=== PATIENT | male | born 2000 | race African-American/Black ===

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

== ENCOUNTER 2020-05-07 07:25 | Emergency (ER) | payer OTHER ==
[2020-05-07] MEDS ORDERED: NA CHLORIDE 0.9% 1,000 ML ONE (07:58)
[2020-05-07] MEDS ORDERED: ONDANSETRON 4 MG/2 ML VIAL ONE (07:59)
[2020-05-07 08:08] LABS: Absolute Lymphocytes (CBC) 0.3 K/uL (0.7-4.9); Basophils % 0.3 % (0-1.3); Hematocrit 50.8 % (39.6-49.0); Lymphocytes % 3.3 % (15.3-44.8); MPV 9.9 fL (7.6-11.3); RBC Red Blood Cell Count 6.24 M/uL (4.33-5.43)
[2020-05-07 08:16] LABS: ALT/SGPT 40 U/L (12-78); AST/SGOT 23 U/L (15-37); Albumin 4.2 g/dL (3.4-5.0); Alkaline Phosphatase 98 U/L (45-117); BUN Blood Urea Nitrogen 12 mg/dL (7-18); Bicarbonate 27 mmol/L (21-32); Bilirubin Direct 0.2 mg/dL (0-0.2); Bilirubin Total 0.8 mg/dL (0.2-1.0); Glucose Level 104 mg/dL (74-106); Lipase 55 U/L (73-393); Protein, Total 8.2 g/dL (6.4-8.2); Sodium Level 141 mmol/L (136-145)
[2020-05-07 08:29] LABS: White Blood Cell Scan OK (OK)
[2020-05-07 08:30] LABS: Blood Morphology Comment NOT SEEN (NOT SEEN); Platelet Estimate ADEQ; Platelets, Giant FEW
--- NOTE | 2020-05-07 09:04 | ER ---
Nurse's Notes [facility] Name: Alessandra Harp Jr Age: 20 yrs Sex: Male : 2000 Arrival Date: 05/07/2020 Time: 07:28 Bed 7 Private MD: Diagnosis: Nausea with vomiting, unspecified Presentation: 05/07 07:35 Chief complaint: N/V and SOB x 2 days. Coronavirus screen: Client presents with at hb least one sign or symptom that may indicate coronavirus-19. Standard/surgical mask placed on the client. Provider contacted for isolation considerations. Ebola Screen: No symptoms or risks identified at this time. Initial Sepsis Screen: Does the patient meet any 2 criteria? No. Patient's initial sepsis screen is negative. Does the patient have a suspected source of infection? No. Patient's initial sepsis screen is negative. Risk Assessment: Do you want to hurt yourself or someone else? Patient reports no desire to harm self or others. Onset of symptoms was May 06, 2020. 07:35 Method Of Arrival: Ambulatory hb 07:35 Acuity: SIVA 3 hb Historical: - Allergies: 07:38 NKDA; hb - Home Meds: 07:38 Adderall XR 20 mg Oral cp24 once daily [Active]; albuterol sulfate 2.5 mg/0.5 mL Inhl hb nebu 0.5 mL every 6 hours [Active]; [place] Carbonate Oral [Active]; ProAir HFA 90 mcg/actuation inhalation HFAA 1 puff every 4 hours [Active]; pt stated he no longer takes meds [Active]; - PMHx: 07:38 ADD/ADHD; Asthma; Bipolar disorder; hb - PSHx: 07:38 None; hb - Immunization history:: Adult Immunizations up to date. - Social history:: Smoking status: Patient denies any tobacco usage or history of. - Family history:: not pertinent. - Hospitalizations: : No recent hospitalization is reported. Screenin:39 Abuse screen: Denies threats or abuse. Denies injuries from another. Nutritional hb screening: No deficits noted. Tuberculosis screening: No symptoms or risk factors identified. Fall Risk None identified. Assessment: 07:48 General: Appears in no apparent distress. Behavior is calm, cooperative. Pain: Denies hb pain. Neuro: Level of Consciousness is awake, alert, obeys commands, Oriented to person, place, time, situation. Cardiovascular: Patient's skin is warm and dry. Respiratory: Reports shortness of breath on exertion Respiratory effort is even, unlabored, Respiratory pattern is regular, symmetrical. GI: Reports nausea, vomiting. : No signs and/or symptoms were reported regarding the genitourinary system. EENT: No signs and/or symptoms were reported regarding the EENT system. Derm: Skin is pink, warm \T\ dry. Musculoskeletal: No signs and/or symptoms reported regarding the musculoskeletal system. 08:30 Reassessment: Patient appears in no apparent distress at this time. Patient and/or hb family updated on plan of care and expected duration. Pain level reassessed. Patient is alert, oriented x 3, equal unlabored respirations, skin warm/dry/pink. Vital Signs: 07:35 BP 135 / 86; Pulse 64; Resp 16; Temp 97.8; Pulse Ox 99% on R/A; hb 08:30 BP 124 / 68; Pulse 66; Resp 15; Pulse Ox 99% on R/A; hb ED Course: 07:28 Patient arrived in ED. ds1 07:31 Joey Manriquez MD is Attending Physician. rn 07:35 Alissa Stone RN is Primary Nurse. hb 07:38 Triage completed. hb 07:38 Arm band placed on. hb 07:39 Patient has correct armband on for positive identification. Bed in low position. Call hb light in reach. 07:44 Inserted saline lock: 20 gauge in right antecubital area, using aseptic technique. hb ,using aseptic technique. by [place] Blood collected. 09:02 Basic Metabolic Panel Sent. sv 09:11 No provider procedures requiring assistance completed. IV discontinued, intact, hb bleeding controlled, No redness/swelling at site. Administered Medications: 07:46 Drug: Zofran (Ondansetron) 4 mg Route: IVP; Site: right antecubital; hb 08:15 Follow up: Response: No adverse reaction hb 07:47 Drug: NS 0.9% 1000 ml Route: IV; Rate: 1000 ml; Site: right antecubital; hb 08:32 Follow up: Response: No adverse reaction; IV Status: Completed infusion; IV Intake: hb 1000ml Intake: 08:32 IV: 1000ml; Total: 1000ml. hb Outcome: 09:03 Discharge ordered by . rn 09:11 Discharged to home ambulatory. hb 09:11 Condition: stable 09:11 Discharge instructions given to patient, Instructed on discharge instructions, follow up and referral plans. medication usage, Demonstrated understanding of instructions, follow-up care, medications, Prescriptions given X 1. 09:12 Patient left the ED. hb Signatures: Vanna Jain RN RN Anny Cuevas ds1 Joey Manriquez MD MD rn Baxter, Heather, RN RN hb Corrections: (The following items were deleted from the chart) 07:48 07:35 BP 135 / 86; Pulse 64bpm; Resp 16bpm; Pulse Ox 99% RA; hb hb
--- NOTE | 2020-05-07 09:04 | EDPHYS ---
Physician Documentation [facility] Name: Alessandra Harp Jr Age: 20 yrs Sex: Male : 2000 Arrival Date: 05/07/2020 Time: 07:28 Bed 7 Private MD: ED Physician Joey Manriquez HPI: 05/07 07:44 This 20 yrs old Black Male presents to ER via Ambulatory with complaints of rn Nausea/Vomiting. 07:44 The patient presents to the emergency department with nausea, vomiting, diarrhea. The rn patient presents to the emergency department with abdominal pain. Onset: The symptoms/episode began/occurred yesterday. Possible causes: bad food exposure. The symptoms are aggravated by nothing. The symptoms are alleviated by nothing. Associated signs and symptoms: Pertinent positives: diarrhea, nausea, vomiting, Pertinent negatives: abdominal pain, fever, GI bleeding. Severity of symptoms: At their worst the symptoms were mild in the emergency department the symptoms are unchanged. It is unknown whether or not the patient has had similar symptoms in the past. The patient has not recently seen a physician. Reports went ot visit family in [place], came back yesterday, began with nausea/vomiting/diarrhea, no blood in stool, no fever, no abd pain. Reports 1 other person also with vomiting in group. No cough. Reports has anxiety and during episodes of vomiting felt sob, no cough, not currently sob.. Historical: - Allergies: 07:38 NKDA; hb - Home Meds: 07:38 Adderall XR 20 mg Oral cp24 once daily [Active]; albuterol sulfate 2.5 mg/0.5 mL Inhl hb nebu 0.5 mL every 6 hours [Active]; [place] Carbonate Oral [Active]; ProAir HFA 90 mcg/actuation inhalation HFAA 1 puff every 4 hours [Active]; pt stated he no longer takes meds [Active]; - PMHx: 07:38 ADD/ADHD; Asthma; Bipolar disorder; hb - PSHx: 07:38 None; hb - Immunization history:: Adult Immunizations up to date. - Social history:: Smoking status: Patient denies any tobacco usage or history of. - Family history:: not pertinent. - Hospitalizations: : No recent hospitalization is reported. ROS: 07:44 Constitutional: Negative for fever, chills, and weight loss, Eyes: Negative for injury, rn pain, redness, and discharge, Neck: Negative for injury, pain, and swelling, Cardiovascular: Negative for chest pain, palpitations, and edema, Respiratory: Negative for shortness of breath, cough, wheezing, and pleuritic chest pain, Abdomen/GI: + nausea/vomiting/diarrhea, no abd pain Back: Negative for injury and pain, MS/Extremity: Negative for injury and deformity, Skin: Negative for injury, rash, and discoloration, Neuro: Negative for headache, weakness, numbness, tingling, and seizure. 07:44 All other systems are negative. Exam: 07:44 Constitutional: This is a well developed, well nourished patient who is awake, alert, rn and in no acute distress. Ambulatory to room without difficulty. Head/Face: Normocephalic, atraumatic. Eyes: Pupils equal round and reactive to light, extra-ocular motions intact. Lids and lashes normal. Conjunctiva and sclera are non-icteric and not injected. Cornea within normal limits. Periorbital areas with no swelling, redness, or edema. ENT: MMM Cardiovascular: Regular rate and rhythm. No pulse deficits. Respiratory: No increased work of breathing, no retractions or nasal flaring. Abdomen/GI: soft, non-tender Skin: Warm, dry with normal turgor. Normal color with no rashes, no lesions, and no evidence of cellulitis. MS/ Extremity: Pulses equal, no cyanosis. Neurovascular intact. Full, normal range of motion. Equal circumference. Neuro: Awake and alert, GCS 15, oriented to person, place, time, and situation. Cranial nerves II-XII grossly intact. Motor strength 5/5 in all extremities. Sensory grossly intact. Cerebellar exam normal. Normal gait. Vital Signs: 07:35 BP 135 / 86; Pulse 64; Resp 16; Temp 97.8; Pulse Ox 99% on R/A; hb 08:30 BP 124 / 68; Pulse 66; Resp 15; Pulse Ox 99% on R/A; hb MDM: 07:31 Patient medically screened. rn 09:02 Differential diagnosis: Nonspecific abd pain, pancreatitis, appendicitis, viral rn gastroenteritis, gastroenteritis, viral syndrome, food poisoning. Data reviewed: vital signs, nurses notes, lab test result(s), and as a result, I will discharge patient. Counseling: I had a detailed discussion with the patient and/or guardian regarding: the historical points, exam findings, and any diagnostic results supporting the discharge/admit diagnosis, lab results, the need for outpatient follow up, to return to the emergency department if symptoms worsen or persist or if there are any questions or concerns that arise at home. Response to treatment: the patient's symptoms have markedly improved after treatment, and as a result, I will discharge patient. Special discussion: I discussed with the patient/guardian in detail that at this point there is no indication for admission to the hospital. It is understood, however, that if the symptoms persist or worsen the patient needs to return immediately for re-evaluation. ED course: No elevation of WBC, afebrile, no abd tenderness on exam, will not get CT abdomen for further evaluation at this time, will dc home with prn zofran and return precautions. . 05/07 07:37 Order name: Basic Metabolic Panel rn 05/07 07:37 Order name: CBC with Diff; Complete Time: 09:02 05/07 07:37 Order name: Hepatic Function; Complete Time: 09:02 rn 05/07 07:37 Order name: Lipase; Complete Time: 09:02 rn 05/07 07:38 Order name: Basic Metabolic Panel; Complete Time: 09:02 EDWI 05/07 08:10 Order name: CBC Smear Scan; Complete Time: 09:02 [facility] 05/07 07:37 Order name: IV Saline Lock; Complete Time: 07:47 rn 05/07 07:37 Order name: Labs collected and sent; Complete Time: 07:47 rn Administered Medications: 07:46 Drug: Zofran (Ondansetron) 4 mg Route: IVP; Site: right antecubital; hb 08:15 Follow up: Response: No adverse reaction hb 07:47 Drug: NS 0.9% 1000 ml Route: IV; Rate: 1000 ml; Site: right antecubital; hb 08:32 Follow up: Response: No adverse reaction; IV Status: Completed infusion; IV Intake: hb 1000ml Disposition: 05/07/20 09:03 Discharged to Home. Impression: Nausea with vomiting, unspecified. - Condition is Stable. - Discharge Instructions: Nausea and Vomiting, Adult. - Prescriptions for Zofran ODT 4 mg Oral tablet,disintegrating - place 1 tablet by TRANSLINGUAL route every 8 hours As needed; 20 tablet. - Medication Reconciliation Form, Thank You Letter, Antibiotic Education, Prescription Opioid Use form. - Follow up: Private Physician; When: As needed; Reason: Recheck today's complaints, Re-evaluation by your physician. - Problem is new. - Symptoms have improved. Signatures: Dispatcher [employer] EDJoey Nash MD MD rn Baxter, Heather, RN RN hb Corrections: (The following items were deleted from the chart) 09:12 09:03 05/07/2020 09:03 Discharged to Home. Impression: Nausea with vomiting, hb unspecified. Condition is Stable. Forms are Medication Reconciliation Form, Thank You Letter, Antibiotic Education, Prescription Opioid Use. Follow up: Private Physician; When: As needed; Reason: Recheck today's complaints, Re-evaluation by your physician. Problem is new. Symptoms have improved. rn
[2020-05-07 09:16] VITALS: TEMP 97.8; O2SAT 99
[2020-05-07 09:17] VITALS: BP 124/68
== END 2020-05-07 09:12 | disposition home or self-care (01) ==
LOC: ER 07:25
DX: R11.2 Nausea with vomiting, unspecified (principal); J45.909 Unspecified asthma, uncomplicated; F90.9 Attention-deficit hyperactivity disorder, unspecified type
CPT/HCPCS: 85025; 80048; 36415; 80076; 83690; J7030; J2405; 96361; 96374; 99284

== ENCOUNTER 2020-05-07 23:25 | Emergency (ER) | payer OTHER ==
--- NOTE | 2020-05-08 01:06 | ER ---
Nurse's Notes [facility] Name: Alessandra Harp Jr Age: 20 yrs Sex: Male : 2000 Arrival Date: 05/07/2020 Time: 23:27 Bed 8 Private MD: Diagnosis: Shortness of breath-resolved Presentation: 05/07 23:31 Chief complaint: Seen this AM in this ER for same complaints, reports not feeling sg better at this time. Risk Assessment: Do you want to hurt yourself or someone else? Patient reports no desire to harm self or others. Onset of symptoms was May 07, 2020. Care prior to arrival: None. Transition of care: patient was not received from another setting of care. 23:31 Method Of Arrival: Ambulatory 23:31 Acuity: SIVA 4 05/08 00:28 Coronavirus screen: Client denies travel out of the [place] in the last 14 days. Ebola mg2 Screen: No symptoms or risks identified at this time. Initial Sepsis Screen: Does the patient meet any 2 criteria? No. Patient's initial sepsis screen is negative. Does the patient have a suspected source of infection? No. Patient's initial sepsis screen is negative. Triage Assessment: 00:29 General: Appears in no apparent distress. comfortable, Behavior is calm, cooperative. mg2 Respiratory: the patient has mild shortness of breath. Historical: - Allergies: 05/07 23:32 NKDA; sg - PMHx: 23:32 ADD/ADHD; Asthma; Bipolar disorder; sg - PSHx: 23:32 None; sg - Immunization history:: Flu vaccine status is unknown. - Social history:: Patient/guardian denies using alcohol, street drugs, IV drugs, The patient lives with family, Smoking status: Patient reports the use of cigarette tobacco products. - Family history:: not pertinent. Screenin/23 00:28 Abuse screen: Denies threats or abuse. Denies injuries from another. Nutritional mg2 screening: No deficits noted. Tuberculosis screening: No symptoms or risk factors identified. Fall Risk None identified. Assessment: 00:26 General: Appears in no apparent distress. comfortable, Behavior is calm, cooperative. mg2 Pain: Complains of pain in chest. Neuro: Level of Consciousness is awake, alert, obeys commands, Oriented to person, place, time, situation. Cardiovascular: Rhythm is regular. Respiratory: Reports shortness of breath Airway is patent Respiratory effort is even, unlabored, Breath sounds are clear. GI: No signs and/or symptoms were reported involving the gastrointestinal system. : No signs and/or symptoms were reported regarding the genitourinary system. EENT: No signs and/or symptoms were reported regarding the EENT system. Derm: Skin is intact, is healthy with good turgor. Musculoskeletal: Circulation, motion, and sensation intact. Capillary refill < 3 seconds. Vital Signs: 00:26 BP 140 / 85; Pulse 56; Resp 18; Temp 98.4(O); Pulse Ox 97% ; Weight 94.8 kg; Height 6 mg2 ft. 0 in. (182.88 cm); 01:16 BP 126 / 73; Pulse 59; Resp 18; Pulse Ox 98% on R/A; mg2 00:26 Body Mass Index 28.35 (94.80 kg, 182.88 cm) mg2 ED Course: 05/07 23:27 Patient arrived in ED. cf2 23:31 Triage completed. sg 23:32 Arm band placed on. sg 05/08 00:22 Radha Evans MD is Attending Physician. ma2 00:22 Fidel Cruz RN is Primary Nurse. mg2 00:28 No provider procedures requiring assistance completed. Patient did not have IV access mg2 during this emergency room visit. 00:29 Patient has correct armband on for positive identification. Pulse ox on. NIBP on. mg2 Administered Medications: 00:26 Not Given (na): DuoNeb (albuterol 2.5 mg, ipratropium 0.5 mg) (3:1) (2.5 mg - 0.5 mg) 3 ma2 ml Nebulizer once Outcome: 01:05 Discharge ordered by . [email or web address] 01:16 Discharged to home ambulatory. mg2 01:16 Condition: stable 01:16 Discharge instructions given to patient, Instructed on discharge instructions, follow up and referral plans. Demonstrated understanding of instructions, follow-up care. 01:16 Patient left the ED. mg2 Signatures: Woody New RN RN sg Alzahri, Mohammad, MD MD ma2 Gardose, Michele, RN RN [facility] [place]un[place] Elizalde 2
--- NOTE | 2020-05-08 01:06 | EDPHYS ---
Physician Documentation [facility] Name: Alessandra Harp Jr Age: 20 yrs Sex: Male : 2000 Arrival Date: 05/07/2020 Time: 23:27 Bed 8 Private MD: ED Physician Radha Evans HPI: 05/08 00:29 This 20 yrs old Black Male presents to ER via Ambulatory with complaints of Breathing ma2 Difficulty, Abdominal Pain, Chills. 00:29 The patient has shortness of breath at rest. Onset: The symptoms/episode began/occurred ma2 gradually, 2 hour(s) ago. Associated signs and symptoms: Pertinent negatives: productive cough, dizziness, hemoptysis, loss of consciousness, nausea, visual changes. Severity of symptoms: At their worst the symptoms were very mild in the emergency department the symptoms have resolved. The patient has not experienced similar symptoms in the past. Historical: - Allergies: 05/07 23:32 NKDA; sg - PMHx: 23:32 ADD/ADHD; Asthma; Bipolar disorder; sg - PSHx: 23:32 None; sg - Immunization history:: Flu vaccine status is unknown. - Social history:: Patient/guardian denies using alcohol, street drugs, IV drugs, The patient lives with family, Smoking status: Patient reports the use of cigarette tobacco products. - Family history:: not pertinent. ROS: 05/08 00:29 Constitutional: Negative for fever, chills, and weight loss. ma2 All other systems are negative. Exam: 00:29 Constitutional: This is a well developed, well nourished patient who is awake, alert, ma2 and in no acute distress. Head/Face: Normocephalic, atraumatic. Eyes: Pupils equal round and reactive to light, extra-ocular motions intact. Lids and lashes normal. Conjunctiva and sclera are non-icteric and not injected. Cornea within normal limits. Periorbital areas with no swelling, redness, or edema. ENT: Nares patent. No nasal discharge, no septal abnormalities noted. Tympanic membranes are normal and external auditory canals are clear. Oropharynx with no redness, swelling, or masses, exudates, or evidence of obstruction, uvula midline. Mucous membranes moist. Neck: Trachea midline, no thyromegaly or masses palpated, and no cervical lymphadenopathy. Supple, full range of motion without nuchal rigidity, or vertebral point tenderness. No Meningismus. Chest/axilla: Normal chest wall appearance and motion. Nontender with no deformity. No lesions are appreciated. Cardiovascular: Regular rate and rhythm with a normal S1 and S2. No gallops, murmurs, or rubs. Normal PMI, no JVD. No pulse deficits. Respiratory: Lungs have equal breath sounds bilaterally, clear to auscultation and percussion. No rales, rhonchi or wheezes noted. No increased work of breathing, no retractions or nasal flaring. Abdomen/GI: Soft, non-tender, with normal bowel sounds. No distension or tympany. No guarding or rebound. No evidence of tenderness throughout. Back: No spinal tenderness. No costovertebral tenderness. Full range of motion. Skin: Warm, dry with normal turgor. Normal color with no rashes, no lesions, and no evidence of cellulitis. MS/ Extremity: Pulses equal, no cyanosis. Neurovascular intact. Full, normal range of motion. Neuro: Awake and alert, GCS 15, oriented to person, place, time, and situation. Cranial nerves II-XII grossly intact. Motor strength 5/5 in all extremities. Sensory grossly intact. Cerebellar exam normal. Normal gait. Vital Signs: 00:26 BP 140 / 85; Pulse 56; Resp 18; Temp 98.4(O); Pulse Ox 97% ; Weight 94.8 kg; Height 6 mg2 ft. 0 in. (182.88 cm); 01:16 BP 126 / 73; Pulse 59; Resp 18; Pulse Ox 98% on R/A; mg2 00:26 Body Mass Index 28.35 (94.80 kg, 182.88 cm) mg2 MDM: 00:22 Patient medically screened. ma2 00:29 Differential diagnosis: Anxiety Reaction asthma, Bronchitis reactive airway disease. ma2 Data reviewed: vital signs, nurses notes. 05/08 00:26 Order name: EKG - Nurse/Tech; Complete Time: 00:29 mg2 Administered Medications: 00:26 Not Given (na): DuoNeb (albuterol 2.5 mg, ipratropium 0.5 mg) (3:1) (2.5 mg - 0.5 mg) 3 ma2 ml Nebulizer once Disposition: 05/08/20 01:05 Discharged to Home. Impression: Shortness of breath - resolved. - Condition is Stable. - Discharge Instructions: Shortness of Breath, [id number]. - Medication Reconciliation Form, Thank You Letter, Antibiotic Education, Prescription Opioid Use form. - Follow up: Private Physician; When: Tomorrow; Reason: If symptoms return, Continuance of care. Signatures: Woody New RN RN Radha Evans MD MD ma2 Fidel Cruz RN RN mg2 Corrections: (The following items were deleted from the chart) 01:16 01:05 05/08/2020 01:05 Discharged to Home. Impression: Shortness of breath - resolved. mg2 Condition is Stable. Discharge Instructions: Shortness of Breath, [id number]. Forms are Medication Reconciliation Form, Thank You Letter, Antibiotic Education, Prescription Opioid Use. Follow up: Private Physician; When: Tomorrow; Reason: If symptoms return, Continuance of care. ma2
[2020-05-08 01:36] VITALS: TEMP 98.4
[2020-05-08 01:37] VITALS: BP 126/73; O2SAT 98
--- NOTE | 2020-05-09 07:05 | EKG ---
Test Date: 2020-05-07 Test Time: 23:32:19 Door Patcher: MG MEASUREMENT RESULTS: Intervals: Rate: 57 IL: 176 QRSD: 116 QT: 402 QTc: 391 [place]: P: IL: 176 QRS: -52 T: 18 INTERPRETIVE STATEMENTS: Sinus bradycardia with sinus arrhythmia Left axis deviation Septal infarct, age undetermined Abnormal ECG Compared to ECG 04/20/2017 17:18:59 Sinus rhythm no longer present Myocardial infarct finding still present Electronically Signed On 05-09-20 07:02:37 CDT by Juan Luis Mahajan
== END 2020-05-08 01:16 | disposition home or self-care (01) ==
LOC: ER 23:25
DX: R06.02 Shortness of breath (principal); F17.210 Nicotine dependence, cigarettes, uncomplicated
CPT/HCPCS: 93005; 99283

== ENCOUNTER 2020-05-20 16:37 | Emergency (ER) | payer OTHER ==
--- NOTE | 2020-05-20 18:59 | RAD REPORT ---
EXAM DESCRIPTION: RAD - Chest Single View - 05/20/2020 6:35 pm CLINICAL HISTORY: cough, sob Chest pain. COMPARISON: Chest Pa And Lat (2 Views) dated 04/20/2017; Chest Single View dated 04/18/2017; Chest Singl e View dated 12/29/2015 FINDINGS: Portable technique limits examination quality. The lungs are grossly clear. The heart is normal in size. No displaced fractures. IMPRESSION: No acute intrathoracic process suspected.
[2020-05-20] MEDS ORDERED: NA CHLORIDE 0.9% 1,000 ML ONE (20:27)
[2020-05-20 20:28] LABS: Basophils % 0.8 % (0-1.3); Lymphocytes % 29.8 % (15.3-44.8); MPV 8.8 fL (7.6-11.3); RBC Red Blood Cell Count 5.61 M/uL (4.33-5.43)
[2020-05-20 20:45] LABS: BUN Blood Urea Nitrogen 8 mg/dL (7-18); Bicarbonate 29 mmol/L (21-32); Glucose Level 89 mg/dL (74-106); Potassium 3.6 mmol/L (3.5-5.1); Sodium Level 140 mmol/L (136-145); Troponin (Emerg Dept Use Only) < 0.02 ng/mL (0.0-0.045)
--- NOTE | 2020-05-20 20:50 | EDPHYS ---
Physician Documentation [facility] Name: Alessandra Harp Jr Age: 20 yrs Sex: Male : 2000 Arrival Date: 05/20/2020 Time: 16:38 Bed 18 Private MD: ED Physician Radha Evans HPI: 05/20 17:36 This 20 yrs old Black Male presents to ER via Ambulatory with complaints of doesnt feel jmm good. 17:36 This is a 20 year old male with a history of asthma, bipolar that presents to the ED jm with complaints of fatigue, loss of tast and smell, beginning approx 2 weeks ago. Patient denies chest pain but will have occasional episodes of SOB. . Onset: The symptoms/episode began/occurred gradually, 2 week(s) ago. Historical: - Allergies: 16:48 NKDA; jd3 - Home Meds: 16:48 Adderall XR 20 mg Oral cp24 once daily [Active]; albuterol sulfate 2.5 mg/0.5 mL Inhl jd3 nebu 0.5 mL every 6 hours [Active]; ProAir HFA 90 mcg/actuation inhalation HFAA 1 puff every 4 hours [Active]; Abilify oral oral [Active]; - PMHx: 16:48 ADD/ADHD; Asthma; Bipolar disorder; jd3 - PSHx: 16:48 None; jd3 - Immunization history:: Adult Immunizations up to date. - Social history:: Smoking status: Patient denies any tobacco usage or history of. ROS: 17:36 Constitutional: Positive for fatigue. [facility] 17:36 Cardiovascular: Negative for chest pain, palpitations. 17:36 Respiratory: Positive for shortness of breath. 17:36 All other systems are negative. Exam: 17:36 Constitutional: This is a well developed, well nourished patient who is awake, alert, jmm and in no acute distress. Head/Face: atraumatic. Eyes: EOMI, no conjunctival erythema appreciated ENT: Moist Mucus Membranes Neck: Trachea midline, Supple Chest/axilla: Normal chest wall appearance and motion. Cardiovascular: Regular rate and rhythm. No edema appreciated Respiratory: Normal respirations, no respiratory distress appreciated Abdomen/GI: Non distended, soft Back: Normal ROM Skin: General appearance color normal MS/ Extremity: Moves all extremities, no obvious deformities appreciated, no edema noted to the lower extremities Neuro: Awake and alert, normal gait Psych: Behavior is normal, Mood is normal, Patient is cooperative and pleasant 20:28 ECG was reviewed by the Attending Physician. [facility] Vital Signs: 16:48 BP 130 / 76; Pulse 62; Resp 17 S; Temp 97.9(TE); Pulse Ox 99% on R/A; Weight 86.18 kg jd3 (R); Height 6 ft. 0 in. (182.88 cm) (R); Pain 8/10; 19:11 BP 129 / 72; Pulse 48; Resp 16; Pulse Ox 97% on R/A; zb 16:48 Body Mass Index 25.77 (86.18 kg, 182.88 cm) jd3 MDM: 17:36 Patient medically screened. [facility] 20:49 Data reviewed: vital signs, nurses notes. Counseling: I had a detailed discussion with [facility] the patient and/or guardian regarding: the historical points, exam findings, and any diagnostic results supporting the discharge/admit diagnosis, lab results, the need for outpatient follow up, to return to the emergency department if symptoms worsen or persist or if there are any questions or concerns that arise at home. ED course: Patient is alert and non toxic in appearance in the ED. No signs of resp distress. I do not suspect PE> Patient is otherwise given strict return precautions. patient understood and agrees with the plan of care. . 05/20 20:08 Order name: BMP; Complete Time: 20:46 [facility] 05/20 17:53 Order name: Chest Single View XRAY; Complete Time: 19:07 [facility] 05/20 20:08 Order name: CBC with Diff; Complete Time: 20:34 [facility] 05/20 20:09 Order name: Troponin (emerg Dept Use Only); Complete Time: 20:46 [facility] 05/20 20:42 Order name: SARS-COV-2 RT PCR; Complete Time: 20:44 [facility] 05/20 20:08 Order name: Saline Lock; Complete Time: 20:19 [facility] 05/20 20:09 Order name: EKG - Nurse/Tech; Complete Time: 20:43 jm EC:28 Rate is 52 beats/min. Rhythm is irregular, Sinus arrythmia. QRS [place] is Normal. ND jmm interval is normal. QRS interval is normal. QT interval is normal. No Q waves. T waves are Normal. No ST changes noted. Reviewed by me. Administered Medications: 20:26 Drug: NS 0.9% 1000 ml Route: IV; Rate: 1 bolus; Site: right antecubital; zb 21:52 Follow up: Response: No adverse reaction; IV Status: Completed infusion; IV Intake: zb 1000ml Disposition: 05/20/20 20:50 Discharged to Home. Impression: Coronavirus infection, unspecified. - Condition is Stable. - Discharge Instructions: COVID-19. - Prescriptions for Albuterol Sulfate 90 mcg/actuation - inhale 1-2 puff by INHALATION route every 4-6 hours; 1 Inhaler. - Medication Reconciliation Form, Thank You Letter, Antibiotic Education, Prescription Opioid Use form. - Follow up: Private Physician; When: 2 - 3 days; Reason: Recheck today's complaints, Continuance of care, Re-evaluation by your physician. - Notes: Please take 10,000 IU of vitamin D a day. Addendum: 05/24/2020 19:10 Co-signature as Attending Physician, Radha Evans MD. m a2 Signatures: Dispatcher [employer] [facility] Tone Zamora PA PA jmm Davies, Jonathon, RN RN Radha Nassar MD MD ma2 Blanca Sarabia RN RN zb Corrections: (The following items were deleted from the chart) 05/20 19:49 17:54 CORONAVIRUS+MR.LAB.BRZ ordered. [facility] 21:53 20:50 05/20/2020 20:50 Discharged to Home. Impression: Coronavirus infection, zb unspecified. Condition is Stable. Forms are Medication Reconciliation Form, Thank You Letter, Antibiotic Education, Prescription Opioid Use. Follow up: Private Physician; When: 2 - 3 days; Reason: Recheck today's complaints, Continuance of care, Re-evaluation by your physician. rima
--- NOTE | 2020-05-20 20:50 | ER ---
Nurse's Notes [facility] Name: Alessandra Harp Jr Age: 20 yrs Sex: Male : 2000 Arrival Date: 05/20/2020 Time: 16:38 Bed 18 Private MD: Diagnosis: Coronavirus infection, unspecified Presentation: 05/20 16:43 Chief complaint: Patient states: "I am having chills all over and I am feeling very jd3 nauseous. I had a stomach virus 05/05/20, and I was prescribed nausea meds and that isn't even working. I also I am getting some shortness that comes and goes.". Coronavirus screen: chills, Client presents with at least one sign or symptom that may indicate coronavirus-19. Standard/surgical mask placed on the client. Provider contacted for isolation considerations. Ebola Screen: Patient negative for fever greater than or equal to 101.5 degrees Fahrenheit, and additional compatible Ebola Virus Disease symptoms. Initial Sepsis Screen: Does the patient meet any 2 criteria? No. Patient's initial sepsis screen is negative. Does the patient have a suspected source of infection? No. Patient's initial sepsis screen is negative. Risk Assessment: Do you want to hurt yourself or someone else? Patient reports no desire to harm self or others. Onset of symptoms was May 20, 2020. 16:43 Method Of Arrival: Ambulatory jd3 16:43 Acuity: SIVA 4 jd3 Historical: - Allergies: 16:48 NKDA; jd3 - Home Meds: 16:48 Adderall XR 20 mg Oral cp24 once daily [Active]; albuterol sulfate 2.5 mg/0.5 mL Inhl jd3 nebu 0.5 mL every 6 hours [Active]; ProAir HFA 90 mcg/actuation inhalation HFAA 1 puff every 4 hours [Active]; Abilify oral oral [Active]; - PMHx: 16:48 ADD/ADHD; Asthma; Bipolar disorder; jd3 - PSHx: 16:48 None; jd3 - Immunization history:: Adult Immunizations up to date. - Social history:: Smoking status: Patient denies any tobacco usage or history of. Screenin:11 Abuse screen: Denies threats or abuse. Denies injuries from another. Nutritional zb screening: No deficits noted. Tuberculosis screening: No symptoms or risk factors identified. Fall Risk None identified. Assessment: 19:09 General: Appears in no apparent distress. uncomfortable, Behavior is calm, cooperative, zb appropriate for age, Reports chills for >3 days, feeling ill for > 3 days, fatigue for >3 days. Pain: Complains of pain in generalized body aches. Quality of pain is described as aching. Neuro: Level of Consciousness is awake, alert, obeys commands, Oriented to person, place, time, situation, Moves all extremities. Full function. Cardiovascular: Capillary refill < 3 seconds Patient's skin is warm and dry. Respiratory: Reports shortness of breath at rest Airway is patent Respiratory effort is even, unlabored, Respiratory pattern is regular, symmetrical, Denies cough. GI: Reports diarrhea, nausea, vomiting. Derm: Skin is intact, is healthy with good turgor, Skin is dry, Skin is normal, Skin temperature is warm. Musculoskeletal: Circulation, motion, and sensation intact. Range of motion: intact in all extremities. 20:00 Reassessment: Patient appears in no apparent distress at this time. Patient and/or zb family updated on plan of care and expected duration. Pain level reassessed. Patient is alert, oriented x 3, equal unlabored respirations, skin warm/dry/pink. 21:00 Reassessment: Patient appears in no apparent distress at this time. Patient and/or zb family updated on plan of care and expected duration. Pain level reassessed. 21:41 Reassessment: IV fluid infusing. d/c pending completion of IV fluids. zb Vital Signs: 16:48 BP 130 / 76; Pulse 62; Resp 17 S; Temp 97.9(TE); Pulse Ox 99% on R/A; Weight 86.18 kg jd3 (R); Height 6 ft. 0 in. (182.88 cm) (R); Pain 8/10; 19:11 BP 129 / 72; Pulse 48; Resp 16; Pulse Ox 97% on R/A; zb 16:48 Body Mass Index 25.77 (86.18 kg, 182.88 cm) jd3 ED Course: 16:38 Patient arrived in ED. as 16:46 Triage completed. jd3 16:48 Arm band placed on. jd3 17:26 Mickail, Tone, PA is PHCP. jm 17:26 Radha Evans MD is Attending Physician. [facility] 18:10 Blanca Sarabia, RN is Primary Nurse. zb 18:35 Chest Single View XRAY In Process Unspecified. EDMS 19:09 COVID swab sent to lab. zb 19:11 Patient has correct armband on for positive identification. Bed in low position. Call zb light in reach. Side rails up X 1. Pulse ox on. NIBP on. Door closed. Noise minimized. 20:19 Inserted saline lock: 20 gauge in right antecubital area, using aseptic technique. dh4 Blood collected. 21:52 No provider procedures requiring assistance completed. IV discontinued, intact, zb bleeding controlled, No redness/swelling at site. Pressure dressing applied. Administered Medications: 20:26 Drug: NS 0.9% 1000 ml Route: IV; Rate: 1 bolus; Site: right antecubital; zb 21:52 Follow up: Response: No adverse reaction; IV Status: Completed infusion; IV Intake: zb 1000ml Intake: 21:52 IV: 1000ml; Total: 1000ml. zb Outcome: 20:50 Discharge ordered by MD. jm 21:52 Discharged to home ambulatory. zb 21:52 Condition: stable 21:52 Discharge instructions given to patient, Instructed on discharge instructions, follow up and referral plans. medication usage, Demonstrated understanding of instructions, follow-up care, medications, Prescriptions given X 1. 21:53 Patient left the ED. zb Signatures: Dispatcher [employer] EDMS Tone Zamora PA PA jmm Martinez, Amelia as Davies, Jonathon RN RN Wayne Holliday 4 Blanca Sarabia, LAMIN RN zb
[2020-05-20 22:04] VITALS: TEMP 97.9
[2020-05-20 22:05] VITALS: BP 129/72; O2SAT 97
--- NOTE | 2020-05-21 08:56 | EKG ---
Test Date: 2020-05-20 Test Time: 20:25:21 Director [employer]: STEVE MEASUREMENT RESULTS: Intervals: Rate: 52 AL: 192 QRSD: 102 QT: 428 QTc: 398 [place]: P: 35 AL: 192 QRS: -14 T: 34 INTERPRETIVE STATEMENTS: Sinus bradycardia with sinus arrhythmia Septal infarct, age undetermined Abnormal ECG Compared to ECG 05/07/2020 23:32:19 Left-axis deviation no longer present Myocardial infarct finding still present Electronically Signed On 05-21-20 08:55:13 CDT by Juan Luis Mahajan
== END 2020-05-20 21:53 | disposition home or self-care (01) ==
LOC: ER 16:37
DX: U07.1 COVID-19 (principal); J45.909 Unspecified asthma, uncomplicated; F31.9 Bipolar disorder, unspecified
CPT/HCPCS: 93005; 85025; 80048; 36415; 84484; 71045; U0003; J7030; 96360; 99284

== ENCOUNTER 2020-05-23 11:09 | Emergency (ER) | payer OTHER ==
--- NOTE | 2020-05-23 13:53 | RAD REPORT ---
EXAM DESCRIPTION: Alfred Single View05/23/2020 1:44 pm CLINICAL HISTORY: Shortness of breath COMPARISON: May 20, 2020 FINDINGS: The lungs appear clear of acute infiltrate. The heart is normal size IMPRESSION: No acute abnormalities displayed
[2020-05-23 14:22] LABS: BUN Blood Urea Nitrogen 8 mg/dL (7-18); Bicarbonate 28 mmol/L (21-32); Glucose Level 120 mg/dL (74-106); Potassium 3.6 mmol/L (3.5-5.1); Sodium Level 139 mmol/L (136-145)
--- NOTE | 2020-05-23 14:29 | RAD REPORT ---
EXAM DESCRIPTION: CT - Chest For Pe Angio - 05/23/2020 2:05 pm CLINICAL HISTORY: SOB SOB recent positive COVID diagnosis COMPARISON: Chest Single View dated 05/23/2020 TECHNIQUE: Dynamically enhanced 3 mm thick images of the chest were obtained during administration o f approximately 150mL Isovue 370 IV contrast. Coronal and oblique MIP reconstruction images were gene rated and reviewed. Exam utilizes a protocol to evaluate the pulmonary arterial tree. All CT scans are performed using dose optimization technique as appropriate and may include automated exposure control or mA/KV adjustment according to patient size. FINDINGS: No pulmonary emboli are identified. Respiratory motion at each lung base slightly degrades the examination. Pulmonary emboli are not suspected. The aorta as imaged shows no acute or suspicious finding. No pericardial thickening or effusion. No COVID-19 pneumonia or other focal lung parenchymal process. No mass, infiltrate or suspicious find ing. No pleural effusion or pleural thickening. No mediastinal or hilar suspicious masses. No chest wall masses or abnormal axillary lymphadenopathy. IMPRESSION: No pulmonary emboli identified. No COVID-19 pneumonia findings or other acute lung parenchymal process.
--- NOTE | 2020-05-23 14:46 | EDPHYS ---
Physician Documentation [facility] Name: Alessandra Harp Jr Age: 20 yrs Sex: Male : 2000 Arrival Date: 05/23/2020 Time: 11:28 Bed 30 Private MD: ED Physician Joey Manriquez HPI: 05/23 13:57 This 20 yrs old Black Male presents to ER via EMS with complaints of Shortness Of jmm Breath. 13:57 The patient has shortness of breath at rest. Onset: The symptoms/episode began/occurred jmm gradually, 2 week(s) ago. Associated signs and symptoms: Pertinent positives: cough. This is a 20 year old male with a history of asthma, bipolar that presents to the ED 2 days after diagnosis of COVID 19. Patient state earlier today developed right up quadrant abdominal pain with nausea a sob. Patient states all his symptoms are currently relieved. . Historical: - Allergies: 11:54 NKDA; ca1 - PMHx: 11:54 ADD/ADHD; Asthma; Bipolar disorder; ca1 - PSHx: 11:54 None; ca1 - Immunization history:: Flu vaccine is up to date. - Social history:: Smoking status: Patient denies any tobacco usage or history of. ROS: 13:57 Constitutional: Negative for fever, chills, and weight loss, Cardiovascular: Negative jmm for chest pain, palpitations, and edema. 13:57 Respiratory: Positive for shortness of breath. 13:57 All other systems are negative. Exam: 13:57 Constitutional: This is a well developed, well nourished patient who is awake, alert, jmm and in no acute distress. Head/Face: atraumatic. Eyes: EOMI, no conjunctival erythema appreciated ENT: Moist Mucus Membranes Neck: Trachea midline, Supple Chest/axilla: Normal chest wall appearance and motion. Cardiovascular: Regular rate and rhythm. No edema appreciated Respiratory: Normal respirations, no respiratory distress appreciated Abdomen/GI: Non distended, soft Back: Normal ROM Skin: General appearance color normal MS/ Extremity: Moves all extremities, no obvious deformities appreciated, no edema noted to the lower extremities Neuro: Awake and alert, normal gait Psych: Behavior is normal, Mood is normal, Patient is cooperative and pleasant Vital Signs: 11:51 BP 117 / 78; Pulse 65; Resp 18 S; Temp 97.8(TE); Pulse Ox 100% on R/A; Weight 90.72 kg ca1 (R); Height 6 ft. 0 in. (182.88 cm) (R); 14:40 BP 126 / 78; Pulse 65; Resp 16; Pulse Ox 98% on R/A; iw 11:51 Body Mass Index 27.12 (90.72 kg, 182.88 cm) ca1 MDM: 13:43 Patient medically screened. [facility] 14:44 Data reviewed: vital signs, nurses notes, lab test result(s), EKG, radiologic studies, [facility] CT scan. ED course: Symptoms resolved in the ED. No signs of resp distress. No chest pain. patient is otherwise given strict return precautions. patient understood and agrees with the plan of care. . 05/23 13:23 Order name: BMP; Complete Time: 14:23 [facility] 05/23 13:23 Order name: D-Dimer; Complete Time: 14:46 [facility] 05/23 13:23 Order name: Chest Single View XRAY; Complete Time: 13:53 [facility] 05/23 13:30 Order name: Saline Lock; Complete Time: 13:47 [facility] 05/23 13:45 Order name: Troponin (emerg Dept Use Only); Complete Time: 14:38 [facility] 05/23 13:51 Order name: CT Chest For PE Angio; Complete Time: 14:31 [facility] 05/23 13:30 Order name: EKG - Nurse/Tech; Complete Time: 13:42 [facility] Administered Medications: No medications were administered Disposition: 17:33 Co-signature as Attending Physician, Joey Manriquez MD. rn Disposition: 05/23/20 14:45 Discharged to Home. Impression: Coronavirus infection, unspecified. - Condition is Stable. - Discharge Instructions: Upper Respiratory Infection, Adult. - Prescriptions for Prednisone 20 mg Oral Tablet - take 3 tablet by ORAL route once daily for 5 days; 15 tablet. - Medication Reconciliation Form, Thank You Letter, Antibiotic Education, Prescription Opioid Use form. - Follow up: Private Physician; When: 2 - 3 days; Reason: Recheck today's complaints, Continuance of care, Re-evaluation by your physician. Signatures: Dispatcher [employer] EDMS Tone Zamora PA PA Alecia Rosa RN RN iw Nieto, Roman, MD MD rn Acob, LAMIN Bundy RN ca1 Corrections: (The following items were deleted from the chart) 14:53 14:45 05/23/2020 14:45 Discharged to Home. Impression: Coronavirus infection, iw unspecified. Condition is Stable. Forms are Medication Reconciliation Form, Thank You Letter, Antibiotic Education, Prescription Opioid Use. Follow up: Private Physician; When: 2 - 3 days; Reason: Recheck today's complaints, Continuance of care, Re-evaluation by your physician. daria
--- NOTE | 2020-05-23 14:46 | ER ---
Nurse's Notes [facility] Name: Alessandra Harp Jr Age: 20 yrs Sex: Male : 2000 Arrival Date: 05/23/2020 Time: 11:28 Bed 30 Private MD: Diagnosis: Coronavirus infection, unspecified Presentation: 05/23 11:51 Chief complaint: EMS states: Covid+ 05/21/2020, S/S started same day. Called for SOB this ca1 AM with N/V. 02 sat at 100% RA. Pt reports was prescribed albuterol inhaler, no relief. Denies fever at this time. Coronavirus screen: Client reports previous positive COVID test result. Date of collection: May 21, 2020 Staff notified of need for isolation. Ebola Screen: Patient negative for fever greater than or equal to 101.5 degrees Fahrenheit, and additional compatible Ebola Virus Disease symptoms Patient denies exposure to infectious person. Patient denies travel to an Ebola-affected area in the 21 days before illness onset. No symptoms or risks identified at this time. Initial Sepsis Screen: Does the patient meet any 2 criteria? No. Patient's initial sepsis screen is negative. Does the patient have a suspected source of infection? No. Patient's initial sepsis screen is negative. Risk Assessment: Do you want to hurt yourself or someone else? Patient reports no desire to harm self or others. Onset of symptoms was May 23, 2020. 11:51 Method Of Arrival: EMS: [facility] ca1 11:51 Acuity: SIVA 3 ca1 Triage Assessment: 14:50 Respiratory: Onset: The symptoms/episode began/occurred yesterday, the patient has mild iw shortness of breath. Historical: - Allergies: 11:54 NKDA; ca1 - PMHx: 11:54 ADD/ADHD; Asthma; Bipolar disorder; ca1 - PSHx: 11:54 None; ca1 - Immunization history:: Flu vaccine is up to date. - Social history:: Smoking status: Patient denies any tobacco usage or history of. Screenin:39 Abuse screen: Denies threats or abuse. Denies injuries from another. Nutritional iw screening: No deficits noted. Tuberculosis screening: No symptoms or risk factors identified. Fall Risk None identified. Assessment: 13:38 General: Appears in no apparent distress. Behavior is calm, cooperative. Pain: Denies iw pain. Neuro: Level of Consciousness is awake, alert, obeys commands, Oriented to person, place, time, Moves all extremities. Cardiovascular: Rhythm is regular. Respiratory: Reports shortness of breath on exertion Airway is patent Respiratory effort is even, unlabored, Breath sounds are clear bilaterally. GI: Reports nausea. Derm: Skin is intact, is healthy with good turgor. 14:40 Reassessment: Patient appears in no apparent distress at this time. Patient and/or iw family updated on plan of care and expected duration. Pain level reassessed. Patient is alert, oriented x 3, equal unlabored respirations, skin warm/dry/pink. Patient states feeling better. Patient states symptoms have improved. Vital Signs: 11:51 BP 117 / 78; Pulse 65; Resp 18 S; Temp 97.8(TE); Pulse Ox 100% on R/A; Weight 90.72 kg ca1 (R); Height 6 ft. 0 in. (182.88 cm) (R); 14:40 BP 126 / 78; Pulse 65; Resp 16; Pulse Ox 98% on R/A; iw 11:51 Body Mass Index 27.12 (90.72 kg, 182.88 cm) ca1 ED Course: 11:28 Patient arrived in ED. am2 11:54 Triage completed. ca1 11:54 Arm band placed on right wrist. ca1 11:57 Patient has correct armband on for positive identification. iw 13:21 Alecia Carpenter, RN is Primary Nurse. iw 13:22 Tone Zamora PA is PHCP. [facility] 13:22 Joey Manriquez MD is Attending Physician. jmm 13:44 Chest Single View XRAY In Process Unspecified. EDMS 13:59 No provider procedures requiring assistance completed. Initial lab(s) drawn, by va, iw sent to lab. Inserted saline lock: 20 gauge in left antecubital area, using aseptic technique. Blood collected. 14:05 CT Chest For PE Angio In Process Unspecified. EDMS 14:51 Patient did not have IV access during this emergency room visit. iw Administered Medications: No medications were administered Outcome: 14:45 Discharge ordered by MD. jmm 14:52 Discharged to home ambulatory. iw 14:52 Condition: good 14:52 Discharge instructions given to patient, Instructed on discharge instructions, follow up and referral plans. medication usage, Demonstrated understanding of instructions, follow-up care, medications, Prescriptions given X 1. 14:53 Patient left the ED. iw Signatures: Dispatcher [employer] EDMS Tone Zamora PA PA jmm Williams, Irene, RN RN Noemi Simmons am2 Niharika Ballard RN RN ca1
[2020-05-23 15:34] VITALS: TEMP 97.8
[2020-05-23 15:35] VITALS: BP 126/78; O2SAT 98
--- NOTE | 2020-05-24 08:51 | EKG ---
Test Date: 2020-05-23 Test Time: 13:43:18 Payroll Consultant: EDWIN MEASUREMENT RESULTS: Intervals: Rate: 55 NJ: 176 QRSD: 96 QT: 404 QTc: 386 Emerson: P: 50 NJ: 176 QRS: -41 T: 54 INTERPRETIVE STATEMENTS: Sinus bradycardia Left axis deviation RSR' or QR pattern in V1 suggests right ventricular conduction delay early repolo..Compared to ECG 05/20/2020 20:25:21 Left-axis deviation now present Electronically Signed On 05-24-20 08:49:35 CDT by Juan Luis Mahajan
== END 2020-05-23 14:53 | disposition home or self-care (01) ==
LOC: ER 11:09
DX: U07.1 COVID-19 (principal)
CPT/HCPCS: 80048; 36415; 85379; 84484; 71275; 71045; Q9967; 93005; 99284

== ENCOUNTER 2020-05-25 05:09 | Emergency (ER) | payer OTHER ==
--- NOTE | 2020-05-25 05:49 | EDPHYS ---
Physician Documentation [facility] Name: Alessandra Harp Jr Age: 20 yrs Sex: Male : 2000 Arrival Date: 05/25/2020 Time: 05:14 Bed 20 Private MD: ED Physician Radha Evans HPI: 05/25 05:46 This 20 yrs old Black Male presents to ER via Ambulatory with complaints of /Diarrhea. ma2 05:46 Onset: The symptoms/episode began/occurred gradually, 3 day(s) ago. Associated signs ma2 and symptoms: Pertinent negatives: belching, constipation, fever, flatulence. Severity of symptoms: At their worst the symptoms were mild in the emergency department the symptoms are unchanged. The patient has experienced similar episodes in the past. has covid here with diarrhea. Historical: - Allergies: 05:30 NKDA; em - PMHx: 05:30 ADD/ADHD; Asthma; Bipolar disorder; em - PSHx: 05:30 None; em - Immunization history:: Adult Immunizations up to date. - Social history:: Smoking status: Patient denies any tobacco usage or history of. Patient/guardian denies using alcohol, street drugs, The patient lives with family, with spouse. - Family history:: not pertinent. ROS: 05:46 Constitutional: Negative for fever, chills, and weight loss. ma2 05:46 All other systems are negative. Exam: 05:46 Constitutional: This is a well developed, well nourished patient who is awake, alert, ma2 and in no acute distress. Neck: Trachea midline, no thyromegaly or masses palpated, and no cervical lymphadenopathy. Supple, full range of motion without nuchal rigidity, or vertebral point tenderness. No Meningismus. Chest/axilla: Normal chest wall appearance and motion. Nontender with no deformity. No lesions are appreciated. Cardiovascular: Regular rate and rhythm with a normal S1 and S2. No gallops, murmurs, or rubs. Normal PMI, no JVD. No pulse deficits. Respiratory: Lungs have equal breath sounds bilaterally, clear to auscultation and percussion. No rales, rhonchi or wheezes noted. No increased work of breathing, no retractions or nasal flaring. Abdomen/GI: Soft, non-tender, with normal bowel sounds. No distension or tympany. No guarding or rebound. No evidence of tenderness throughout. Back: No spinal tenderness. No costovertebral tenderness. Full range of motion. MS/ Extremity: Pulses equal, no cyanosis. Neurovascular intact. Full, normal range of motion. Neuro: Awake and alert, GCS 15, oriented to person, place, time, and situation. Cranial nerves II-XII grossly intact. Motor strength 5/5 in all extremities. Sensory grossly intact. Cerebellar exam normal. Normal gait. Vital Signs: 05:37 BP 135 / 70; Pulse 56; Resp 18; Temp 97.7(O); Pulse Ox 100% on R/A; Weight 95.25 kg; em Height 6 ft. 2 in. (187.96 cm); Pain 8/10; 05:37 Body Mass Index 26.96 (95.25 kg, 187.96 cm) em MDM: 05:32 Patient medically screened. pr2 05:46 Differential diagnosis: gastritis, viral gastroenteritis, gastroenteritis, + covid. pr2 Data reviewed: vital signs, nurses notes. Counseling: I had a detailed discussion with the patient and/or guardian regarding: the historical points, exam findings, and any diagnostic results supporting the discharge/admit diagnosis, the presence of at least one elevated blood pressure reading (>120/80) during this emergency department visit, the need for outpatient follow up. Response to treatment: the patient's symptoms have markedly improved after treatment. 05/25 05:33 Order name: Basic Metabolic Panel [facility] 05/25 05:33 Order name: CBC with Diff [facility] 05/25 05:33 Order name: Hepatic Function [facility] 05/25 05:33 Order name: Lipase [facility] Administered Medications: 06:06 CANCELLED (Physician Discretion): NS 0.9% 1000 ml IV at 1 bolus Per protocol; 1000 mL jb4 bolus 06:07 CANCELLED (Physician Discretion): Zofran (Ondansetron) 4 mg IVP once; over 2 minutes jb4 Disposition: 05/25/20 05:48 Discharged to Home. Impression: Coronavirus infection, unspecified, Constipation, unspecified. - Condition is Stable. - Discharge Instructions: Constipation, Adult, COVID-19. - Prescriptions for Zofran 4 mg Oral Tablet - take 1 tablet by ORAL route every 12 hours As needed; 20 tablet. magnesium citrate - take 5 milligrams by ORAL route 2-4 times daily as needed for constipation; 1 bottle. Dulcolax 10 mg Rectal Suppository - insert 1 suppository by RECTAL route every 6 hours As needed; 10 suppository. - Medication Reconciliation Form, Thank You Letter, Antibiotic Education, Prescription Opioid Use form. - Follow up: Private Physician; When: Tomorrow; Reason: If symptoms return, Continuance of care. Signatures: [facility]patcher [facility] Bradley Cortez RN RN Joel Salazar RN RN jb4 Radha Evans MD MD [facility] Corrections: (The following items were deleted from the chart) 06:02 05:48 05/25/2020 05:48 Discharged to Home. Impression: Coronavirus infection, ma2 unspecified; Diarrhea, unspecified. Condition is Stable. Prescriptions for Zofran 4 mg Oral Tablet - take 1 tablet by ORAL route every 12 hours As needed; 20 tablet. and Forms are Medication Reconciliation Form, Thank You Letter, Antibiotic Education, Prescription Opioid Use. Follow up: Private Physician; When: Tomorrow; Reason: If symptoms return, Continuance of care. [facility] 06:06 05:33 NS 0.9% 1000 ml IV at 1 bolus Per protocol; 1000 mL bolus ordered. [place] [id number] 06:07 05:33 IV Saline Lock ordered. [place] [id number] 06:07 05:33 Labs collected and sent ordered. [place] [id number] 06:07 05:33 Zofran (Ondansetron) 4 mg IVP once; over 2 minutes ordered. [place] [id number] 06:08 05:33 Basic Metabolic Panel ordered. [facility] 06:08 05:33 CBC with Automated Diff ordered. [facility] 06:08 05:34 Liver (Hepatic) Function ordered. [facility] 06:08 05:34 Lipase ordered. [facility] 06:10 06:02 05/25/2020 05:48 Discharged to Home. Impression: Coronavirus infection, jb4 unspecified; Constipation, unspecified. Condition is Stable. Discharge Instructions: COVID-19, Constipation, Adult. Prescriptions for Zofran 4 mg Oral Tablet - take 1 tablet by ORAL route every 12 hours As needed; 20 tablet, magnesium citrate - take 5 milligrams by ORAL route 2-4 times daily as needed for constipation; 1 bottle, Dulcolax 10 mg Rectal Suppository - insert 1 suppository by RECTAL route every 6 hours As needed; 10 suppository. and Forms are Medication Reconciliation Form, Thank You Letter, Antibiotic Education, Prescription Opioid Use. Follow up: Private Physician; When: Tomorrow; Reason: If symptoms return, Continuance of care. ma2
--- NOTE | 2020-05-25 05:49 | ER ---
Nurse's Notes [facility] Name: Alessandra Harp Jr Age: 20 yrs Sex: Male : 2000 Arrival Date: 05/25/2020 Time: 05:14 Bed 20 Private MD: Diagnosis: Coronavirus infection, unspecified;Constipation, unspecified Presentation: 05/25 05:37 Chief complaint: Patient states: abdominal pain, nausea and constipation since em yesterday, reports 1 episode of diarrhea yesterday, was diagnosed with covid 05/20/20, denies shortness of breath. Coronavirus screen: Client denies travel out of the [place] in the last 14 days. Ebola Screen: Patient negative for fever greater than or equal to 101.5 degrees Fahrenheit, and additional compatible Ebola Virus Disease symptoms Patient denies exposure to infectious person. Patient denies travel to an Ebola-affected area in the 21 days before illness onset. No symptoms or risks identified at this time. Initial Sepsis Screen: Does the patient meet any 2 criteria? No. Patient's initial sepsis screen is negative. Does the patient have a suspected source of infection? No. Patient's initial sepsis screen is negative. Risk Assessment: Do you want to hurt yourself or someone else? Patient reports no desire to harm self or others. Onset of symptoms was May 25, 2020. 05:37 Method Of Arrival: Ambulatory em 05:37 Acuity: SIVA 3 em Historical: - Allergies: 05:30 NKDA; em - PMHx: 05:30 ADD/ADHD; Asthma; Bipolar disorder; em - PSHx: 05:30 None; em - Immunization history:: Adult Immunizations up to date. - Social history:: Smoking status: Patient denies any tobacco usage or history of. Patient/guardian denies using alcohol, street drugs, The patient lives with family, with spouse. - Family history:: not pertinent. Screenin:07 Abuse screen: Denies threats or abuse. Nutritional screening: No deficits noted. jb4 Tuberculosis screening: No symptoms or risk factors identified. Fall Risk None identified. Assessment: 06:07 General: Appears in no apparent distress. comfortable, Behavior is calm, cooperative, jb4 appropriate for age. Pain: Complains of pain in abdomen Pain does not radiate. Pain currently is 8 out of 10 on a pain scale. Neuro: Level of Consciousness is awake, alert, obeys commands, Oriented to person, place, time, situation. Cardiovascular: Patient's skin is warm and dry. Respiratory: Airway is patent Respiratory effort is even, unlabored, Respiratory pattern is regular, symmetrical. GI: Abdomen is flat, Reports constipation, nausea. : No signs and/or symptoms were reported regarding the genitourinary system. EENT: No signs and/or symptoms were reported regarding the EENT system. Derm: Skin is intact, Skin is dry, Skin is normal, Skin temperature is warm. Musculoskeletal: Circulation, motion, and sensation intact. Range of motion: intact in all extremities. Vital Signs: 05:37 BP 135 / 70; Pulse 56; Resp 18; Temp 97.7(O); Pulse Ox 100% on R/A; Weight 95.25 kg; em Height 6 ft. 2 in. (187.96 cm); Pain 8/10; 05:37 Body Mass Index 26.96 (95.25 kg, 187.96 cm) em ED Course: 05:14 Patient arrived in ED. bp1 05:30 Arm band placed on. em 05:32 Radha Evans MD is Attending Physician. ma2 05:39 Triage completed. em 06:07 Patient has correct armband on for positive identification. Bed in low position. Call jb4 light in reach. Side rails up X 1. Pulse ox on. NIBP on. 06:07 No provider procedures requiring assistance completed. Patient did not have IV access jb4 during this emergency room visit. Administered Medications: 06:06 CANCELLED (Physician Discretion): NS 0.9% 1000 ml IV at 1 bolus Per protocol; 1000 mL jb4 bolus 06:07 CANCELLED (Physician Discretion): Zofran (Ondansetron) 4 mg IVP once; over 2 minutes jb4 Outcome: 05:48 Discharge ordered by . ma2 06:07 Discharged to home ambulatory. jb4 06:07 Condition: stable 06:07 Discharge instructions given to patient, Instructed on discharge instructions, follow up and referral plans. medication usage, Demonstrated understanding of instructions, follow-up care, medications, Prescriptions given X 3. 06:10 Patient left the ED. jb4 Signatures: Bradley Cortez RN RN Joel Cheatham RN RN jb4 Radha Evans MD MD ma2 Jose, Flori bp1
[2020-05-25 12:56] VITALS: BP 135/70; TEMP 97.7; O2SAT 100
== END 2020-05-25 06:10 | disposition home or self-care (01) ==
LOC: ER 05:09
DX: U07.1 COVID-19 (principal); K59.00 Constipation, unspecified
CPT/HCPCS: 99283

== ENCOUNTER 2020-05-26 15:49 | Emergency (ER) | payer OTHER ==
--- NOTE | 2020-05-26 16:50 | ER ---
Nurse's Notes [facility] Name: Alessandra Harp Jr Age: 20 yrs Sex: Male : 2000 Arrival Date: 05/26/2020 Time: 15:58 Bed 6 Private MD: Diagnosis: Coronavirus infection, unspecified Presentation: 05/26 15:59 Chief complaint: Patient states: difficulty breathing that has been ongoing for a few ss days. Pt recently diagnosed here with COVID. O2 saturation on RA is 100%. Pt states, "it just feel like I can't get a good breath.". Coronavirus screen: Client presents with at least one sign or symptom that may indicate coronavirus-19. Standard/surgical mask placed on the client. Provider contacted for isolation considerations. Ebola Screen: Patient denies exposure to infectious person. Patient denies travel to an Ebola-affected area in the 21 days before illness onset. Initial Sepsis Screen: Does the patient meet any 2 criteria? No. Patient's initial sepsis screen is negative. Does the patient have a suspected source of infection? No. Patient's initial sepsis screen is negative. Risk Assessment: Do you want to hurt yourself or someone else? Patient reports no desire to harm self or others. Onset of symptoms was May 22, 2020. 15:59 Method Of Arrival: EMS: [facility] ss 15:59 Acuity: SIVA 4 ss Historical: - Allergies: 16:02 NKDA; ss - PMHx: 16:02 ADD/ADHD; Asthma; Bipolar disorder; ss - PSHx: 16:02 None; ss Vital Signs: 15:59 Resp 20; Temp 97.7(O); Pulse Ox 100% on R/A; ss ED Course: 15:58 Patient arrived in ED. ss 16:02 Triage completed. ss 16:02 Arm band placed on right wrist. ss 16:03 Joey Manriquez MD is Attending Physician. rn 16:03 Zachery Cuenca NP is PHCP. pm1 16:59 No provider procedures requiring assistance completed. Patient did not have IV access hb during this emergency room visit. Administered Medications: 16:45 CANCELLED (Physician Discretion): Albuterol 2.5 mg Inhalation once sv 16:45 Drug: Albuterol HFA Inhaler 2 puffs Route: Inhalation; sv Outcome: 16:50 Discharge ordered by . pm1 16:59 Discharged to home ambulatory. 16:59 Condition: stable 16:59 Discharge instructions given to patient, Instructed on discharge instructions, follow up and referral plans. medication usage, Demonstrated understanding of instructions, follow-up care, medications. 16:59 Patient left the ED. hb Signatures: Vanna Jain RN RN Joey Manriquez MD MD rn Smirch, Shelby, RN RN ss Marinas, Patrick, MANIFOLD OPERATOR MANIFOLD OPERATOR pm1 Alissa Stone RN RN hb
--- NOTE | 2020-05-26 16:50 | EDPHYS ---
Physician Documentation [facility] Name: Alessandra Harp Jr Age: 20 yrs Sex: Male : 2000 Arrival Date: 05/26/2020 Time: 15:58 Bed 6 Private MD: ED Physician Joey Manriquez HPI: 05/26 16:48 This 20 yrs old Black Male presents to ER via EMS with complaints of Shortness Of pm1 Breath. 16:48 The patient has shortness of breath at rest. Onset: The symptoms/episode began/occurred pm1 this morning. Duration: The symptoms are continuous. The patient's shortness of breath is aggravated by anxiety, is alleviated by nothing. Associated signs and symptoms: Pertinent positives: non-productive cough, Pertinent negatives: chest pain, fever. Severity of symptoms: in the emergency department the symptoms are unchanged Pain is currently a 0 / 10. The patient has been recently seen at the [facility] Emergency Department, yesterday. Historical: - Allergies: 16:02 NKDA; ss - PMHx: 16:02 ADD/ADHD; Asthma; Bipolar disorder; ss - PSHx: 16:02 None; ss ROS: 16:48 Constitutional: Negative for fever, chills, and weight loss, ENT: Negative for injury, pm1 pain, and discharge, Neck: Negative for injury, pain, and swelling, Cardiovascular: Negative for chest pain, palpitations, and edema. 16:48 Abdomen/GI: Negative for abdominal pain, nausea, vomiting, diarrhea, and constipation, Back: Negative for injury and pain, MS/Extremity: Negative for injury and deformity, Skin: Negative for injury, rash, and discoloration, Neuro: Negative for headache, weakness, numbness, tingling, and seizure. 16:48 Respiratory: Positive for cough, shortness of breath. Exam: 16:48 Constitutional: This is a well developed, well nourished patient who is awake, alert, pm1 and in no acute distress. Head/Face: Normocephalic, atraumatic. Chest/axilla: Normal chest wall appearance and motion. Nontender with no deformity. No lesions are appreciated. 16:48 Back: No spinal tenderness. No costovertebral tenderness. Full range of motion. Skin: Warm, dry with normal turgor. Normal color with no rashes, no lesions, and no evidence of cellulitis. MS/ Extremity: Pulses equal, no cyanosis. Neurovascular intact. Full, normal range of motion. 16:48 Cardiovascular: Exam negative for acute changes, Rate: normal, Rhythm: regular, Pulses: no pulse deficits are appreciated, Edema: is not appreciated. 16:48 Respiratory: Exam negative for acute changes, respiratory distress, shortness of breath, Breath sounds: are clear throughout, no bronchial sounds, no decreased breath sounds, no rales, rhonchi, no wheezing. 16:48 Neuro: Exam negative for acute changes, Orientation: is normal, Mentation: is normal, Motor: is normal, moves all fours. Vital Signs: 15:59 Resp 20; Temp 97.7(O); Pulse Ox 100% on R/A; ss MDM: 16:28 Data reviewed: vital signs. Data interpreted: Pulse oximetry: on room air is 100 %. pm1 Interpretation: normal. 16:48 Counseling: I had a detailed discussion with the patient and/or guardian regarding: the pm1 historical points, exam findings, and any diagnostic results supporting the discharge/admit diagnosis, the need for outpatient follow up, to return to the emergency department if symptoms worsen or persist or if there are any questions or concerns that arise at home. 16:48 ED course: Patient has normal vital signs, breath sounds clear and does not appear in pm1 any distress. O2 saturation is 100%. This is that patient's 4th ER visit since covid diagnosis 6 days ago. Patient agrees with plan of care to give him a breathing treatment and then he can be discharged to follow up and return if he gets worse. 16:50 Patient medically screened. pm1 Administered Medications: 16:45 CANCELLED (Physician Discretion): Albuterol 2.5 mg Inhalation once sv 16:45 Drug: Albuterol HFA Inhaler 2 puffs Route: Inhalation; sv Disposition: 18:01 Co-signature as Attending Physician, Joey Manriquez MD. rn Disposition: 05/26/20 16:50 Discharged to Home. Impression: Coronavirus infection, unspecified. - Condition is Stable. - Discharge Instructions: COVID-19. - Medication Reconciliation Form, Thank You Letter, Antibiotic Education, Prescription Opioid Use form. - Follow up: Emergency Department; When: As needed; Reason: Worsening of condition. Follow up: Private Physician; When: 2 - 3 days; Reason: Recheck today's complaints, Continuance of care, Re-evaluation by your physician. - Problem is new. - Symptoms have improved. Signatures: Vanna Jain RN RN Joey Manriquez MD MD rn Smirch, Shelby, RN RN ss Zachery Cuenca, PRICE LISTER PRICE LISTER pm1 Alissa Stone RN RN hb Corrections: (The following items were deleted from the chart) 16:45 16:27 Albuterol 2.5 mg Inhalation once ordered. pm1 16:59 16:50 05/26/2020 16:50 Discharged to Home. Impression: Coronavirus infection, hb unspecified. Condition is Stable. Forms are Medication Reconciliation Form, Thank You Letter, Antibiotic Education, Prescription Opioid Use. Follow up: Emergency Department; When: As needed; Reason: Worsening of condition. Follow up: Private Physician; When: 2 - 3 days; Reason: Recheck today's complaints, Continuance of care, Re-evaluation by your physician. Problem is new. Symptoms have improved. pm1
[2020-05-26] MEDS ORDERED: ALBUTEROL INHALER 60 PUFF/8 GM IH ONE (17:01)
== END 2020-05-26 16:59 | disposition home or self-care (01) ==
LOC: ER 15:49
DX: U07.1 COVID-19 (principal); F31.9 Bipolar disorder, unspecified; F90.9 Attention-deficit hyperactivity disorder, unspecified type; J45.909 Unspecified asthma, uncomplicated
CPT/HCPCS: 99284

== ENCOUNTER 2020-06-27 22:41 | Emergency (ER) | payer OTHER ==
[2020-06-27 23:01] LABS: Urine Blood Negative (Negative); Urine Glucose Negative (Negative); Urine Protein Negative (Negative)
--- NOTE | 2020-06-27 23:49 | EDPHYS ---
Physician Documentation [facility] Name: Alessandra Harp Jr Age: 20 yrs Sex: Male : 2000 Arrival Date: 06/27/2020 Time: 22:44 Bed 20 Private MD: ED Physician Joey Manriquez HPI: 06/28 00:12 This 20 yrs old Black Male presents to ER via Ambulatory with complaints of Urinary kb Frequency, Flank Pain. 00:12 The patient presents with urinary symptoms, frequency, small amounts. Onset: The kb symptoms/episode began/occurred 7 day(s) ago. Modifying factors: The symptoms are alleviated by nothing, the symptoms are aggravated by urinating. Associated signs and symptoms: Pertinent positives: abdominal pain, Pertinent negatives: constipation, diarrhea, dysuria, fever, hematuria, nausea, vomiting. The patient has not experienced similar symptoms in the past. The patient has not recently seen a physician. 00:13 Severity of symptoms: At their worst the symptoms were mild, moderate, in the emergency kb department the symptoms are unchanged. Historical: - Allergies: 06/27 22:49 NKDA; ca1 - PMHx: 22:49 ADD/ADHD; Asthma; Bipolar disorder; ca1 - PSHx: 22:49 None; ca1 - Immunization history:: Adult Immunizations up to date. - Social history:: Smoking status: Smoking status: unknown. ROS: 06/28 00:09 Constitutional: Negative for fever, chills, and weight loss, MS/Extremity: Negative for kb injury and deformity, Skin: Negative for injury, rash, and discoloration, Neuro: Negative for headache, weakness, numbness, tingling, and seizure. Abdomen/GI: Positive for abdominal pain, of the suprapubic area. : Positive for urinary frequency, small amounts. 00:11 All other systems are negative. kb Exam: 00:11 Constitutional: This is a well developed, well nourished patient who is awake, alert, kb and in no acute distress. Head/Face: Normocephalic, atraumatic. ENT: Moist Mucous membranes Cardiovascular: Regular rate and rhythm with a normal S1 and S2. No gallops, murmurs, or rubs. No pulse deficits. Respiratory: Respirations even and unlabored. No increased work of breathing, no retractions or nasal flaring. Back: No spinal tenderness. No costovertebral tenderness. Full range of motion. Skin: Warm, dry with normal turgor. Normal color. MS/ Extremity: Pulses equal, no cyanosis. Neurovascular intact. Full, normal range of motion. Neuro: Awake and alert, GCS 15, oriented to person, place, time, and situation. Moves all extremities. Normal gait. Psych: Awake, alert, with orientation to person, place and time. Behavior, mood, and affect are within normal limits. 00:11 Abdomen/GI: Inspection: abdomen appears normal, Bowel sounds: normal, Palpation: soft, in all quadrants, mild abdominal tenderness, in the suprapubic area. Vital Signs: 06/27 22:49 Weight 89.81 kg (R); Height 6 ft. 0 in. (182.88 cm) (R); Pain 0/10; ca1 22:49 Pulse 55; Resp 16 S; Temp 98(TE); Pulse Ox 99% on R/A; ca1 22:49 BP 135 / 70; ca1 22:49 Body Mass Index 26.85 (89.81 kg, 182.88 cm) ca1 MDM: 22:53 Patient medically screened. kb 06/28 00:09 Data reviewed: vital signs, nurses notes. Data interpreted: Pulse oximetry: on room air kb is 99 %. Interpretation: normal. Counseling: I had a detailed discussion with the patient and/or guardian regarding: the historical points, exam findings, and any diagnostic results supporting the discharge/admit diagnosis, lab results, radiology results, the need for outpatient follow up, a family practitioner, to return to the emergency department if symptoms worsen or persist or if there are any questions or concerns that arise at home. 06/27 22:51 Order name: Urine Microscopic Only; Complete Time: 00:20 kb 06/27 23:00 Order name: Urine Dipstick-Ancillary; Complete Time: 23:01 EDMS 06/27 22:51 Order name: Urine Dipstick-Ancillary (obtain specimen); Complete Time: 23:01 kb 06/27 23:02 Order name: CT Stone Protocol kb Administered Medications: 00:32 Drug: Doxycycline 100 mg Route: PO; jm8 00:39 Follow up: Response: No adverse reaction; Medication administered at discharge. jm8 Disposition: 00:38 Co-signature as Attending Physician, Joey Manriquez MD. rn Disposition: 06/27/20 23:49 Discharged to Home. Impression: Cystitis. - Condition is Stable. - Discharge Instructions: Urinary Tract Infection, Adult, [id number]. - Prescriptions for Doxycycline Hyclate 100 mg Oral Tablet - take 1 tablet by ORAL route every 12 hours; 20 tablet. - Medication Reconciliation Form, Thank You Letter, Antibiotic Education, Prescription Opioid Use form. - Follow up: Private Physician; When: 2 - 3 days; Reason: Recheck today's complaints, Continuance of care, Re-evaluation by your physician. Follow up: Emergency Department; When: As needed; Reason: Worsening of condition. Signatures: Dispatcher [employer] EDMS Kaya Gonzalez, WAFER MOUNTER-C WAFER MOUNTER-Ckb Joey Manriquez MD MD rn Nellie, Niharika, RN Lobo Zapata RN RN jm8 Corrections: (The following items were deleted from the chart) 00:13 00:12 Associated signs and symptoms: Pertinent positives: kb kb 00:37 06/27 23:49 06/27/2020 23:49 Discharged to Home. Impression: Cystitis. Condition is jm8 Stable. Forms are Medication Reconciliation Form, Thank You Letter, Antibiotic Education, Prescription Opioid Use. Follow up: Private Physician; When: 2 - 3 days; Reason: Recheck today's complaints, Continuance of care, Re-evaluation by your physician. Follow up: Emergency Department; When: As needed; Reason: Worsening of condition. kb
--- NOTE | 2020-06-27 23:49 | ER ---
Nurse's Notes [facility] Name: Alessandra Harp Jr Age: 20 yrs Sex: Male : 2000 Arrival Date: 06/27/2020 Time: 22:44 Bed 20 Private MD: Diagnosis: Cystitis Presentation: 06/27 22:46 Chief complaint: Patient states: Urinary urgency and frequency, R side pain. I urinate ca1 for like 2 - 3 seconds only. 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 Denies burning with urination. Coronavirus screen: Client denies travel out of the [place] in the last 14 days. At this time, the client does not indicate any symptoms associated with coronavirus-19. Ebola Screen: Patient negative for fever greater than or equal to 101.5 degrees Fahrenheit, and additional compatible Ebola Virus Disease symptoms Patient denies exposure to infectious person. Patient denies travel to an Ebola-affected area in the 21 days before illness onset. No symptoms or risks identified at this time. Initial Sepsis Screen: Does the patient meet any 2 criteria? No. Patient's initial sepsis screen is negative. Does the patient have a suspected source of infection? No. Patient's initial sepsis screen is negative. Risk Assessment: Do you want to hurt yourself or someone else? Patient reports no desire to harm self or others. Onset of symptoms was June 27, 2020. 22:46 Method Of Arrival: Ambulatory ca1 22:46 Method Of Arrival: Ambulatory ca1 22:46 Acuity: SIVA 3 ca1 Historical: - Allergies: 22:49 NKDA; ca1 - PMHx: 22:49 ADD/ADHD; Asthma; Bipolar disorder; ca1 - PSHx: 22:49 None; ca1 - Immunization history:: Adult Immunizations up to date. - Social history:: Smoking status: Smoking status: unknown. Screenin:31 Abuse screen: Denies threats or abuse. Denies injuries from another. Nutritional jm8 screening: No deficits noted. Tuberculosis screening: No symptoms or risk factors identified. Fall Risk None identified. Assessment: 23:29 General: Appears in no apparent distress. comfortable, Behavior is calm, cooperative, jm8 appropriate for age. Pain: Denies pain. Neuro: No deficits noted. Neuro: Level of Consciousness is awake, alert, obeys commands, Oriented to person, place, time. Cardiovascular: No deficits noted. Respiratory: No deficits noted. Airway is patent Trachea midline Respiratory effort is even, unlabored, Respiratory pattern is regular. GI: No deficits noted. No signs and/or symptoms were reported involving the gastrointestinal system. : Reports urinary frequency, since last week. EENT: No deficits noted. No signs and/or symptoms were reported regarding the EENT system. Derm: No deficits noted. No signs and/or symptoms reported regarding the dermatologic system. Musculoskeletal: No deficits noted. No signs and/or symptoms reported regarding the musculoskeletal system. Vital Signs: 22:49 Weight 89.81 kg (R); Height 6 ft. 0 in. (182.88 cm) (R); Pain 0/10; ca1 22:49 Pulse 55; Resp 16 S; Temp 98(TE); Pulse Ox 99% on R/A; ca1 22:49 BP 135 / 70; ca1 22:49 Body Mass Index 26.85 (89.81 kg, 182.88 cm) ca1 ED Course: 22:44 Patient arrived in ED. bp1 22:46 [facility]C [facility] kb 22:46 Joey Manriquez MD is Attending Physician. kb 22:48 Triage completed. ca1 22:49 Arm band placed on right wrist. ca1 23:25 CT Stone Protocol In Process Unspecified. EDMS 23:31 Patient has correct armband on for positive identification. Bed in low position. Call jm8 light in reach. Side rails up X2. 05 00:36 No provider procedures requiring assistance completed. Patient did not have IV access jm8 during this emergency room visit. Administered Medications: 00:32 Drug: Doxycycline 100 mg Route: PO; jm8 00:39 Follow up: Response: No adverse reaction; Medication administered at discharge. jm8 Outcome: 06/27 23:49 Discharge ordered by . kb 06/28 00:36 Discharged to home ambulatory. jm8 Condition: good Discharge instructions given to patient, Instructed on discharge instructions, follow up and referral plans. medication usage, Demonstrated understanding of instructions, follow-up care, medications, Prescriptions given X 1. 00:37 Patient left the ED. jm8 Signatures: Dispatcher [employer] EDMS Kaya Gonzalez FNP-C FNP-Ckb Acob, Cheryl, RN RN ca1 Flori Garcia Joseph, RN RN jm8
[2020-06-28 00:19] LABS: Urine Bacteria <20 /HPF (NONE SEEN); Urine RBC <5 /HPF (NONE SEEN)
[2020-06-28 00:42] VITALS: BP 135/70; TEMP 98; O2SAT 99
[2020-06-28] MEDS ORDERED: DOXYCYCLINE 100 MG CAP PO ONE (00:51)
--- NOTE | 2020-06-28 10:50 | RAD REPORT ---
EXAM DESCRIPTION: CT - Stone Protocol - 06/28/2020 6:28 am CLINICAL HISTORY: Urinary frequency and small amounts COMPARISON: None Available. TECHNIQUE: CT of the abdomen and pelvis without IV contrast. Evaluation of the solid organs and vasc ulature is suboptimal due to lack of IV contrast. This exam was performed according to our department al dose-optimization program, which includes automated exposure control, adjustment of the mA and/or kV according to patient size and/or use of iterative reconstruction technique. FINDINGS: Lung Bases: The visualized lung bases are clear. Bones: No destructive bone lesions identified. Abdomen: Liver: The liver has normal size and density. Gallbladder: No calcified gallstones. Spleen, Pancreas, and Adrenal Glands: The spleen, pancreas, and adrenal glands are unremarkable. Kidneys: The kidneys have normal size without evidence of hydronephrosis. No obstructing ureteral mimi culi. Vasculature: The aorta and IVC have normal caliber and position. Stomach: The stomach and duodenum have normal course. Other: No free intraperitoneal air. No free fluid or lymphadenopathy. Pelvis: Bladder: Wall thickening of the urinary bladder which is decompressed Bowel: No dilated loops of large or small bowel. Scattered diverticula of colon, predominantly the cecum. Appendix: Normal appendix. Pelvis: Uterus is not enlarged. IMPRESSION: 1. Wall thickening of the urinary bladder which is decompressed. This may be related t o cystitis or under distention. 2. Diverticulosis without evidence of acute diverticulitis. Electronically signed by: Woody Matson 06/27/2020 11:37 PM CDT Due to temporary technical issues with the PACS/Fluency reporting system, reports are being signed by the in house radiologist without review as a courtesy to ensure prompt reporting. The interpreting r adiologist is fully responsible for the content of the report.
== END 2020-06-28 00:37 | disposition home or self-care (01) ==
LOC: ER 22:41
DX: N30.90 Cystitis, unspecified without hematuria (principal)
CPT/HCPCS: 74176; 76377; 81003; 81015; 99283

== ENCOUNTER 2020-08-09 23:12 | Emergency (ER) | payer OTHER ==
[2020-08-10 01:06] LABS: Absolute Lymphocytes (CBC) 3.1 K/uL (0.7-4.9); Basophils % 1.2 % (0-1.3); Hematocrit 49.1 % (39.6-49.0); Lymphocytes % 40.4 % (15.3-44.8); MPV 8.9 fL (7.6-11.3)
[2020-08-10 01:21] LABS: ALT/SGPT 28 U/L (12-78); AST/SGOT 18 U/L (15-37); Albumin 3.9 g/dL (3.4-5.0); Alkaline Phosphatase 84 U/L (45-117); BUN Blood Urea Nitrogen 12 mg/dL (7-18); Bicarbonate 31 mmol/L (21-32); Bilirubin Direct < 0.1 mg/dL (0-0.2); Bilirubin Total 0.4 mg/dL (0.2-1.0); Glucose Level 89 mg/dL (74-106); Lipase 50 U/L (73-393); Protein, Total 7.7 g/dL (6.4-8.2); Sodium Level 139 mmol/L (136-145)
[2020-08-10] MEDS ORDERED: NA CHLORIDE 0.9% 1,000 ML ONE (01:51)
--- NOTE | 2020-08-10 02:50 | EDPHYS ---
Physician Documentation [facility] Name: Alessandra Harp Jr Age: 20 yrs Sex: Male : 2000 Arrival Date: 08/09/2020 Time: 23:17 Bed 19 Private MD: ED Physician Donald Molina HPI: 08/10 02:43 This 20 yrs old Black Male presents to ER via Ambulatory with complaints of Bloody cedric Stools. 02:43 The patient presents with abdominal pain in the upper abdomen, in the lower abdomen. cedric Onset: The symptoms/episode began/occurred 3 day(s) ago. The symptoms do not radiate. Associated signs and symptoms: Pertinent positives: blood in stools. The symptoms are described as crampy. Modifying factors: The symptoms are alleviated by nothing, the symptoms are aggravated by nothing. Severity of pain: At its worst the pain was mild in the emergency department the pain is unchanged. The patient has not experienced similar symptoms in the past. Historical: - Allergies: 08/09 23:36 NKDA; ca1 - PMHx: 23:36 ADD/ADHD; Asthma; Bipolar disorder; ca1 - PSHx: 23:36 None; ca1 - Immunization history:: Adult Immunizations up to date. - Social history:: Smoking status: Patient denies any tobacco usage or history of. - Family history:: not pertinent. ROS: 08/10 02:43 Constitutional: Negative for fever, chills, and weight loss, Eyes: Negative for injury, cedric pain, redness, and discharge, ENT: Negative for injury, pain, and discharge, Neck: Negative for injury, pain, and swelling, Cardiovascular: Negative for chest pain, palpitations, and edema, Respiratory: Negative for shortness of breath, cough, wheezing, and pleuritic chest pain, Back: Negative for injury and pain, : Negative for injury, bleeding, discharge, and swelling, MS/Extremity: Negative for injury and deformity, Skin: Negative for injury, rash, and discoloration, Neuro: Negative for headache, weakness, numbness, tingling, and seizure, Psych: Negative for depression, anxiety, suicide ideation, homicidal ideation, and hallucinations, Allergy/Immunology: Negative for hives, rash, and allergies, Endocrine: Negative for neck swelling, polydipsia, polyuria, polyphagia, and marked weight changes, Hematologic/Lymphatic: Negative for swollen nodes, abnormal bleeding, and unusual bruising. Abdomen/GI: Positive for rectal bleeding. Exam: 02:43 Constitutional: This is a well developed, well nourished patient who is awake, alert, cedric and in no acute distress. Head/Face: Normocephalic, atraumatic. Eyes: Pupils equal round and reactive to light, extra-ocular motions intact. Lids and lashes normal. Conjunctiva and sclera are non-icteric and not injected. Cornea within normal limits. Periorbital areas with no swelling, redness, or edema. ENT: Nares patent. No nasal discharge, no septal abnormalities noted. Tympanic membranes are normal and external auditory canals are clear. Oropharynx with no redness, swelling, or masses, exudates, or evidence of obstruction, uvula midline. Mucous membranes moist. Neck: Trachea midline, no thyromegaly or masses palpated, and no cervical lymphadenopathy. Supple, full range of motion without nuchal rigidity, or vertebral point tenderness. No Meningismus. Chest/axilla: Normal chest wall appearance and motion. Nontender with no deformity. No lesions are appreciated. Cardiovascular: Regular rate and rhythm with a normal S1 and S2. No gallops, murmurs, or rubs. Normal PMI, no JVD. No pulse deficits. Respiratory: Lungs have equal breath sounds bilaterally, clear to auscultation and percussion. No rales, rhonchi or wheezes noted. No increased work of breathing, no retractions or nasal flaring. Abdomen/GI: Soft, non-tender, with normal bowel sounds. No distension or tympany. No guarding or rebound. No evidence of tenderness throughout. Back: No spinal tenderness. No costovertebral tenderness. Full range of motion. Male : Normal genitalia with no discharge or lesions. Skin: Warm, dry with normal turgor. Normal color with no rashes, no lesions, and no evidence of cellulitis. MS/ Extremity: Pulses equal, no cyanosis. Neurovascular intact. Full, normal range of motion. Neuro: Awake and alert, GCS 15, oriented to person, place, time, and situation. Cranial nerves II-XII grossly intact. Motor strength 5/5 in all extremities. Sensory grossly intact. Cerebellar exam normal. Normal gait. Psych: Awake, alert, with orientation to person, place and time. Behavior, mood, and affect are within normal limits. 02:43 Abdomen/GI: Rectal exam: is unremarkable, Prostate: normal, rectal tone normal, Stool: guaiac negative, hemorrhoid(s), are not appreciated, mass, is not appreciated, swelling, is not appreciated, tenderness, is not appreciated, fecal impaction, is not appreciated, Liver: no appreciated palpable abnormalities, Hernia: not appreciated. Vital Signs: 08/09 23:34 BP 144 / 83; Pulse 52; Resp 18; Temp 97.8; Pulse Ox 98% on R/A; Weight 90.72 kg; Height em 5 ft. 11 in. (180.34 cm); Pain 0/10; 23:34 Body Mass Index 27.89 (90.72 kg, 180.34 cm) em MDM: 08/10 00:57 Patient medically screened. [facility] 02:45 Differential diagnosis: Cholelithiasis, diverticulitis, gastritis, GI Bleed, cedric non-specific abd pain, pancreatitis, Pyelonephritis. Data reviewed: vital signs, nurses notes, lab test result(s), EKG, radiologic studies, CT scan, plain films. Data interpreted: teletypesetter monitor: rate is 52 beats/min, rhythm is regular, Pulse oximetry: on room air is 98 %. Test interpretation: by ED physician or midlevel provider: plain radiologic studies. Counseling: I had a detailed discussion with the patient and/or guardian regarding: the historical points, exam findings, and any diagnostic results supporting the discharge/admit diagnosis, lab results, radiology results, the need for outpatient follow up, for definitive care, a family practitioner, a laboratory apparatus glass grinder. 08/10 00:40 Order name: Basic Metabolic Panel; Complete Time: 02:38 em 08/10 00:40 Order name: CBC with Diff; Complete Time: 02:19 em 08/10 00:40 Order name: Hepatic Function; Complete Time: 02:38 em 08/10 00:40 Order name: Lipase; Complete Time: 02:38 em 08/10 01:14 Order name: Abdomen 1 View (KUB) XRAY [facility] 08/10 00:40 Order name: IV Saline Lock; Complete Time: 00:55 em 08/10 00:40 Order name: Labs collected and sent; Complete Time: 00:55 em Administered Medications: 01:36 Drug: NS 0.9% 1000 ml Route: IV; Rate: 1 bolus; Site: right antecubital; em 02:45 Follow up: Response: No adverse reaction; IV Status: Completed infusion; IV Intake: jb4 1000ml 03:04 Drug: Cipro (ciprofloxacin) 500 mg Route: PO; jb4 03:04 Follow up: Response: Medication administered at discharge. jb4 Disposition: 08/10/20 02:50 Discharged to Home. Impression: Gastrointestinal hemorrhage, unspecified - lower, stable, Bipolar disorder. - Condition is Stable. - Discharge Instructions: Gastrointestinal Bleeding, Bipolar Disorder, Rectal Bleeding. - Prescriptions for Colace 100 mg Oral Tablet - take 1 tablet by ORAL route every 12 hours; 14 tablet. Cipro 500 mg Oral Tablet - take 1 tablet by ORAL route every 12 hours for 5 days; 10 tablet. - Medication Reconciliation Form, Thank You Letter, Antibiotic Education, Prescription Opioid Use form. - Follow up: Private Physician; When: 1 - 2 days; Reason: Recheck today's complaints, Continuance of care, Re-evaluation by your physician. Follow up: Shilpa Elder MD; When: 2 - 3 days; Reason: Recheck today's complaints, Re-evaluation by your physician. - Problem is new. - Symptoms have improved. Signatures: Dispatcher [employer] Donald Christie MD MD cha Munoz, Edgar, RN RN em Fabien Bo, AED TRAINER-C AED TRAINER-Cla1 Joel Cheatham RN RN jb4 Niharika Ballard RN RN ca1 Corrections: (The following items were deleted from the chart) 03:05 02:50 08/10/2020 02:50 Discharged to Home. Impression: Gastrointestinal hemorrhage, jb4 unspecified - lower, stable; Bipolar disorder. Condition is Stable. Forms are Medication Reconciliation Form, Thank You Letter, Antibiotic Education, Prescription Opioid Use. Follow up: Private Physician; When: 1 - 2 days; Reason: Recheck today's complaints, Continuance of care, Re-evaluation by your physician. Follow up: Shilpa Elder; When: 2 - 3 days; Reason: Recheck today's complaints, Re-evaluation by your physician. Problem is new. Symptoms have improved. cedric
--- NOTE | 2020-08-10 02:50 | ER ---
Nurse's Notes [facility] Name: Alessandra Harp Jr Age: 20 yrs Sex: Male : 2000 Arrival Date: 08/09/2020 Time: 23:17 Bed 19 Private MD: Diagnosis: Gastrointestinal hemorrhage, unspecified-lower, stable;Bipolar disorder Presentation: 08/09 23:34 Chief complaint: Patient states: had 3 bloody BM today, but off and on for several ca1 months, also reports RLQ pain, denies N/V/D or fever. Coronavirus screen: Client denies travel out of the [place] in the last 14 days. Ebola Screen: Patient negative for fever greater than or equal to 101.5 degrees Fahrenheit, and additional compatible Ebola Virus Disease symptoms Patient denies exposure to infectious person. Patient denies travel to an Ebola-affected area in the 21 days before illness onset. No symptoms or risks identified at this time. Initial Sepsis Screen: Does the patient meet any 2 criteria? No. Patient's initial sepsis screen is negative. Does the patient have a suspected source of infection? No. Patient's initial sepsis screen is negative. Risk Assessment: Do you want to hurt yourself or someone else? Patient reports no desire to harm self or others. Onset of symptoms was August 09, 2020. 23:34 Method Of Arrival: Ambulatory ca1 23:34 Acuity: SIVA 3 ca1 Historical: - Allergies: 23:36 NKDA; ca1 - PMHx: 23:36 ADD/ADHD; Asthma; Bipolar disorder; ca1 - PSHx: 23:36 None; ca1 - Immunization history:: Adult Immunizations up to date. - Social history:: Smoking status: Patient denies any tobacco usage or history of. - Family history:: not pertinent. Screenin/25 00:55 Abuse screen: Denies threats or abuse. Nutritional screening: No deficits noted. em Tuberculosis screening: No symptoms or risk factors identified. Fall Risk None identified. Assessment: 08/09 23:34 General: Appears in no apparent distress. comfortable, Behavior is calm, cooperative, em appropriate for age, Denies fever. Pain: Denies pain. Neuro: Level of Consciousness is awake, alert, obeys commands, Oriented to person, place, time, situation, Appropriate for age. Cardiovascular: Capillary refill < 3 seconds Patient's skin is warm and dry. Respiratory: Airway is patent Respiratory effort is even, unlabored, Respiratory pattern is regular, symmetrical. GI: Abdomen is flat, Reports bloody stool, nausea. Derm: Skin is intact, is healthy with good turgor, Skin is pink, warm \T\ dry. Musculoskeletal: Capillary refill < 3 seconds, Range of motion: intact in all extremities. 08/10 03:05 Reassessment: Patient appears in no apparent distress at this time. Patient and/or jb4 family updated on plan of care and expected duration. Pain level reassessed. Patient is alert, oriented x 3, equal unlabored respirations, skin warm/dry/pink. Vital Signs: 08/09 23:34 BP 144 / 83; Pulse 52; Resp 18; Temp 97.8; Pulse Ox 98% on R/A; Weight 90.72 kg; Height em 5 ft. 11 in. (180.34 cm); Pain 0/10; 23:34 Body Mass Index 27.89 (90.72 kg, 180.34 cm) em ED Course: 23:17 Patient arrived in ED. es 23:35 Triage completed. ca1 23:36 Arm band placed on. ca1 08/10 00:40 Niharika Ballard, RN is Primary Nurse. ca1 00:52 Initial lab(s) drawn, by me, sent to lab. Inserted saline lock: 20 gauge in right em antecubital area, using aseptic technique. Blood collected. 00:55 Patient has correct armband on for positive identification. Bed in low position. Call em light in reach. Pulse ox on. NIBP on. 00:57 Donald Molina MD is Attending Physician. cedric 01:45 Abdomen 1 View (KUB) XRAY In Process Unspecified. EDMS 02:48 Shilpa Elder MD is Referral Physician. cedric 03:05 No provider procedures requiring assistance completed. IV discontinued, intact, jb4 bleeding controlled, No redness/swelling at site. Pressure dressing applied. Administered Medications: 01:36 Drug: NS 0.9% 1000 ml Route: IV; Rate: 1 bolus; Site: right antecubital; em 02:45 Follow up: Response: No adverse reaction; IV Status: Completed infusion; IV Intake: jb4 1000ml 03:04 Drug: Cipro (ciprofloxacin) 500 mg Route: PO; jb4 03:04 Follow up: Response: Medication administered at discharge. jb4 Intake: 02:45 IV: 1000ml; Total: 1000ml. jb4 Outcome: 02:50 Discharge ordered by . cedric 03:05 Discharged to home ambulatory. jb4 03:05 Condition: stable 03:05 Discharge instructions given to patient, Instructed on discharge instructions, follow up and referral plans. medication usage, Demonstrated understanding of instructions, follow-up care, medications, Prescriptions given X 1. 03:05 Patient left the ED. jb4 Signatures: Dispatcher [employer] EDDonald De Anda MD MD cha Salyer, Bradley Soto RN RN Joel Salazar RN RN jb4 Niharika Ballard RN RN ca1 Corrections: (The following items were deleted from the chart) 00:56 08/09 23:34 BP 144 / 83; Pulse 52bpm; Resp 18bpm; Pulse Ox 9% RA; Temp 97.8F; 90.72 kg; em Height 5 ft. 11 in.; BMI: 27.8; Pain 0/10; ca1
[2020-08-10 03:15] VITALS: BP 144/83; TEMP 97.8; O2SAT 98
[2020-08-10] MEDS ORDERED: CIPROFLOXACIN HCL 500 MG TAB ONE (03:16)
--- NOTE | 2020-08-10 08:39 | RAD REPORT ---
EXAM DESCRIPTION: RAD - Abdomen 1 View (KUB) - 08/10/2020 1:45 am CLINICAL HISTORY: Abdomen pain. FINDINGS: The bowel gas pattern is unremarkable. A a moderate amount of stool is present throughout colon. No abnormal calcification is displayed
== END 2020-08-10 03:05 | disposition home or self-care (01) ==
LOC: ER 23:12
DX: K92.2 Gastrointestinal hemorrhage, unspecified (principal); F31.9 Bipolar disorder, unspecified
CPT/HCPCS: 85025; 80048; 36415; 80076; 83690; 74018; J7030

== ENCOUNTER 2020-10-01 13:08 | Emergency (ER) | payer OTHER ==
--- NOTE | 2020-10-01 14:05 | ER ---
Nurse's Notes [facility] Name: Alessandra Harp Jr Age: 20 yrs Sex: Male : 2000 Arrival Date: 10/01/2020 Time: 13:19 Bed Waiting Private MD: Diagnosis: ED Course: 10/01 13:19 Patient arrived in ED. mr Administered Medications: No medications were administered Outcome: 14:05 Patient left the ED. ss Signatures: Kyung Eng Shelby, RN RN ss
== END 2020-10-01 14:05 | disposition left against medical advice (07) ==
LOC: ER 13:08
DX: Z02.9 Encounter for administrative examinations, unspecified (principal)

== ENCOUNTER 2021-05-18 19:49 | Emergency (ER) | payer OTHER ==
[2021-05-18] MEDS ORDERED: CEFAZOLIN SODIUM 1 GM/VIAL ONE (21:08)
[2021-05-18] MEDS ORDERED: TETANUS & DIPHTHERIA TOX,ADULT 0.5 ML VIAL ONE (21:09)
[2021-05-18] MEDS ORDERED: WATER FOR INJ,STERILE 10 ML ONE (21:17)
--- NOTE | 2021-05-18 21:50 | RAD REPORT ---
EXAM DESCRIPTION: RAD - Foot Left 3 View - 05/18/2021 9:33 pm CLINICAL HISTORY: laceration COMPARISON: Foot Left 3 View dated 11/30/2017 FINDINGS: No fracture, dislocation or periosteal reaction. No acute or destructive bony process. No acute bone or joint finding. Site of laceration is not known. Faint punctate radiopaque densities are seen in the soft tissues med ial margin of the first MTP joint. These could be skin contaminant. If this is the location of the la ceration, repeat imaging can be performed following wound cleaning. IMPRESSION: No acute bone or joint finding. Punctate radiopaque densities along the medial margin of the first MTP joint could be foreign bodies or skin contaminant. If the laceration is in this location, repeat imaging could be performed after w ound cleaning.
--- NOTE | 2021-05-18 22:36 | EDPHYS ---
Physician Documentation [facility] Name: Alessandra Harp Jr Age: 21 yrs Sex: Male : 2000 Arrival Date: 05/18/2021 Time: 19:51 Bed 16 Private MD: ED Physician Gavin Short HPI: 05/18 20:31 This 21 yrs old Black Male presents to ER via Ambulatory with complaints of Laceration pm1 To Foot - yesterday. 20:31 The patient has a laceration related to: [place] and [place] pm1 barefoot. Patient did not even realize that he injured himself until he got into his car and saw that his foot was bleeding. The laceration(s) is(are) located on the medial aspect of left MIP. 20:31 Onset: The symptoms/episode began/occurred 23 hour(s) ago. Associated signs and pm1 symptoms: The patient has no apparent associated signs or symptoms, Pertinent negatives: deformity, heavy bleeding, numbness distal to injury, suspected foreign body, fever. The patient has not experienced similar symptoms in the past. The patient has not recently seen a physician. Patient [place] the beach at night barefoot and cut his left foot on an unknown object. Historical: - Allergies: 20:22 NKDA; ss - PMHx: 20:22 ADD/ADHD; Asthma; Bipolar disorder; ss - PSHx: 20:22 None; ss - Immunization history:: Adult Immunizations up to date, Client reports having NOT received the Covid vaccine. - Social history:: Smoking status: Patient denies any tobacco usage or history of. Patient/guardian denies using alcohol. ROS: 20:31 Constitutional: Negative for fever, chills, and weight loss, Cardiovascular: Negative pm1 for chest pain, palpitations, and edema, Respiratory: Negative for shortness of breath, cough, wheezing, and pleuritic chest pain. 20:31 Neuro: Negative for headache, weakness, numbness, tingling, and seizure. 20:31 MS/extremity: Positive for laceration, of the left foot, Negative for decreased range of motion, deformity. 20:31 Skin: Positive for laceration(s), of the left foot. 20:31 All other systems are negative. Exam: 20:31 Constitutional: This is a well developed, well nourished patient who is awake, alert, pm1 and in no acute distress. Head/Face: Normocephalic, atraumatic. 20:31 Back: No spinal tenderness. No costovertebral tenderness. Full range of motion. 20:31 Cardiovascular: Exam negative for acute changes, Rate: normal, Rhythm: regular, Pulses: no pulse deficits are appreciated. 20:31 Respiratory: Exam negative for acute changes, respiratory distress, shortness of breath. 20:31 Musculoskeletal/extremity: Extremities: grossly normal except: noted in the medial aspect of left MIP first toe: laceration, superficial laceration 4 cm in length, There is no evidence of decreased ROM, deformity, ROM: intact in all extremities, Circulation is intact in all extremities. 20:31 Skin: Appearance: normal except for affected area, as noted in MS exam. Vital Signs: 20:22 BP 137 / 99; Pulse 74; Resp 18; Temp 98.4(TE); Pulse Ox 100% on R/A; Weight 86.18 kg; ss Height 5 ft. 11 in. (180.34 cm); Pain 7/10; 21:40 BP 132 / 88; Pulse 72; Resp 16; Temp 98.5; Pulse Ox 100% on R/A; Pain 0/10; sami 20:22 Body Mass Index 26.50 (86.18 kg, 180.34 cm) ss MDM: 20:26 Patient medically screened. pm1 20:31 Data reviewed: vital signs. Data interpreted: Pulse oximetry: on room air is 2031 %. pm1 Interpretation: normal. 21:23 ED course: Superficial laceration that cannot be closed due to injury occurring 23 pm1 hours ago. 22:34 Refusal of service: The patient/guardian displays adequate decision making capability pm1 and despite a detailed discussion of alternatives, benefits, risks, and consequences refuses: wound cleaning and repeat x-ray. I informed the patient that there is a possible foreign body that is superficial that I would like to see if I could have the nurse clean well and then repeat the xray. Patient would like to go home so that he can attend his brother's birthday green party. 05/18 20:31 Order name: XRAY Foot LEFT 3 View; Complete Time: 21:57 pm1 05/18 21:58 Order name: Wound Care pm1 Administered Medications: 21:22 Drug: Ancef (cefazolin) 1 grams Route: IM; Site: right gluteus; sami 21:23 Drug: Tetanus-Diphtheria Toxoid Adult 0.5 ml {Shareholder: [employer]. Exp: sami 07/06/2022. Lot #: [id number]. } Route: IM; Site: right deltoid; 22:49 Drug: Doxycycline 100 mg Route: PO; sami Disposition: 05/19 19:06 Co-signature as Attending Physician, Gavin Short MD. [facility] Disposition Summary: 05/18/21 22:36 Discharge Ordered Location: Home pm1 Problem: new pm1 Symptoms: have improved pm1 Condition: Stable pm1 Diagnosis - Foot Laceration/ Open wound of foot pm1 Followup: pm1 - With: Emergency Department - When: As needed - Reason: Worsening of condition Followup: pm1 - With: Private Physician - When: 2 - 3 days - Reason: Recheck today's complaints, Continuance of care, Re-evaluation by your physician Discharge Instructions: - Discharge Summary Sheet pm1 - Nonsutured Laceration Care pm1 Forms: - Medication Reconciliation Form pm1 - Thank You Letter pm1 - Antibiotic Education pm1 - Prescription Opioid Use pm1 Prescriptions: - Doxycycline Hyclate 100 mg Oral Tablet - take 1 tablet by ORAL route every 12 hours; 20 tablet; Refills: 0, Product pm1 Selection Permitted Signatures: Dispatcher [employer] EDMS Traci Mckeon RN RN Zachery Cuenca, PAN CLEANER PAN CLEANER pm1 Gavin Short MD MD [facility] Brittany Macias RN RN sami Corrections: (The following items were deleted from the chart) 12:39 05/18 20:31 The laceration(s) is(are) located on the medial aspect of right MIP, pm1 pm1
--- NOTE | 2021-05-18 22:36 | ER ---
Nurse's Notes [facility] Name: Alessandra Harp Jr Age: 21 yrs Sex: Male : 2000 Arrival Date: 05/18/2021 Time: 19:51 Bed 16 Private MD: Diagnosis: Foot Laceration/ Open wound of foot Presentation: 05/18 20:22 Chief complaint: Patient states: I was running at the beach yesterday - laceration to ss the left big toe. Unaware of exactly what cut him. Coronavirus screen: At this time, the client does not indicate any symptoms associated with coronavirus-19. Ebola Screen: No symptoms or risks identified at this time. Complicating Factors: There are no complicating factors for this patient. Initial Sepsis Screen: Does the patient meet any 2 criteria? No. Patient's initial sepsis screen is negative. Does the patient have a suspected source of infection? No. Patient's initial sepsis screen is negative. Risk Assessment: Do you want to hurt yourself or someone else? Patient reports no desire to harm self or others. Onset of symptoms was May 18, 2021. 20:22 Method Of Arrival: Ambulatory ss 20:22 Acuity: SIVA 4 ss Triage Assessment: 20:22 General: Appears in no apparent distress. comfortable, Behavior is calm, cooperative, ss appropriate for age. Pain: Complains of pain in right first toe and Right first toenail Pain does not radiate. Pain currently is 7 out of 10 on a pain scale. Neuro: Level of Consciousness is awake, alert, obeys commands, Oriented to person, place, time, situation. Injury Description: Laceration sustained to plantar aspect of right first toe. Historical: - Allergies: 20:22 NKDA; ss - PMHx: 20:22 ADD/ADHD; Asthma; Bipolar disorder; ss - PSHx: 20:22 None; ss - Immunization history:: Adult Immunizations up to date, Client reports having NOT received the Covid vaccine. - Social history:: Smoking status: Patient denies any tobacco usage or history of. Patient/guardian denies using alcohol. Screenin:24 Abuse screen: Denies threats or abuse. Denies injuries from another. Nutritional sami screening: No deficits noted. Tuberculosis screening: No symptoms or risk factors identified. Fall Risk None identified. Assessment: 20:52 Reassessment: Patient appears in no apparent distress at this time. No changes from sami previously documented assessment. I recv'd the pt to room #16 \T\ 2029. 21:25 Injury Description: Laceration is contaminated, jagged, 2.6 to 7.5 cm long, not sami bleeding, Per the pt's report, he injured his left foot, on a late night beach run, last night. No active bleeding. The pt denies getting into the water, after the laceration. He is in NAD. He tolerated the injections well. 21:28 Musculoskeletal: No deficits noted. sami 21:34 Reassessment: I placed items needed by provider, at bedside, for irrigation, cleaning sami and dressing of wound. 22:34 Reassessment: The pt doesn't want to have the wound washed, but wants to go to his brother's birthday libertarian. The provider is going to dc him home with wound care instructions. Vital Signs: 20:22 BP 137 / 99; Pulse 74; Resp 18; Temp 98.4(TE); Pulse Ox 100% on R/A; Weight 86.18 kg; ss Height 5 ft. 11 in. (180.34 cm); Pain 7/10; 21:40 BP 132 / 88; Pulse 72; Resp 16; Temp 98.5; Pulse Ox 100% on R/A; Pain 0/10; sami 20:22 Body Mass Index 26.50 (86.18 kg, 180.34 cm) ED Course: 19:51 Patient arrived in ED. am2 20:22 Arm band placed on right wrist. ss 20:23 Triage completed. ss 20:26 Zachery Cuenca NP is PHCP. pm1 20:26 Gavin Short MD is Attending Physician. pm1 20:52 Brittany Macias, LAMIN is Primary Nurse. sami 21:24 No provider procedures requiring assistance completed. sami 21:28 Patient has correct armband on for positive identification. Call light in reach. sami 21:34 XRAY Foot LEFT 3 View In Process Unspecified. EDMS 23:03 Patient did not have IV access during this emergency room visit. sami Administered Medications: 21:22 Drug: Ancef (cefazolin) 1 grams Route: IM; Site: right gluteus; sami 21:23 Drug: Tetanus-Diphtheria Toxoid Adult 0.5 ml {Resolution Agent: [employer]. Exp: sami 07/06/2022. Lot #: [id number]. } Route: IM; Site: right deltoid; 22:49 Drug: Doxycycline 100 mg Route: PO; sami Outcome: 21:25 Condition: stable sami 22:36 Discharge ordered by MD. pm1 23:02 Discharged to home ambulatory. sami 23:02 Discharge instructions given to patient, Instructed on discharge instructions, follow up and referral plans. wound care, Demonstrated understanding of Prescriptions given X 23:04 Patient left the ED. sami Signatures: Dispatcher [employer] EDMS Traci Mckeon RN RN ss Zachery Cuenca, [employer] pm1 Noemi Corbett am2 Brittany Macias RN RN sami
[2021-05-18] MEDS ORDERED: DOXYCYCLINE 100 MG CAP PO ONE (22:48)
[2021-05-18 23:36] VITALS: O2SAT 100
[2021-05-18 23:37] VITALS: BP 132/88; TEMP 98.5
== END 2021-05-18 23:04 | disposition home or self-care (01) ==
LOC: ER 19:49
DX: S91.312A Laceration without foreign body, left foot, initial encounter (principal); W45.8XXA Other foreign body or object entering through skin, initial encounter; Y93.02 Activity, running; Y92.832 Beach as the place of occurrence of the external cause; Z23 Encounter for immunization
CPT/HCPCS: 73630; 90471; 90714; 96372; 99283; J0690

== ENCOUNTER 2022-01-05 13:16 | Emergency (ER) | payer OTHER ==
--- NOTE | 2022-01-05 15:02 | RAD REPORT ---
EXAM DESCRIPTION: CT - CTHCSPWOC - 01/05/2022 2:35 pm CLINICAL HISTORY: Trauma, head and neck injury. headache and neck pain s/p fall 3 days ago COMPARISON: Stone Protocol dated 06/27/2020 TECHNIQUE: Axial 5 mm thick images of the head were obtained. Axial 2 mm thick images of the cervical spine were obtained with sagittal and coronal reconstruction images generated and reviewed. All CT scans are performed using dose optimization technique as appropriate and may include automated exposure control or mA/KV adjustment according to patient size. FINDINGS: CT HEAD WITHOUT CONTRAST: No acute hemorrhage, hydrocephalus or extra-axial collection is identified.No areas of brain edema or midline shift. Moderate polypoid mucosal thickening affects both maxillary antra, greater on the left.The calvarium is intact. CT CERVICAL SPINE WITHOUT CONTRAST: No fracture or subluxation.No prevertebral soft tissues swelling is identified. IMPRESSION: No acute intracranial or cervical spine findings.
--- NOTE | 2022-01-05 15:32 | EDPHYS ---
Physician Documentation [facility] Name: Alessandra Harp Jr Age: 21 yrs Sex: Male : 2000 Arrival Date: 01/05/2022 Time: 13:18 Bed 10 Private MD: ED Physician Dnoald Molina HPI: 01/05 14:25 This 21 yrs old Black Male presents to ER via Ambulatory with complaints of Neck pain. cp 14:25 The patient or guardian complains of an injury, pain, that is acute. The symptoms are cp located on the left lateral aspect of neck and left posterior aspect of neck. 14:25 Onset: The symptoms/episode began/occurred 6 day(s) ago. Context: The neck cp injury/problem resulted from playing sports, fall while playing basketball and another fall 3 days ago after tripping and striking back of head and neck area against counter. Associated signs and symptoms: Pertinent negatives: fever, headache, numbness, vomiting, weakness. The pain does not radiate. Modifying factors: the symptoms are aggravated by movement. Severity of symptoms: in the emergency department the symptoms are unchanged, despite home interventions. Historical: - Allergies: 13:46 NKDA; ph - PMHx: 13:46 ADD/ADHD; Asthma; Bipolar disorder; ph - Immunization history:: Adult Immunizations up to date. - Social history:: Smoking status: Patient reports the use of cigarette tobacco products, cigars. ROS: 14:30 Neck: Positive for pain with movement, pain at rest, stiffness, tenderness. cp 14:30 Eyes: Negative for injury, pain, redness, and discharge. cp 14:30 Constitutional: Negative for body aches, chills, fever, poor PO intake. 14:30 Respiratory: Negative for cough, shortness of breath, wheezing. 14:30 Abdomen/GI: Negative for abdominal pain, nausea, vomiting, and diarrhea. Exam: 01/04 14:35 Constitutional: The patient appears in no acute distress, alert, awake, non-toxic, well cp developed, well nourished. 14:35 Head/face: Noted is tenderness, that is mild, of the left base of the skull. cp 14:35 Eyes: Periorbital structures: appear normal, Pupils: equal, round, and reactive to light and accomodation, Extraocular movements: intact throughout, Conjunctiva: normal, no exudate, no injection, Sclera: no appreciated abnormality, Lids and lashes: appear normal, bilaterally. 14:35 ENT: External ear(s): are unremarkable, Nose: is normal, Mouth: Lips: moist, Oral mucosa: pink and intact, moist, Posterior pharynx: Airway: no evidence of obstruction, patent. 14:35 Neck: External neck: swelling, is not appreciated, tenderness, of the left mid cervical area, left trapezius, left posterior aspect of neck and left lateral aspect of neck, C-spine: vertebral tenderness, that is mild, appreciated at C1, crepitus, is not appreciated, ROM/movement: pain, with rotation to the right, limited range of motion, is not appreciated, nuchal rigidity, is not appreciated, Lymph nodes: no appreciated lymphadenopathy. 14:35 Chest/axilla: Inspection: normal, Palpation: is normal, no crepitus, no tenderness. 14:35 Cardiovascular: Rate: normal, Rhythm: regular, JVD: is not appreciated. 14:35 Respiratory: the patient does not display signs of respiratory distress, Respirations: normal, no use of accessory muscles, no retractions, labored breathing, is not present, Breath sounds: are clear throughout. 14:35 Abdomen/GI: Inspection: abdomen appears normal, Palpation: abdomen is soft and non-tender, in all quadrants. 14:35 Back: pain, is absent, ROM is normal. 14:35 Musculoskeletal/extremity: Exam is negative for decreased range of motion, deformity, injury, ROM: intact in all extremities. 14:35 Neuro: Orientation: to person, place \T\ time. Mentation: is normal, Cerebellar function: is grossly normal, Motor: moves all fours, strength is normal, Sensation: is normal. Vital Signs: 01/05 13:44 BP 116 / 82; Pulse 99; Resp 18; Temp 98.9; Pulse Ox 97% on R/A; Weight 124.28 kg; ph Height 5 ft. 11 in. (180.34 cm); 13:44 Body Mass Index 38.21 (124.28 kg, 180.34 cm) ph MDM: 13:47 Patient medically screened. cp 15:30 Data reviewed: vital signs, nurses notes, radiologic studies, CT scan. cp 15:30 Differential diagnosis: cervical strain, subluxation, fracture, contusion. Counseling: cp I had a detailed discussion with the patient and/or guardian regarding: the historical points, exam findings, and any diagnostic results supporting the discharge/admit diagnosis, radiology results, the need for outpatient follow up, a family practitioner, to return to the emergency department if symptoms worsen or persist or if there are any questions or concerns that arise at home. 01/05 14:14 Order name: CT Head C Spine; Complete Time: 15:12 cp 01/05 15:12 Interpretation: Reviewed report. cp Administered Medications: 15:45 Not Given (Physician Discretion): Ketorolac 60 mg IM once cp 15:48 Drug: Ibuprofen 800 mg Route: PO; ss 15:48 Follow up: Response: No adverse reaction; Medication administered at discharge. ss 15:48 Not Given (pt left prior to administrationn): Tylenol 1000 mg PO once ss Disposition Summary: 01/05/22 15:31 Discharge Ordered Location: Home cp Problem: new cp Symptoms: have improved cp Condition: Stable cp Diagnosis - Cervicalgia cp Followup: cp - With: Private Physician - When: 2 - 3 days - Reason: Recheck today's complaints Discharge Instructions: - Discharge Summary Sheet cp - Muscle Strain cp - Heat Therapy cp - Neck Exercises cp Forms: - Medication Reconciliation Form cp - Thank You Letter cp - Antibiotic Education cp - Prescription Opioid Use cp Prescriptions: - Cyclobenzaprine 10 mg Oral Tablet - take 1 tablet by ORAL route every 8 hours As needed; 20 tablet; Refills: 0, cp Product Selection Permitted - Diclofenac Sodium 75 mg Oral tablet,delayed release (DR/EC) - take 1 tablet by ORAL route 2 times per day; 20 tablet; Refills: 0, Product cp Selection Permitted Signatures: Dispatcher [employer] Traci Mcdonald RN RN ss Hall, Patricia, RN RN ph Donald Deleon PA PA cp
--- NOTE | 2022-01-05 15:32 | ER ---
Nurse's Notes [facility] Name: Alessandra Harp Jr Age: 21 yrs Sex: Male : 2000 Arrival Date: 01/05/2022 Time: 13:18 Bed 10 Private MD: Diagnosis: Cervicalgia Presentation: 01/05 13:44 Chief complaint: Patient states: Fell and hit approx 1 week ago while playing basketball, + LOC but did not seek treatment, c/o dizziness, blurred vision. L sided headache and neck pain and nausea. Coronavirus screen: Vaccine status: Patient reports receiving the 1st dose of the Covid vaccine. Ebola Screen: No symptoms or risks identified at this time. Initial Sepsis Screen: Does the patient meet any 2 criteria? No. Patient's initial sepsis screen is negative. Does the patient have a suspected source of infection? No. Patient's initial sepsis screen is negative. Risk Assessment: Do you want to hurt yourself or someone else? Patient reports no desire to harm self or others. Onset of symptoms was January 05, 2022. 13:44 Method Of Arrival: Ambulatory 13:44 Acuity: SIVA 3 ph Historical: - Allergies: 13:46 NKDA; ph - PMHx: 13:46 ADD/ADHD; Asthma; Bipolar disorder; ph - Immunization history:: Adult Immunizations up to date. - Social history:: Smoking status: Patient reports the use of cigarette tobacco products, cigars. Screenin:48 Abuse screen: Denies threats or abuse. Denies injuries from another. Nutritional ss screening: No deficits noted. Tuberculosis screening: Never had TB. Fall Risk None identified. Assessment: 14:00 General: Appears uncomfortable, Behavior is calm, cooperative. Pain: Complains of pain ss in left lateral aspect of neck and left posterior aspect of neck and left trapezius and left mid cervical area and left base of the skull Pain currently is 7 out of 10 on a pain scale. Quality of pain is described as aching, tender, Is continuous. Neuro: Level of Consciousness is awake, alert, obeys commands. Respiratory: Airway is patent Respiratory effort is even, unlabored, Respiratory pattern is regular, symmetrical. Derm: Skin is intact, is healthy with good turgor, Skin is pink, warm \T\ dry. normal. 15:40 Reassessment: C collar placed by LUIS CARLOS Diez and removed after cleared. ss 15:48 Reassessment: Patient appears in no apparent distress at this time. Patient and/or ss family updated on plan of care and expected duration. Pain level reassessed. Vital Signs: 13:44 BP 116 / 82; Pulse 99; Resp 18; Temp 98.9; Pulse Ox 97% on R/A; Weight 124.28 kg; ph Height 5 ft. 11 in. (180.34 cm); 13:44 Body Mass Index 38.21 (124.28 kg, 180.34 cm) ph ED Course: 13:18 Patient arrived in ED. mr 13:27 Donald Deleon PA is PHCP. cp 13:27 Donald Molina MD is Attending Physician. cp 13:46 Triage completed. ph 13:46 Arm band placed on Patient placed in an exam room. ph 14:37 CT Head C Spine In Process Unspecified. EDND 15:48 Traci Mckeon RN is Primary Nurse. ss 15:48 Patient has correct armband on for positive identification. ss 15:48 No provider procedures requiring assistance completed. Patient did not have IV access ss during this emergency room visit. Administered Medications: 15:45 Not Given (Physician Discretion): Ketorolac 60 mg IM once cp 15:48 Drug: Ibuprofen 800 mg Route: PO; ss 15:48 Follow up: Response: No adverse reaction; Medication administered at discharge. ss 15:48 Not Given (pt left prior to administrationn): Tylenol 1000 mg PO once ss Medication: 15:48 VIS not applicable for this client. ss Outcome: 15:31 Discharge ordered by MD. cp 15:48 Discharged to home ambulatory. ss 15:48 Condition: good 15:48 Discharge instructions given to patient, family, Instructed on discharge instructions, follow up and referral plans. medication usage, Demonstrated understanding of instructions, follow-up care, medications, Prescriptions given X 2. 15:50 Patient left the ED. ss Signatures: Dispatcher [employer] BRIONNAND Kyung Eng mr Traci Mckeon, RN RN Christina Dougherty RN RN Donald Deleon PA PA cp
[2022-01-05] MEDS ORDERED: KETOROLAC 30 MG/ML INJ ONE (15:41)
[2022-01-05] MEDS ORDERED: IBUPROFEN 400 MG TAB ONE (15:47)
[2022-01-05 16:00] VITALS: BP 116/82; TEMP 98.9
[2022-01-05 16:05] VITALS: O2SAT 100
== END 2022-01-05 15:50 | disposition home or self-care (01) ==
LOC: ER 13:16
DX: M54.2 Cervicalgia (principal); Z72.0 Tobacco use
CPT/HCPCS: 70450; 72125; 99283

== ENCOUNTER 2022-03-22 08:22 | Emergency (ER) | payer OTHER ==
[2022-03-22 09:34] LABS: SARS-COV-2 RT PCR NEGATIVE (NEGATIVE)
--- NOTE | 2022-03-22 09:43 | ER ---
Nurse's Notes [facility] Name: Alessandra Harp Jr Age: 22 yrs Sex: Male : 2000 Arrival Date: 03/22/2022 Time: 08:26 Bed 12 Private MD: Diagnosis: Acute pharyngitis, unspecified;Cough Presentation: 03/22 08:28 Chief complaint: Patient states: congested for a few days, taking OTC meds Mucinex and iw no relief, no fever, I feel good there;s just mucous coming out, +cough at night. Coronavirus screen: Client presents with at least one sign or symptom that may indicate coronavirus-19. Ebola Screen: Patient negative for fever greater than or equal to 101.5 degrees Fahrenheit, and additional compatible Ebola Virus Disease symptoms Patient denies exposure to infectious person. Patient denies travel to an Ebola-affected area in the 21 days before illness onset. No symptoms or risks identified at this time. Initial Sepsis Screen: Does the patient meet any 2 criteria? No. Patient's initial sepsis screen is negative. Does the patient have a suspected source of infection? No. Patient's initial sepsis screen is negative. Risk Assessment: Do you want to hurt yourself or someone else? Patient reports no desire to harm self or others. Onset of symptoms was March 19, 2022. 08:28 Method Of Arrival: Ambulatory iw 08: Acuity: SIVA 4 iw Historical: - Allergies: 08:30 NKDA; iw - Home Meds: 08:30 None [Active]; iw - PMHx: 08:30 ADD/ADHD; Asthma; Bipolar disorder; iw - Immunization history:: Client reports having NOT received the Covid vaccine. - Social history:: Smoking status: Patient reports the use of cigarette tobacco products, Reported history of juuling and/or vaping. Vital Signs: 08:28 BP 131 / 84; Pulse 65; Resp 16; Temp 97.7; Pulse Ox 98% on R/A; iw ED Course: 08: Patient arrived in ED. as 08:27 Tone Zamora PA is PHCP. [facility] 08:27 Joey Manriquez MD is Attending Physician. [facility] 08:30 Triage completed. iw 08:30 Alecia Carpenter, RN is Primary Nurse. iw 08:30 Arm band placed on. iw Administered Medications: No medications were administered Outcome: 09:42 Discharge ordered by . daria 10:11 Patient left the ED. iw Signatures: Tone Zamora PA PA jmm Martinez, Amelia as Williams, Irene, RN RN iw
--- NOTE | 2022-03-22 09:43 | EDPHYS ---
Physician Documentation [facility] Name: Alessandra Harp Jr Age: 22 yrs Sex: Male : 2000 Arrival Date: 03/22/2022 Time: 08:26 Bed 12 Private MD: ED Physician Joey Manriquez HPI: 03/22 09:35 This 22 yrs old Black Male presents to ER via Ambulatory with complaints of Congestion. jmm 09:35 The patient or guardian reports cough. Onset: The symptoms/episode began/occurred jmm gradually. Modifying factors: The symptoms are alleviated by nothing, the symptoms are aggravated by nothing. Associated signs and symptoms: Pertinent positives: sore throat, Pertinent negatives: fever. This is a 22 year old male with a history of asthma, bipolar that presents to [facility] ED with complaints of cough, sore throat, productive cough. Denies vomiting, diarrhea. . Historical: - Allergies: 08:30 NKDA; iw - Home Meds: 08:30 None [Active]; iw - PMHx: 08:30 ADD/ADHD; Asthma; Bipolar disorder; iw - Immunization history:: Client reports having NOT received the Covid vaccine. - Social history:: Smoking status: Patient reports the use of cigarette tobacco products, Reported history of juuling and/or vaping. ROS: 09:35 Cardiovascular: Negative for chest pain, palpitations, and edema. jmm 09:35 Constitutional: Positive for body aches. 09:35 Respiratory: Positive for cough. 09:35 All other systems are negative. Exam: 09:35 Constitutional: This is a well developed, well nourished patient who is awake, alert, jmm and in no acute distress. Head/Face: atraumatic. Eyes: EOMI, no conjunctival erythema appreciated ENT: Moist Mucus Membranes Neck: Trachea midline, Supple Chest/axilla: Normal chest wall appearance and motion. Cardiovascular: Regular rate and rhythm. No edema appreciated Respiratory: Normal respirations, no respiratory distress appreciated Abdomen/GI: Non distended Back: Normal ROM 09:35 MS/ Extremity: Moves all extremities, no obvious deformities appreciated, no edema noted to the lower extremities Neuro: Awake and alert Psych: Behavior is normal, Mood is normal, Patient is cooperative and pleasant 09:35 ENT: Posterior pharynx: erythema, that is mild. Vital Signs: 08:28 BP 131 / 84; Pulse 65; Resp 16; Temp 97.7; Pulse Ox 98% on R/A; iw MDM: 08:34 Patient medically screened. [facility] 09:40 Data reviewed: vital signs, nurses notes. Counseling: I had a detailed discussion with rashmi the patient and/or guardian regarding: the historical points, exam findings, and any diagnostic results supporting the discharge/admit diagnosis, the need for outpatient follow up, to return to the emergency department if symptoms worsen or persist or if there are any questions or concerns that arise at home. ED course: Patient is alert and non toxic in appearance in the ED. No signs of resp distress. Patient advised to follow up with pcp and otherwise given strict return precautions. patient understood and agrees with the plan of care. . 03/22 08:28 Order name: COVID-19/FLU A+B; Complete Time: 09:35 [facility] 03/22 08:34 Order name: Strep; Complete Time: 09:20 [facility] 03/22 09:14 Order name: Throat Culture EDMS Administered Medications: No medications were administered Disposition: 10:17 Co-signature as Attending Physician, Joey Manriquez MD I reviewed the patient's care rn provided by the Advanced Practice Provider and agree with the diagnosis and treatment plan. Disposition Summary: 03/22/22 09:42 Discharge Ordered Location: Home [facility] Condition: Stable [facility] Diagnosis - Acute pharyngitis, unspecified jm - Cough [facility] Followup: [facility] - With: Private Physician - When: 2 - 3 days - Reason: Recheck today's complaints, Continuance of care, Re-evaluation by your physician Discharge Instructions: - Discharge Summary Sheet [facility] - Pharyngitis [facility] - Cough, Adult [facility] Forms: - Medication Reconciliation Form [facility] - Thank You Letter [facility] - Antibiotic Education [facility] - Prescription Opioid Use [facility] - Work release form [facility] Prescriptions: - Bromfed DM 2-30-10 mg/5 mL Oral syrup - take 10 milliliter by ORAL route every 4 hours; 200 milliliter; Refills: 0, [facility] Product Selection Permitted - albuterol sulfate 90 mcg/actuation Inhalation HFA aerosol inhaler - inhale 2 puff by INHALATION route every 4 hours; 1 Pump; Refills: 0, Product [facility] Selection Permitted - Zithromax Z-Lio 250 mg Oral Tablet - take 1 tablet by ORAL route as directed for 5 days Day 1 - take two (2) tablets jm one time. Day 2, 3, 4 , 5 take one (1) tablet once daily.; 6 tablet; Refills: 0, Product Selection Permitted Signatures: Dispatcher [employer] Tone Ford PA PA jmm Williams, Irene, RN RN iw Joey Manriquez MD MD rn
[2022-03-22 10:15] VITALS: BP 131/84; TEMP 97.7; O2SAT 98
== END 2022-03-22 10:11 | disposition home or self-care (01) ==
LOC: ER 08:22
DX: J02.9 Acute pharyngitis, unspecified (principal); R05.9 Cough, unspecified; Z20.822 Contact with and (suspected) exposure to COVID-19; Z72.0 Tobacco use
CPT/HCPCS: 87070; 87081; 0240U; 99281

== ENCOUNTER 2022-04-23 11:49 | Emergency (ER) | payer OTHER ==
--- NOTE | 2022-04-23 12:54 | RAD REPORT ---
EXAM DESCRIPTION: RAD - Ankle Right 3 View - 04/23/2022 12:45 pm CLINICAL HISTORY: Pain COMPARISON: None. FINDINGS: 3 views of the right ankle. No fracture, dislocation or periosteal reaction. Fused os trigonum. No joint effusion seen. No joint space narrowing. No soft tissue abnormality. IMPRESSION: No acute osseous abnormality of the right ankle.
[2022-04-23 13:35] VITALS: BP 134/84; TEMP 98; O2SAT 97
--- NOTE | 2022-05-09 15:35 | EDPHYS ---
Physician Documentation [facility] Name: Alessandra Harp Jr Age: 22 yrs Sex: Male : 2000 Arrival Date: 04/23/2022 Time: 11:53 Bed 10 Private MD: ED Physician Chadd Padilla HPI: 04/23 12:30 This 22 yrs old Black Male presents to ER via Ambulatory with complaints of Foot Injury.ms3 12:30 22-year-old male with past medical history of ADD/ADHD, asthma, bipolar disorder ms3 presents for right ankle pain status post twisting his ankle while working out. Patient states the pain is located in the lateral portion of his ankle. Patient rates his discomfort a 8/10 and describes it as sore. Patient states the pain is worse with touching the area. Patient denies alleviating factors.. Historical: - Allergies: 12:02 NKDA; ss - Home Meds: 12:02 abilify [Active]; ss - PMHx: 12:02 ADD/ADHD; Asthma; Bipolar disorder; ss - Immunization history:: Client reports having NOT received the Covid vaccine. - Social history:: Smoking status: Patient denies any tobacco usage or history of. ROS: 12:30 MS/extremity: Positive for pain. ms3 12:30 Constitutional: Negative for fever, and chills. Neck: Negative for injury, pain, and swelling, Cardiovascular: Negative for chest pain, and palpitations. Respiratory: Negative for shortness of breath, cough, wheezing, and pleuritic chest pain, Abdomen/GI: Negative for abdominal pain, nausea, vomiting, diarrhea, and constipation, Skin: Negative for injury, rash, and discoloration. 12:30 All other systems are negative. Exam: 12:30 Constitutional: This is a well developed, well nourished patient who is awake, alert, ms3 and in no acute distress. Head/Face: Normocephalic, atraumatic. Neck: Trachea midline, no cervical lymphadenopathy. Supple, full range of motion without nuchal rigidity, or vertebral point tenderness. No Meningismus. Chest/axilla: Normal chest wall appearance and motion. Nontender with no deformity. Cardiovascular: Regular rate and rhythm with a normal S1 and S2. No gallops, murmurs, or rubs. Normal PMI, no JVD. No pulse deficits. Respiratory: Lungs have equal breath sounds bilaterally, clear to auscultation and percussion. No rales, rhonchi or wheezes noted. No increased work of breathing, no retractions or nasal flaring. Abdomen/GI: Soft, non-tender, with normal bowel sounds. No distension or tympany. No guarding or rebound. No evidence of tenderness throughout. Skin: Warm, dry with normal turgor. Normal color with no rashes, no lesions, and no evidence of cellulitis. 12:30 Musculoskeletal/extremity: Extremities: noted in the Right ankle: pain, tenderness. Vital Signs: 12:00 BP 134 / 84; Pulse 92; Resp 16; Temp 98(O); Pulse Ox 97% on R/A; Weight 86.18 kg; ss Height 5 ft. 11 in. ; Pain 8/10; 12:00 Body Mass Index 26.50 (86.18 kg, 180.34 cm) ss 12:00 Pain Scale: Adult ss MDM: 12:25 Patient medically screened. ms3 12:30 Differential diagnosis: fracture, sprain. ms3 13:11 Data reviewed: vital signs, nurses notes, and as a result, I will discharge patient. ms3 Independent interpretation of the following test(s) in the Emergency Department X-Ray: My interpretation is Right ankle x-ray images reviewed by me and no fracture appreciated.. Counseling: I had a detailed discussion with the patient and/or guardian regarding: the historical points, exam findings, and any diagnostic results supporting the discharge/admit diagnosis, radiology results, the need for outpatient follow up, to return to the emergency department if symptoms worsen or persist or if there are any questions or concerns that arise at home. ED course: Discussed x-ray results with patient. Patient to follow-up Dr. Israel in 2 to 3 days. Discussed with patient if he is continuing to have pain in 1 week he may need additional imaging. Patient understands and agrees with plan. All questions were answered. Return precautions discussed include worsening symptoms, or any other concerns. 04/23 12:00 Order name: Ankle Right 3 View XRAY; Complete Time: 13:02 ss 04/23 13:03 Order name: Crutches; Complete Time: 13:16 ms3 Administered Medications: No medications were administered Disposition Summary: 04/23/22 13:06 Discharge Ordered Location: Home ms3 Condition: Stable ms3 Diagnosis - Sprain of unspecified ligament of right ankle ms3 Followup: ms3 - With: - When: 2 - 3 days - Reason: Recheck today's complaints Discharge Instructions: - Discharge Summary Sheet ss Forms: - Work release form ss - Medication Reconciliation Form ms3 - Thank You Letter ms3 - Antibiotic Education ms3 - Prescription Opioid Use ms3 Signatures: Dispatcher [employer] Traci Mcdonald RN RN ss Chadd Padilla, DO ms3
--- NOTE | 2022-05-09 15:35 | ER ---
Nurse's Notes [facility] Name: Alessandra Harp Jr Age: 22 yrs Sex: Male : 2000 Arrival Date: 04/23/2022 Time: 11:53 Bed 10 Private MD: Diagnosis: Sprain of unspecified ligament of right ankle Presentation: 04/23 12:00 Chief complaint: Patient states: R ankle pain after jumping and rolling ankle while ss working out less than 1 hour ago. Coronavirus screen: Client denies travel out of the [place] in the last 14 days. Ebola Screen: Patient denies exposure to infectious person. Patient denies travel to an Ebola-affected area in the 21 days before illness onset. Initial Sepsis Screen: Does the patient meet any 2 criteria? No. Patient's initial sepsis screen is negative. Does the patient have a suspected source of infection? No. Patient's initial sepsis screen is negative. Risk Assessment: Do you want to hurt yourself or someone else? Patient reports no desire to harm self or others. Onset of symptoms was April 23, 2022. 12:00 Method Of Arrival: Ambulatory ss 12:00 Acuity: SIVA 4 ss Historical: - Allergies: 12:02 NKDA; ss - Home Meds: 12:02 abilify [Active]; ss - PMHx: 12:02 ADD/ADHD; Asthma; Bipolar disorder; ss - Immunization history:: Client reports having NOT received the Covid vaccine. - Social history:: Smoking status: Patient denies any tobacco usage or history of. Screenin:37 [facility] ED Fall Risk Assessment (Adult) Score/Fall Risk Level 0 - 2 = Low Risk hb Oriented to surroundings, Maintained a safe environment, Educated pt \T\ family on fall prevention, incl call for assistance when getting out of bed. Abuse screen: Denies threats or abuse. Denies injuries from another. Nutritional screening: No deficits noted. Tuberculosis screening: No symptoms or risk factors identified. Assessment: 12:37 General: Appears in no apparent distress. Behavior is calm, cooperative. Pain: Pain hb currently is 8 out of 10 on a pain scale. Neuro: Level of Consciousness is awake, alert, obeys commands, Oriented to person, place, time, situation. Cardiovascular: Patient's skin is warm and dry. Respiratory: Respiratory effort is even, unlabored, Respiratory pattern is regular, symmetrical. GI: No signs and/or symptoms were reported involving the gastrointestinal system. : No signs and/or symptoms were reported regarding the genitourinary system. EENT: No signs and/or symptoms were reported regarding the EENT system. Derm: Skin is pink, warm \T\ dry. Musculoskeletal: Reports right ankle pain. Vital Signs: 12:00 BP 134 / 84; Pulse 92; Resp 16; Temp 98(O); Pulse Ox 97% on R/A; Weight 86.18 kg; ss Height 5 ft. 11 in. ; Pain 8/10; 12:00 Body Mass Index 26.50 (86.18 kg, 180.34 cm) ss 12:00 Pain Scale: Adult ED Course: 11:53 Patient arrived in ED. mr 11:55 Chadd Padilla DO is Attending Physician. ms3 12:02 Triage completed. ss 12:02 Arm band placed on right wrist. ss 12:37 Alissa Stone, RN is Primary Nurse. hb 12:37 Patient has correct armband on for positive identification. hb 12:38 No provider procedures requiring assistance completed. Patient did not have IV access hb during this emergency room visit. 12:47 Ankle Right 3 View XRAY In Process Unspecified. EDMS 13:06 Vernon Israel MD is Referral Physician. ms3 Administered Medications: No medications were administered Medication: 12:37 VIS not applicable for this client. hb Outcome: 13:06 Discharge ordered by . ms3 13:29 Patient left the ED. Signatures: Dispatcher [employer] EDKS Kyung Eng Shelby, RN RN Alissa Stone, LAMIN RN Chadd Padilla DO DO ms3
== END 2022-04-23 13:29 | disposition home or self-care (01) ==
LOC: ER 11:49
DX: S93.401A Sprain of unspecified ligament of right ankle, initial encounter (principal)
CPT/HCPCS: 99282

== ENCOUNTER 2022-07-25 15:57 | Emergency (ER) | payer OTHER ==
--- OUTSIDE RECORDS SUMMARY | 2022-07-25 16:00 | XMS REPORT | Continuity of Care Document ---
:2000 Author Organization [facility] t Address [address] [place] [address] [place] [id number] Care Team Providers Name Role Phone Unavailable Unavailable Unavailable Problems This patient has no known problems. Allergies, Adverse Reactions, Alerts This patient has no known allergies or adverse reactions. Medications This patient has no known medications. Procedures This patient has no known procedures. Encounters Start End Encounter Admission Attending Care Care Encounter Source Date/Time Date/Time Type Type Clinicians Facility Department ID 2022-07-02 2022-07-02 Outpatient [facility] PAL [id number] [place] 13:51:08 13:51:08 [id number] [facility] Results This patient has no known results.
[2022-07-25] MEDS ORDERED: IBUPROFEN 400 MG TAB ONE (17:13)
[2022-07-25] MEDS ORDERED: LIDOCAINE 1% W/EPI 1:100,000 50 ML MDV ONE (17:59)
--- NOTE | 2022-07-25 18:06 | RAD REPORT ---
EXAM DESCRIPTION: RAD -Hand Left 3 View - 07/25/2022 5:33 pm CLINICAL HISTORY: Left hand pain status post injury FINDINGS: No fracture or dislocation is seen. A radiopaque foreign body not seen
--- NOTE | 2022-07-25 18:06 | EDPHYS ---
Physician Documentation [facility] Name: Alessandra Harp Jr Age: 22 yrs Sex: Male : 2000 Arrival Date: 07/25/2022 Time: 15:57 Bed 9 Private MD: ED Physician French Casey HPI: 07/25 16:17 This 22 yrs old Black Male presents to ER via Unassigned with complaints of Laceration cp To Hand. 16:17 The patient has a laceration occurred at work, and The type of wound is a puncture. The cp laceration(s) is(are) located on the palm of left hand. Onset: The symptoms/episode began/occurred just prior to arrival. 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 16:17 Associated signs and symptoms: The patient has no apparent associated signs or symptoms.cp Historical: - Allergies: 16:20 NKDA; ld1 - PMHx: 16:20 ADD/ADHD; Asthma; Bipolar disorder; ld1 - Immunization history:: Adult Immunizations up to date, Client reports receiving the 2nd dose of the Covid vaccine. - Social history:: Smoking status: Patient denies any tobacco usage or history of. Patient/guardian denies using alcohol. ROS: 16:20 Constitutional: Negative for body aches, chills, fever, poor PO intake. cp 16:20 Skin: Positive for laceration(s), puncture, rash, swelling, of the palm of left hand. cp 16:20 Neuro: Negative for numbness, tingling. 16:20 All other systems are negative. Exam: 16:33 Head/Face: Normocephalic, atraumatic. cp 16:33 Constitutional: The patient appears in no acute distress, alert, awake, non-toxic, well developed, well nourished. 16:33 Chest/axilla: Inspection: normal. 16:33 Cardiovascular: Rate: normal, Rhythm: regular, Pulses: Pulses are 2+ in left radial artery. 16:33 Respiratory: the patient does not display signs of respiratory distress, Respirations: normal, no use of accessory muscles, no retractions, labored breathing, is not present, Breath sounds: are clear throughout, no decreased breath sounds, no stridor, no wheezing. 16:33 Abdomen/GI: Inspection: abdomen appears normal. 16:33 Back: pain, is absent, ROM is normal. 16:33 Skin: injury, that can be described as clean, no foreign body, linear, with mild bleeding, puncture(s), that are deep, of the palm of left hand proximal hyperthenar eminence. Vital Signs: 16:19 BP 147 / 83; Pulse 86; Resp 18; Temp 97.9(TE); Pulse Ox 100% on R/A; Weight 85.28 kg; ld1 Height 6 ft. 0 in. ; Pain 0/10; 18:40 BP 133 / 74; Pulse 72; Resp 16; Pulse Ox 98% on R/A; Pain 0/10; nj1 16:19 Body Mass Index 25.50 (85.28 kg, 182.88 cm) ld1 16:19 Pain Scale: Adult ld1 18:40 Pain Scale: Adult nj1 Laceration: 18:01 Wound Repair of 2cm ( 0.8in ) subcutaneous laceration to palm of left hand hyperthenar cp eminence. Linear shaped.. Distal neuro/vascular/tendon intact. Anesthesia: Wound infiltrated with 4 mls of 1% lidocaine w/ Epi. Wound prep: Moderate cleansing by me, Wound irrigation by me. Skin closed with 2 4-0 Prolene using interrupted sutures and sterile technique. Dressed with Bacitracin, 4x4's. Patient tolerated well. MDM: 16:29 Patient medically screened. 18:02 Data reviewed: vital signs, nurses notes, radiologic studies, plain films. 18:02 Differential diagnosis: superficial laceration, tendon injury, vascular injury, open cp fracture. I considered the following discharge prescriptions or medication management in the emergency department Medications were administered in the Emergency Department. See MAR. Counseling: I had a detailed discussion with the patient and/or guardian regarding: the historical points, exam findings, and any diagnostic results supporting the discharge/admit diagnosis, radiology results, the need for outpatient follow up, a family practitioner, to return to the emergency department if symptoms worsen or persist or if there are any questions or concerns that arise at home. 07/25 17:00 Order name: XRAY Hand LEFT 3 View; Complete Time: 18:43 07/25 18:43 Interpretation: Report reviewed. cp 07/25 17:07 Order name: Dressing - Wound; Complete Time: 18:22 cp 07/25 17:07 Order name: Gloves, Sterile; Complete Time: 17:52 cp 07/25 17:07 Order name: Setup Suture Tray; Complete Time: 17:52 cp 07/25 18:01 Order name: Wound dressing; Complete Time: 18:22 cp Administered Medications: 17:10 Drug: Ibuprofen PO 800 mg Route: PO; nj1 18:40 Follow up: Response: No adverse reaction; Pain is decreased nj1 18:04 Drug: Lidocaine-Epinephrine Infiltration -1%: (1:100,000) 5 ml {Note: Medication given nj1 to Donald Deleon PA to be administered by him..} Volume: 20 ml; Route: Infiltration; 18:21 Follow up: Response: No adverse reaction nj1 18:20 Drug: Tetanus-Diphtheria Toxoid IM Adult 0.5 ml {Receptionist Doctor'S Office: [employer]. Exp: nj1 07/27/2023. Lot #: [id number]. } Route: IM; Site: right deltoid; 18:40 Follow up: Response: No adverse reaction nj1 Disposition Summary: 07/25/22 18:04 Discharge Ordered Location: Home cp Problem: new cp Symptoms: have improved cp Condition: Stable cp Diagnosis - Laceration without foreign body of left hand, initial encounter cp Followup: cp - With: Private Physician - When: 7 - 10 days - Reason: Staple/Suture removal Discharge Instructions: - Discharge Summary Sheet cp - Laceration Care, Adult cp Forms: - Medication Reconciliation Form cp - Thank You Letter cp - Antibiotic Education cp - Prescription Opioid Use cp - Work release form nj1 Prescriptions: - Cephalexin 500 mg Oral Capsule - take 1 capsule by ORAL route every 8 hours for 10 days; 30 capsule; Refills: 0, cp Product Selection Permitted - Ibuprofen 800 mg Oral Tablet - take 1 tablet by ORAL route every 8 hours As needed take with food; 30 tablet; cp Refills: 0, Product Selection Permitted Addendum: 07/28/2022 23:17 Co-signature as Attending Physician, French Casey MD I reviewed the patient's care r t provided by the Advanced Practice Provider and agree with the diagnosis and treatment plan. Signatures: Dispatcher [employer] EDDonald Foote PA PA cp Leatha Padilla RN RN ld1 French Casey MD MD rt Shakira Lamas, RN RN nj1
--- NOTE | 2022-07-25 18:06 | ER ---
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 Coronavirus screen: At this time, the client does not indicate any symptoms associated with coronavirus-19. Ebola Screen: No symptoms or risks identified at this time. Complicating Factors: There are no complicating factors for this patient. Initial Sepsis Screen: Does the patient meet any 2 criteria? No. Patient's initial sepsis screen is negative. Does the patient have a suspected source of infection? No. Patient's initial sepsis screen is negative. Risk Assessment: Do you want to hurt yourself or someone else? Patient reports no desire to harm self or others. Onset of symptoms was July 25, 2022. 16:19 Method Of Arrival: Ambulatory ld1 16:19 Acuity: SIVA 4 ld1 Triage Assessment: 16:20 General: Appears in no apparent distress. comfortable, Behavior is calm, cooperative, ld1 appropriate for age. Pain: Complains of pain in palm of left hand and inner aspect of left palm Pain does not radiate. EENT: No signs and/or symptoms were reported regarding the EENT system. Neuro: Level of Consciousness is awake, alert, obeys commands, Oriented to person, place, time, situation. Cardiovascular: Capillary refill < 3 seconds Patient's skin is warm and dry. Respiratory: Airway is patent Respiratory effort is even, unlabored. Injury Description: Laceration sustained to left hand. Historical: - Allergies: 16:20 NKDA; ld1 - PMHx: 16:20 ADD/ADHD; Asthma; Bipolar disorder; ld1 - Immunization history:: Adult Immunizations up to date, Client reports receiving the 2nd dose of the Covid vaccine. - Social history:: Smoking status: Patient denies any tobacco usage or history of. Patient/guardian denies using alcohol. Screenin:26 [facility] ED Fall Risk Assessment (Adult) History of falling in the last 3 months, nj1 including since admission No falls in past 3 months (0 pts) Confusion or Disorientation No (0 pts) Intoxicated or Sedated No (0 pts) Impaired Gait No (0 pts) Mobility Assist Device Used No (0 pt) Altered Elimination No (0 pt) Score/Fall Risk Level 0 - 2 = Low Risk Oriented to surroundings, Maintained a safe environment, Hourly rounding (assess needs \T\ fall precautionary measures) done. Abuse screen: Denies threats or abuse. Denies injuries from another. Nutritional screening: No deficits noted. Tuberculosis screening: No symptoms or risk factors identified. Assessment: 17:10 General: Appears in no apparent distress. comfortable, Behavior is calm, cooperative, nj1 appropriate for age. Pain: Complains of pain in heel of left hand Pain currently is 8 out of 10 on a pain scale. Quality of pain is described as throbbing. Neuro: Level of Consciousness is awake, alert, obeys commands, Oriented to person, place, time, situation. Cardiovascular: Patient's skin is warm and dry. Respiratory: Airway is patent Respiratory effort is even, unlabored. Derm: Wound noted heel of left hand Wound is 1cm. 17:10 Injury Description: Puncture sustained to heel of left hand is superficial. nj1 18:40 Reassessment: Patient appears in no apparent distress at this time. Patient and/or nj1 family updated on plan of care and expected duration. Pain level reassessed. Patient is alert, oriented x 3, equal unlabored respirations, skin warm/dry/pink. Patient denies pain at this time. Patient states feeling better. Vital Signs: 16:19 BP 147 / 83; Pulse 86; Resp 18; Temp 97.9(TE); Pulse Ox 100% on R/A; Weight 85.28 kg; ld1 Height 6 ft. 0 in. ; Pain 0/10; 18:40 BP 133 / 74; Pulse 72; Resp 16; Pulse Ox 98% on R/A; Pain 0/10; nj1 16:19 Body Mass Index 25.50 (85.28 kg, 182.88 cm) ld1 16:19 Pain Scale: Adult ld1 18:40 Pain Scale: Adult nj1 ED Course: 15:59 Patient arrived in ED. am2 15:59 French Casey MD is Attending Physician. rt 16:00 Donald Deleon PA is PHCP. cp 16:20 Triage completed. ld1 16:20 Arm band placed on right wrist. ld1 16:22 Shakira Lamas, RN is Primary Nurse. nj1 17:10 Patient has correct armband on for positive identification. Bed in low position. Call nj1 light in reach. 17:35 XRAY Hand LEFT 3 View In Process Unspecified. EDMS 18:20 Wound care: located on heel of left hand was dressed with Neosporin, band aid. nj1 18:23 No provider procedures requiring assistance completed. Patient did not have IV access nj1 during this emergency room visit. Administered Medications: 17:10 Drug: Ibuprofen PO 800 mg Route: PO; nj1 18:40 Follow up: Response: No adverse reaction; Pain is decreased nj1 18:04 Drug: Lidocaine-Epinephrine Infiltration -1%: (1:100,000) 5 ml {Note: Medication given nj1 to Donald ALDRIDGE to be administered by him..} Volume: 20 ml; Route: Infiltration; 18:21 Follow up: Response: No adverse reaction nj1 18:20 Drug: Tetanus-Diphtheria Toxoid IM Adult 0.5 ml {Student Success Advisor: [employer]. Exp: nj1 07/27/2023. Lot #: [id number]. } Route: IM; Site: right deltoid; 18:40 Follow up: Response: No adverse reaction nj1 Medication: 18:23 Vaccine Information Statement (VIS) provided today. Questions and/or concerns nj1 addressed. VIS edition date: September 21, 2020. Outcome: 18:04 Discharge ordered by . cp 18:40 Discharged to home ambulatory. nj1 18:40 Condition: stable 18:40 Discharge instructions given to patient, Instructed on discharge instructions, follow up and referral plans. medication usage, Demonstrated understanding of instructions, follow-up care, medications, Prescriptions given X 2. 18:40 Patient left the ED. nj1 Signatures: Dispatcher [employer] EDIN Donald Deleon PA PA cp Noemi Corbett am2 Leatha Padilla, RN RN ld1 French Casey MD MD rt Shakira Lamas, RN RN nj1 Corrections: (The following items were deleted from the chart) 18:57 18:57 Patient left the ED. nj1 nj1
[2022-07-25] MEDS ORDERED: TETANUS & DIPHTHERIA TOX,ADULT 0.5 ML VIAL ONE (18:22)
[2022-07-25 20:15] VITALS: TEMP 97.9
[2022-07-25 20:16] VITALS: BP 133/74; O2SAT 98
== END 2022-07-25 18:57 | disposition home or self-care (01) ==
LOC: ER 15:57
PROC: 0HQGXZZ Repair Left Hand Skin, External Approach (ICD-10-PCS; principal; 2022-07-25)
DX: S61.412A Laceration without foreign body of left hand, initial encounter (principal); Z23 Encounter for immunization
CPT/HCPCS: 90471; 90714; 99284

== ENCOUNTER → 2023-04-29 | Emergency (ER) | payer OTHER ==
--- OUTSIDE RECORDS SUMMARY | 2023-04-29 18:53 | XMS REPORT | Continuity of Care Document ---
Author Name Unknown Address [address] [facility] [address] [place] [address] [facility] thconnect Address [address] [facility] [place] [address] Care Team Providers Care Truck Washer Name Role Phone Unavailable Unavailable Unavailable Encounters Start Date/Time End Date/Time Encounter Type Admission Type Attending Clinicians Care Facility Care Department Encounter ID Source 2023-04-29 17:47:40 2023-04-29 17:47:[address] [facility] [id number] Ok Cummings 2023-04-23 16:00:05 2023-04-23 16:00:05 Outpatient S[facility] [id number] Ok Cummings 2023-01-26 17:13:24 2023-01-26 17:13:24 Outpatient SFA S[facility] [id number] Ok Cummings 2023-01-21 08:08:10 2023-01-21 08:08:10 Outpatient SFA SFA [id number] Ok Diamond Emiliano 2023-01-13 13:00:07 2023-01-13 13:00:07 Outpatient SFA SFA [id number] Ok Cummings 2022-12-15 13:13:37 2022-12-15 13:13:37 Outpatient SFA SFA [id number] Ok Cummings 2022-12-09 13:43:30 2022-12-09 13:43:30 Outpatient SFA SFA [id number] Ok Cummings 2022-11-11 08:42:17 2022-11-11 08:42:17 Outpatient SFA SFA [id number] Ok Cummings 2022-09-15 13:48:11 2022-09-15 13:48:11 Outpatient [facility] [id number] Ok Cummings 2022-07-02 13:51:08 2022-07-02 13:51:08 Outpatient [facility] [id number] Ok Cummings Results Test Description Test Time Test Comments Results Result Co mments Source TSH, THIRD [id number] 05:22:03* Test Item Value Reference Range Interpretation Comme nts TSH, THIRD GENERATION (test code = 2821) 1.410 UIU/ML 0.400-4.100 COMPREHENSIVE METABOLIC [id number] 04:20:58* Test Item Value Reference Range Interpretation Comme nts GLUCOSE (test code = 2217) 89 MG/DL 70-99 BUN (test code = 2207) 12 MG/DL 6-20 CREATININE (test code = 2214) 0.91 MG/DL 0.80-1.40 eGFR (2020 CKD-EPI) (test code = 13294) 121 ML/MIN/1.73 >60 CALC BUN/CREAT (test code = 2235) 13 RATIO 6-28 SODIUM (test code = 2231) 142 MEQ/L 133-146 POTASSIUM (test code = 2228) 4.1 MEQ/L 3.5-5.4 CHLORIDE (test code = 2215) 102 MEQ/L 95-107 CARBON DIOXIDE (test code = 2206) 29 MEQ/L 19-31 CALCIUM (test code = 2209) 9.9 MG/DL 8.5-10.5 PROTEIN, TOTAL (test code = 2229) 7.1 G/DL 6.1-8.3 ALBUMIN (test code = 2201) 4.7 G/DL 3.5-5.2 CALC GLOBULIN (test code = 2240) 2.4 G/DL 1.9-3.7 CALC A/G RATIO (test code = 2234) 2.0 RATIO 1.0-2.6 BILIRUBIN, TOTAL (test code = 2207) 0.5 MG/DL <=1.2 ALKALINE PHOSPHATASE (test code = 2204) 70 U/L 40-121 AST (test code = 2218) 33 U/L 9-50 ALT (test code = 2219) 16 U/L 5-50 LIPID [id number] 04:20:58* Test Item Value Reference Range Interpretation Comme nts CHOLESTEROL (test code = 2210) 168 MG/DL <200 TRIGLYCERIDES (test code = 2232) 35 MG/DL <150 HDL CHOLESTEROL (test code = 2220) 70 MG/DL >39 CALC LDL CHOL (test code = 2237) 88 MG/DL <100 NOTE: CALCULATED LDL IS BASED ON ADRIANO-FRANCO METHOD WHICHINCLUDES ADJUSTABLE TRIGLYCERIDE:VLDL CHOLESTEROL RATIO.THIS FACTOR VARIES BY MEASURED TRIGLYCERIDE AND NON-HDLCHOLESTEROL CONCENTRATIONS WITH INCREASED CALCULATED LDL SEENIN HIGHER TRIGLYCERIDE OR LOWER NON-HDL SPECIMENS. FOR MOREINFORMATION, SEE CLIENT ANNOUNCEMENT AT [email or web address] RATIO LDL/HDL (test code = 2238) 1.26 RATIO <3.55 UNLESS OTHERW ISE INDICATED, ALL TESTING PERFORMED AT [facility] [address] [place] [id number] CONSTRUCTION SITE CROSSING GUARD: SATURNINO RUTHERFORD M.D. [place] NUMBER [id number] [facility] [place] [place]. [id number]
--- NOTE | 2023-04-29 19:09 | EDPHYS ---
Physician Documentation [facility] Name: Alessandra Harp Jr Age: 23 yrs Sex: Male : 2000 Arrival Date: 04/29/2023 Time: 18:49 Bed IW9 Private MD: ED Physician French Casey HPI: 04/28 19:53 This 23 yrs old Black Male presents to ER via Ambulatory with complaints of High Blood rt Pressure. 19:53 Patient presents to the ED with reported hypertension from clinic, was told to come to rt the ED for further evaluation. Blood pressure has been in the 130s to 140s range. He denies any symptoms at this time. Any chest pain, shortness of breath, dizziness. No other aggravating or alleviating factors. Historical: - Allergies: 19:09 NKDA; vc1 - PMHx: 19:09 ADD/ADHD; Asthma; Bipolar disorder; vc1 - PSHx: 19:09 None; vc1 - Immunization history:: Client reports receiving the 2nd dose of the Covid vaccine, Flu vaccine is up to date. - Social history:: Smoking status: Patient reports use of chewing tobacco. - Family history:: not pertinent. ROS: 19:53 Constitutional: Negative for fever, chills, and weight loss, Cardiovascular: Negative rt for chest pain, palpitations, and edema, Respiratory: Negative for shortness of breath, cough, wheezing, and pleuritic chest pain, Abdomen/GI: Negative for abdominal pain, nausea, vomiting, diarrhea, and constipation, Skin: Negative for injury, rash, and discoloration, Neuro: Negative for headache, weakness, numbness, tingling, and seizure, Psych: Negative for depression, anxiety, suicide ideation, homicidal ideation, and hallucinations, Exam: 19:53 Constitutional: This is a well developed, well nourished patient who is awake, alert, rt and in no acute distress. Head/Face: Normocephalic, atraumatic. Chest/axilla: Normal chest wall appearance and motion. Nontender with no deformity. No lesions are appreciated. Cardiovascular: Regular rate and rhythm with a normal S1 and S2. No gallops, murmurs, or rubs. Normal PMI, no JVD. No pulse deficits. Respiratory: Lungs have equal breath sounds bilaterally, clear to auscultation and percussion. No rales, rhonchi or wheezes noted. No increased work of breathing, no retractions or nasal flaring. Abdomen/GI: Soft, non-tender, with normal bowel sounds. No distension or tympany. No guarding or rebound. No evidence of tenderness throughout. Skin: Warm, dry with normal turgor. Normal color with no rashes, no lesions, and no evidence of cellulitis. MS/ Extremity: Pulses equal, no cyanosis. Neurovascular intact. Full, normal range of motion. Neuro: Awake and alert, GCS 15, oriented to person, place, time, and situation. Cranial nerves II-XII grossly intact. Motor strength 5/5 in all extremities. Sensory grossly intact. Cerebellar exam normal. Normal gait. Psych: Awake, alert, with orientation to person, place and time. Behavior, mood, and affect are within normal limits. Vital Signs: 19:06 BP 140 / 80; Pulse 68; Resp 18; Temp 97.8; Pulse Ox 99% ; Weight 90.26 kg; Height 5 ft. vc1 11 in. ; Pain 0/10; 19:06 Body Mass Index 27.75 (90.26 kg, 180.34 cm) vc1 19:06 Pain Scale: Adult vc1 MDM: 19:09 Patient medically screened. rt 19:53 Differential diagnosis: Essential hypertension. Data reviewed: vital signs, nurses rt notes. Test considered but Not performed: Other Details Patient is asymptomatic, no severe range blood pressures, workup is not indicated. Care significantly affected by the following chronic conditions: Hypertension. Administered Medications: No medications were administered Disposition Summary: 04/29/23 19:09 Discharge Ordered Notes: Location: Home rt Problem: an ongoing problem rt Symptoms: are unchanged rt Condition: Stable rt Diagnosis - Essential (primary) hypertension rt Followup: rt - With: Private Physician - When: 2 - 3 days - Reason: Discharge Instructions: - Discharge Summary Sheet rt - Hypertension, Adult rt Forms: - Medication Reconciliation Form rt - Thank You Letter rt - Antibiotic Education rt - Prescription Opioid Use rt - Patient Portal Instructions rt - Leadership Thank You Letter rt Prescriptions: - Norvasc 5 mg Oral tablet - take 1 tablet ORAL route once daily; 30 tablet; Refills: 0, Product Selection rt Permitted Signatures: Ileana Almaraz RN RN vc1 French Casey MD MD rt
--- NOTE | 2023-04-29 19:09 | ER ---
Nurse's Notes [facility] Name: Alessandra Harp Jr Age: 23 yrs Sex: Male : 2000 Arrival Date: 04/29/2023 Time: 18:49 Bed IW9 Private MD: Diagnosis: Essential (primary) hypertension Presentation: 04/28 19:06 Chief complaint: Patient states: reported high blood pressure. Coronavirus screen: At vc1 this time, the client does not indicate any symptoms associated with coronavirus-19. Ebola Screen: Patient negative for fever greater than or equal to 101.5 degrees Fahrenheit, and additional compatible Ebola Virus Disease symptoms Patient denies exposure to infectious person. Patient denies travel to an Ebola-affected area in the 21 days before illness onset. No symptoms or risks identified at this time. Initial Sepsis Screen: Does the patient meet any 2 criteria? No. Patient's initial sepsis screen is negative. Does the patient have a suspected source of infection? No. Patient's initial sepsis screen is negative. Risk Assessment: Do you want to hurt yourself or someone else? Patient reports no desire to harm self or others. Note Pt states the last couple of times I went to [facility] they said my blood pressure was high. Onset of symptoms is unknown. 19:06 Method Of Arrival: Ambulatory vc1 19:06 Acuity: SIVA 4 vc1 Triage Assessment: 19:10 General: Appears in no apparent distress. comfortable, Behavior is calm, cooperative, vc1 appropriate for age. Pain: Denies pain. EENT: No deficits noted. No signs and/or symptoms were reported regarding the EENT system. Neuro: Level of Consciousness is awake, alert, obeys commands, Oriented to person, place, time, situation, Appropriate for age. Cardiovascular: No deficits noted. Heart tones S1 S2 Capillary refill < 3 seconds Patient's skin is warm and dry. Respiratory: Airway is patent Respiratory effort is even, unlabored, Respiratory pattern is regular, symmetrical, Breath sounds are clear. GI: No deficits noted. No signs and/or symptoms were reported involving the gastrointestinal system. : No deficits noted. No signs and/or symptoms were reported regarding the genitourinary system. Derm: No deficits noted. No signs and/or symptoms reported regarding the dermatologic system. Musculoskeletal: No deficits noted. No signs and/or symptoms reported regarding the musculoskeletal system. Historical: - Allergies: 19:09 NKDA; vc1 - PMHx: 19:09 ADD/ADHD; Asthma; Bipolar disorder; vc1 - PSHx: 19:09 None; vc1 - Immunization history:: Client reports receiving the 2nd dose of the Covid vaccine, Flu vaccine is up to date. - Social history:: Smoking status: Patient reports use of chewing tobacco. - Family history:: not pertinent. Screenin:11 [facility] ED Fall Risk Assessment (Adult) History of falling in the last 3 months, vc1 including since admission No falls in past 3 months (0 pts) Confusion or Disorientation No (0 pts) Intoxicated or Sedated No (0 pts) Impaired Gait No (0 pts) Mobility Assist Device Used No (0 pt) Altered Elimination No (0 pt) Score/Fall Risk Level 0 - 2 = Low Risk Oriented to surroundings, Maintained a safe environment, Educated pt \T\ family on fall prevention, incl call for assistance when getting out of bed. Abuse screen: Denies threats or abuse. Nutritional screening: No deficits noted. Tuberculosis screening: No symptoms or risk factors identified. Vital Signs: 19:06 BP 140 / 80; Pulse 68; Resp 18; Temp 97.8; Pulse Ox 99% ; Weight 90.26 kg; Height 5 ft. vc1 11 in. ; Pain 0/10; 19:06 Body Mass Index 27.75 (90.26 kg, 180.34 cm) vc1 19:06 Pain Scale: Adult vc1 ED Course: 18:51 Patient arrived in ED. mr 18:58 French Casey MD is Attending Physician. rt 19:09 Triage completed. vc1 19:10 Arm band placed on right wrist. vc1 19:13 Provided Education on: get a blood pressure machine and monitor your blood pressure, vc1 follow up with PCP. 19:13 No provider procedures requiring assistance completed. Patient did not have IV access vc1 during this emergency room visit. 19:14 Patient has correct armband on for positive identification. Pt discharged from triage. vc1 Administered Medications: No medications were administered Medication: 19:14 VIS not applicable for this client. vc1 Outcome: 19:09 Discharge ordered by . rt 19:13 Discharged to home ambulatory, vc1 19:13 Condition: good 19:13 Discharge instructions given to patient, Instructed on discharge instructions, follow up and referral plans. Demonstrated understanding of instructions, follow-up care, medications, Prescriptions given X 1, 19:14 Patient left the ED. vc1 Signatures: Kyung Eng Reg Reg mr Calcote, Vanessa, RN RN vc1 French Casey MD MD rt
[2023-04-29 20:06] VITALS: BP 140/80; TEMP 97.8; O2SAT 99
== END ==
LOC: ER 18:49
DX: I10 Essential (primary) hypertension (principal)

== ENCOUNTER 2024-01-24 16:04 | Emergency (ER) | payer OTHER ==
--- OUTSIDE RECORDS SUMMARY | 2024-01-24 16:08 | XMS REPORT | Continuity of Care Document ---
Author Name Unknown Address [address] [place] [address] [facility] Address [address] [place] [address] Care Team Providers Care Executive Director Name Role Phone Shirley RAY, [facility] Primary Care Physician [phone] Medications Ordered Medication Name Filled Medication Name Start Date Stop Date Current Medication? Ordering Clinician Indication Dosage Frequency Signature (SIG) Comments Components Source hydroxyzine HCl 25 mg tablet 2023-0 06-14 00:00: 00 Yes mg Ok F Emiliano trazodone 50 mg tablet 2023-0 06-14 00:00: 00 Yes 1mg Ok F Emiliano aripiprazol e 10 mg tablet 2023-0 29 00:00: 00 Yes 1mg Ok F Emiliano hydroxyzine HCl 25 mg tablet 2023-0 4- 00:00: 00 Yes mg Ok F Emiliano aripiprazol e 10 mg tablet 2023-0 4- 00:00: 00 Yes 1mg Ok F Emiliano trazodone 50 mg tablet 2023-0 4-04 00:00: 00 Yes 1mg Ok F Emiliano hydroxyzine HCl 25 mg tablet 2023-0 3- 00:00: 00 Yes mg Ok F Emiliano trazodone 50 mg tablet 4-0 3-07 00:00: 00 Yes 1mg Ok F Emiliano aripiprazol e 10 mg tablet 4-0 3-07 00:00: 00 Yes 1mg Ok F Emiliano aripiprazol e 10 mg tablet 2023-0 2-23 00:00: 00 Yes mg Ok F Emiliano trazodone 50 mg tablet 4-0 2-23 00:00: 00 Yes mg Ok F Emiliano TAKE 1 TAB PO Q 2-23 00:00: 00 Yes 10 Ok F Emiliano hydroxyzine HCl 25 mg tablet 1-24 00:00: 00 Yes mg Ok F Emiliano TAKE 1 TAB PO Q 1-24 00:00: 00 06-28 00:00 :00 No 10 Ok F Emiliano TAKE 1 TABLET BY MOUTH AT BEDTIME 2022-02 00:00: 00 Yes Ok F Emiliano TAKE 1 TAB PO Q 2022-02 00:00: 00 06-28 00:00 :00 No 10 Ok F Emiliano TAKE 1 TABLET AT BEDTIME. 2022-02 00:00: 00 06-28 00:00 :00 No 50 Ok F Emiliano ARIPIPRAZOL E 10 MG TABS 2022-02 0- 00:00: 00 Yes Ok F Emiliano TAKE 1 TAB PO Q 2022-02 0 00:00: 00 06-28 00:00 :00 No 10 Ok F Emiliano TAKE 1 TAB PO TID PRN FOR ANXIETY 2022-02 030 00:00: 00 06-28 00:00 :00 No 25 Ok F Emiliano TAKE 1 TAB PO TID PRN FOR ANXIETY - 00:00: 00 06-28 00:00 :00 No 25 Ok F Emiliano TAKE 1 TAB PO Q HS 9- 00:00: 00 06-28 00:00 :00 No 10 Ok F Emiliano TAKE 1 TAB PO Q HS 9-05 00:00: 00 06-28 00:00 :00 No 10 Ok F Emiliano ARIPIPRAZOL E 10 MG TABS 09-15 00:00: 00 Yes Ok F Emiliano TAKE 1 TAB PO Q HS - 00:00: 00 06-28 00:00 :00 No 10 Ok F Emiliano TAKE 1 TAB PO TID PRN FOR ANXIETY 0 - 00:00: 00 06-28 00:00 :00 No 25 Ok F Emiliano TAKE 1 TAB PO Q HS 5-29 00:00: 00 06-28 00:00 :00 No 10 Ok Cummings TAKE 1 TAB PO Q 4-27 00:00: 00 06-28 00:00 :00 No 10 Ok Diamond Emiliano TAKE 1 TAB PO Q 3-28 00:00: 00 06-28 00:00 :00 No 10 Ok Cummings TAKE 1 TAB PO Q 3-16 00:00: 00 06-28 00:00 :00 No 10 Ok Cummings TAKE 1 TABLET BY MOUTH AT BEDTIME 2-06 00:00: 00 Yes Ok Cummings TAKE 1 TAB PO Q 2-06 00:00: 00 06-28 00:00 :00 No 10 Ok Cummings AZITHROMYCI N 250 MG TABS 2-04 00:00: 00 Yes Ok Cummings ALBUTEROL SULFATE HFA 108 (90 Base) MCG/ACT AERS 2-04 00:00: 00 Yes Ok Cummings ARIPIPRAZOL E 10MG 0 1-10 00:00: 00 Yes [id number] Ok Cummings TAKE 1 TAB PO Q 1-04 00:00: 00 06-28 00:00 :00 No 10 Ok Cummings DICLOFEN SOD 75MG EC 2021-02 1-20 00:00: 00 Yes Ok Cummings ARIPIPRAZOL E 10MG 1 1-20 00:00: 00 Yes Ok Cummings CYCLOBENZAP R 10MG 2021-02 1-20 00:00: 00 Yes Ok Cummings TAKE 1 TABLET BY MOUTH AT BEDTIME 2021-02 0-19 00:00: 00 Yes Ok Cummings ARIPIPRAZOL E 10MG TAB 2021-0 8-10 00:00: 00 Yes Ok Cummings USE DIRECTED BY YOUR COLONOSCOPY PACKET 2021-0 8-10 00:00: 00 Yes Ok Cummings Dose Unknown 2021-0 8-10 00:00: 00 Yes Ok Cummings Dose Unknown 2021-0 8-09 00:00: 00 Yes Ok Cummings &lt 2022-0 8-09 00:00: 00 Yes Ok Cummings TAKE 1 TABLET BY MOUTH EVERY 12 HOURS FOR 5 DAYS 2-0 7-29 00:00: 00 Yes 500 Ok Cummings Dose Unknown 2021-0 7-28 00:00: 00 Yes Ok Cummings Abilify 10 mg tablet 2021-0 4-26 00:00: 00 Yes 1mg Ok Cummings DOXYCYCLINE HYCLATE 100MG 2021-0 4-04 00:00: 00 Yes [id number] Ok Cummings ARIPIPRAZOL E 10MG 2021-0 3-10 00:00: 00 Yes [id number] Ok Cummings Dose Unknown 2021-0 3-09 00:00: 00 Yes Ok Cummings Dose Unknown 2021-0 2-07 00:00: 00 Yes Ok Cummings Abilify 10 mg tablet 2020-1 2-22 00:00: 00 Yes 1mg Ok Cummings Abilify 10 mg tablet 2020-1 1-23 00:00: 00 Yes 1mg Ok Cummings Abilify 10 mg tablet 1 0-25 00:00: 00 Yes 1mg Ok Cummings Abilify 10 mg tablet 2020-0 7-06 00:00: 00 Yes 1mg Ok Cummings Dose Unknown 2020-0 6-25 00:00: 00 Yes Ok Cummings Dose Unknown 2020-0 5-13 00:00: 00 Yes Ok Cummings Dose Unknown 2020-0 4-15 00:00: 00 Yes Ok Cummings Abilify 10 mg tablet 2020-0 3-18 00:00: 00 Yes 1mg Ok Cummings Abilify 10 mg tablet 2020-0 2-23 00:00: 00 Yes 1mg Ok Cummings Abilify 10 mg tablet 2020-0 1-26 00:00: 00 Yes 1mg Ok Cummings Abilify 10 mg tablet 2019-1 2-17 00:00: 00 Yes 1mg Ok Cummings Abilify 10 mg tablet 2019-1 1-18 00:00: 00 Yes 1mg Ok Cummings Abilify 10 mg tablet 2019-1 0-14 00:00: 00 Yes 1mg Ok Cummings Abilify 10 mg tablet 2019-0 9-17 00:00: 00 Yes 1mg Ok Cummings Abilify 10 mg tablet 2019-0 8-19 00:00: 00 Yes 1mg Ok Cummings Abilify 10 mg tablet 2019-0 7-22 00:00: 00 Yes 1mg Ok Cummings Abilify 10 mg tablet 2019-0 6-22 00:00: 00 Yes 1mg Ok Cummings lactulose 20 gram/30 mL oral solution 2019-0 5-21 00:00: 00 Yes 30squar e mm Ok Cummings Dose Unknown 0 5-21 00:00: 00 Yes Ok Cummings Abilify 10 mg tablet 2019-0 5-21 00:00: 00 Yes 1mg Ok Cummings lisinopril 5 mg tablet 2019-0 4-06 00:00: 00 Yes 1mg Ok Cummings Abilify 10 mg tablet 2019-0 4-06 00:00: 00 Yes 1mg Ok Cummings Abilify 10 mg tablet 2019-0 3-09 00:00: 00 Yes 1mg Ok Cummings Abilify 10 mg tablet 2019-0 2-24 00:00: 00 Yes 1mg Ok Cummings Adderall XR 20 mg capsule,ext ended release 2019-0 2-24 00:00: 00 Yes 1mg Ok Cummings Vital Signs Vital Name Observation Time Observation Value Comments S rios BP Systolic 2023-06-29 17:09:00 126 mm[Hg] Iam Cummings BP Diastolic 2023-06-29 17:09:00 84 mm[Hg] Wang phen Lobo Cummings Weight Measured 2023-06-29 17:09:00 209.40 pounds Ok Cummings Height Measured 2023-06-29 17:09:00 71.00 inches Ok Cummings Body Temperature 2023-06-29 17:09:00 98.20 degrees Ok Cummings Heart Rate 2023-06-29 17:09:00 60.00 /min Jeanne en Lobo Cummings Respiratory Rate 2023-06-29 17:09:00 16.00 /min Ok Cummings BP Systolic 2023-04-29 17:54:00 131 mm[Hg] Step hen Lobo Cummings BP Diastolic 2023-04-29 17:54:00 79 mm[Hg] Wang phen F Emiliano Weight Measured 2023-04-29 17:54:00 199.80 pounds Ok F Emiliano Height Measured 2023-04-29 17:54:00 71.00 inches Ok F Emiliano Body Temperature 2023-04-29 17:54:00 98.00 degrees Ok F Emiliano Heart Rate 2023-04-29 17:54:00 86.00 /min Jeanne en F Emiliano Respiratory Rate 2023-04-29 17:54:00 18.00 /min Ok F Emiliano BP Systolic 2023-01-13 13:04:00 Step hen F Emiliano BP Diastolic 2023-01-13 13:04:00 Wang phen F Emiliano Weight Measured 2023-01-13 13:04:00 Ok F Emiliano Height Measured 2023-01-13 13:04:00 Ok F Emiliano Body Temperature 2023-01-13 13:04:00 Ok F Emiliano Heart Rate 2023-01-13 13:04:00 Jeanne en F Emiliano Respiratory Rate 2023-01-13 13:04:00 Ok F Emiliano BP Systolic 2022-12-09 13:47:00 Step hen F Emiliano BP Diastolic 2022-12-09 13:47:00 Wang phen F Emiliano Weight Measured 2022-12-09 13:47:00 Ok F Emiliano Height Measured 2022-12-09 13:47:00 Ok F Emiliano Body Temperature 2022-12-09 13:47:00 Ok F Emiliano Heart Rate 2022-12-09 13:47:00 Jeanne en F Emiliano Respiratory Rate 2022-12-09 13:47:00 Ok F Emiliano BP Systolic 2022-11-11 08:55:00 Step hen F Emiliano BP Diastolic 2022-11-11 08:55:00 Wang phen F Emiliano Weight Measured 2022-11-11 08:55:00 Ok F Emiliano Height Measured 2022-11-11 08:55:00 Ok F Emiliano Body Temperature 2022-11-11 08:55:00 Ok F Emiliano Heart Rate 2022-11-11 08:55:00 Jeanne en F Emiliano Respiratory Rate 2022-11-11 08:55:00 Ok F Emiliano BP Systolic 2022-09-15 15:33:00 Step hen F Emiliano BP Diastolic 2022-09-15 15:33:00 Wang phen F Emiliano Weight Measured 2022-09-15 15:33:00 Ok F Emiliano Height Measured 2022-09-15 15:33:00 Ok F Emiliano Body Temperature 2022-09-15 15:33:00 Ok F Emiliano Heart Rate 2022-09-15 15:33:00 Jeanne en F Emiliano Respiratory Rate 2022-09-15 15:33:00 Ok F Emiliano BP Systolic 2020-08-10 16:32:00 131 mm[Hg] Step hen F Emiliano BP Diastolic 2020-08-10 16:32:00 78 mm[Hg] Wang phen F Emiliano Weight Measured 2020-08-10 16:32:00 200.00 pounds Ok F Emiliano Height Measured 2020-08-10 16:32:00 71.00 inches Ok F Emiliano Body Temperature 2020-08-10 16:32:00 97.90 degrees Ok F Emiliano Heart Rate 2020-08-10 16:32:00 60.00 /min Jeanne en F Emiliano Respiratory Rate 2020-08-10 16:32:00 17.00 /min Ok F Emiliano BP Systolic 2020-02-01 16:04:00 153 mm[Hg] Step hen F Emiliano BP Diastolic 2020-02-01 16:04:00 90 mm[Hg] Wang phen F Emiliano Weight Measured 2020-02-01 16:04:00 219.80 pounds Ok F Emiliano Height Measured 2020-02-01 16:04:00 71.00 inches Ok F Emiliano Body Temperature 2020-02-01 16:04:00 98.20 degrees Ok F Emiliano Heart Rate 2020-02-01 16:04:00 59.00 /min Jeanne en F Emiliano Respiratory Rate 2020-02-01 16:04:00 17.00 /min Ok F Emiliano BP Systolic 2019-07-07 10:18:00 131 mm[Hg] Step hen F Emiliano BP Diastolic 2019-07-07 10:18:00 76 mm[Hg] Wang phen F Emiliano Weight Measured 2019-07-07 10:18:00 239.20 pounds Ok F Emiliano Height Measured 2019-07-07 10:18:00 71.00 inches Ok F Emiliano Body Temperature 2019-07-07 10:18:00 97.90 degrees Ok F Emiliano Heart Rate 2019-07-07 10:18:00 53.00 /min Jeanne en F Emiliano Respiratory Rate 2019-07-07 10:18:00 16.00 /min Ok Cummings BP Systolic 2019-05-23 15:56:00 137 mm[Hg] Iam Cummings BP Diastolic 2019-05-23 15:56:00 77 mm[Hg] Wang Cummings Weight Measured 2019-05-23 15:56:00 234.80 pounds Ok Cummings Height Measured 2019-05-23 15:56:00 71.00 inches Ok Cummings Body Temperature 2019-05-23 15:56:00 97.60 degrees Ok Cummings Heart Rate 2019-05-23 15:56:00 64.00 /min Jeanne en Lobo Cummings Respiratory Rate 2019-05-23 15:56:00 17.00 /min Ok Cummings Encounters Start Date/Time End Date/Time Encounter Type Admission Type Attending [facility] Care Department Encounter ID Source 2023-07-16 11:19:56 2023-07-16 11:19:56 Outpatient [facility] SFA [id number] Ok Cummings 2023-07-06 15:59:40 2023-07-06 15:59:40 Outpatient SFA SFA [id number] Ok Cummings 2023-06-29 16:58:01 2023-06-29 16:58:01 Outpatient SFA SFA [id number] Ok Cummings 2023-06-29 00:00:00 2023-06-29 00:00:00 Outpatient Visit SFA [id number] Ok Cummings 2023-04-29 17:47:40 2023-04-29 17:47:40 Outpatient SFA SFA [id number] Ok Cummings 2023-04-23 16:00:05 2023-04-23 16:00:05 Outpatient SFA SFA [id number] Ok Cummings 2023-01-26 17:13:24 2023-01-26 17:13:24 Outpatient SFA SFA [id number] Ok Cummings 2023-01-21 08:08:10 2023-01-21 08:08:10 Outpatient [facility] [id number] Ok Cummings 2023-01-13 13:00:07 2023-01-13 13:00:07 Outpatient [place] [id number] Ok Cummings 2022-12-15 13:13:37 2022-12-15 13:13:37 Outpatient [facility] [id number] Ok Cummings 2022-12-09 13:43:30 2022-12-09 13:43:30 Outpatient [facility] [id number] Ok Diamond Emiliano 2022-11-11 08:42:17 2022-11-11 08:42:17 Outpatient [facility] [id number] Ok Diamond Emiliano 2022-09-15 13:48:11 2022-09-15 13:48:11 Outpatient [facility] [id number] Ok Cummings 2022-07-02 13:51:08 2022-07-02 13:51:08 Outpatient [facility] [id number] Ok Cummings Results Test Description Test Time Test Comments Results Result Co mments Source GONORRHEA, NAAT, [id number] 20:10:55* Test Item Value Reference Range Interpretation Comme nts GONORRHEA, NAAT, URINE (test code = 43849) NEGATIVE NEGATIVE Testing is perfo rmed with Mary KENY 6800/8800 systems usingreal-time polymerase chain reaction (PCR) method. A negative result does not exclude low level infection, specimensampling error, or collection error. TSH, THIRD [id number] 05:01:56* Test Item Value Reference Range Interpretation Comme nts TSH, THIRD GENERATION (test code = 2821) 1.350 UIU/ML 0.400-4.100 CBC W/AUTO DIFF WITH [id number] 03:29:09* Test Item Value Reference Range Interpretation Comme nts WBC (test code = 1001) 5.8 K/UL 3.5-11.0 RBC (test code = 1002) 5.83 M/UL 4.50-6.10 HEMOGLOBIN (test code = 1003) 16.0 G/DL 13.5-17.0 HEMATOCRIT (test code = 1004) 48.8 % 40.0-51.0 MCV (test code = 1005) 83.7 fL 80.0-99.0 MCH (test code = 1006) 27.4 PG 25.0-33.0 MCHC (test code = 1007) 32.8 G/DL 31.0-36.0 RDW (test code = 1038) 12.5 % 11.5-15.0 NEUTROPHILS (test code = 1008) 36.9 % LYMPHOCYTES (test code = 1010) 45.7 % MONOCYTES (test code = 1011) 9.7 % EOSINOPHILS (test code = 1012) 6.6 % BASOPHILS (test code = 1013) 0.9 % IMMATURE GRANULOCYTES (test code = 1036) 0.2 % NUCLEATED RBCS (test code = 1065) 0.0 /100 WBC'S See_Comment [Automated IKOTECHa ge] The system which generated this result transmitted reference range: 0.0. The reference range was not used to interpret this result as normal/abnormal. PLATELET COUNT (test code = 1015) 211 K/UL 130-400 ABSOLUTE NEUTROPHILS (test code = 1066) 2.14 K/UL 1.50-7.50 ABSOLUTE LYMPHOCYTES (test code = 1067) 2.64 K/UL 1.00-4.00 ABSOLUTE MONOCYTES (test code = 1068) 0.56 K/UL 0.20-1.00 ABSOLUTE EOSINOPHILS (test code = 1040) 0.38 K/UL 0.00-0.50 ABSOLUTE BASOPHILS (test code = 1069) 0.05 K/UL 0.00-0.20 ABS IMMATURE GRANULOCYTES (test code = 1020) 0.01 K/UL 0.00-0.10 ABS NUCLEATED RBCS (test code = 16501) 0.00 K/UL 0.00-0.11 [id number] 03:12:13* Test Item Value Reference Range Interpretation Comme nts RPR RESULT (test code = 3501) NON-REACTIVE NON-REACTIVE RPR TITER (test code = 3500) NOT INDIC. TITER NOT INDIC. UNLESS OTHERWISE INDICATED, ALL TESTING PERFORMED AT [facility] [address] [place] [id number] [address] BRUSHER: SATURNINO RUTHERFORD M.D. CLIA NUMBER [id number] [facility] [place]. [id number] HIV 1/2 4TH GEN, RFLX [id number] 03:11:12* Test Item Value Reference Range Interpretation Comme nts HIV 1/2 4TH GEN, RFLX CONF ( test code = 3514) NON-REACTIVE NON-REACTIVE LIPID [id number] 02:59:01* Test Item Value Reference Range Interpretation Comme nts CHOLESTEROL (test code = 2210) 166 MG/DL <200 TRIGLYCERIDES (test code = 2232) 83 MG/DL <150 HDL CHOLESTEROL (test code = 2220) 73 MG/DL >39 CALC LDL CHOL (test code = 2237) 76 MG/DL <100 NOTE: CALCULATED LDL IS BASED ON ADRIANO-FRANCO METHOD WHICHINCLUDES ADJUSTABLE TRIGLYCERIDE:VLDL CHOLESTEROL RATIO.THIS FACTOR VARIES BY MEASURED TRIGLYCERIDE AND NON-HDLCHOLESTEROL CONCENTRATIONS WITH INCREASED CALCULATED LDL SEENIN HIGHER TRIGLYCERIDE OR LOWER NON-HDL SPECIMENS. FOR MOREINFORMATION, SEE CLIENT ANNOUNCEMENT AT [email or web address] [email or web address] RATIO LDL/HDL (test code = 2238) 1.04 RATIO <3.55 COMPREHENSIVE METABOLIC [id number] 02:59:01* Test Item Value Reference Range Interpretation Comme nts GLUCOSE (test code = 2217) 99 MG/DL 70-99 BUN (test code = 2208) 15 MG/DL 6-20 CREATININE (test code = 2214) 0.86 MG/DL 0.80-1.40 eGFR (2020 CKD-EPI) (test code = 87310) 124 ML/MIN/1.73 >60 CALC BUN/CREAT (test code = 2235) 17 RATIO 6-28 SODIUM (test code = 2231) 138 MEQ/L 133-146 POTASSIUM (test code = 2228) 4.3 MEQ/L 3.5-5.4 CHLORIDE (test code = 2215) 102 MEQ/L 95-107 CARBON DIOXIDE (test code = 2206) 26 MEQ/L 19-31 CALCIUM (test code = 2209) 9.4 MG/DL 8.5-10.5 PROTEIN, TOTAL (test code = 222) 6.8 G/DL 6.1-8.3 ALBUMIN (test code = 220) 4.5 G/DL 3.5-5.2 CALC GLOBULIN (test code = 2240) 2.3 G/DL 1.9-3.7 CALC A/G RATIO (test code = 2234) 2.0 RATIO 1.0-2.6 BILIRUBIN, TOTAL (test code = 2207) 0.3 MG/DL <=1.2 ALKALINE PHOSPHATASE (test code = 2204) 92 U/L 40-120 AST (test code = 2218) 73 U/L 9-50 H ALT (test code = 2219) 143 U/L 5-50 H CBC W/AUTO DIFF WITH [id number] 07:23:07* Test Item Value Reference Range Interpretation Comme nts WBC (test code = 1001) 8.1 K/UL 3.5-11.0 RBC (test code = 1002) 5.78 M/UL 4.50-6.10 HEMOGLOBIN (test code = 1003) 16.0 G/DL 13.5-17.0 HEMATOCRIT (test code = 1004) 49.0 % 40.0-51.0 MCV (test code = 1005) 84.8 fL 80.0-99.0 MCH (test code = 1006) 27.7 PG 25.0-33.0 MCHC (test code = 1007) 32.7 G/DL 31.0-36.0 RDW (test code = 1038) 11.9 % 11.5-15.0 NEUTROPHILS (test code = 1008) 50.2 % LYMPHOCYTES (test code = 1010) 37.4 % MONOCYTES (test code = 1011) 8.9 % EOSINOPHILS (test code = 1012) 2.8 % BASOPHILS (test code = 1013) 0.6 % IMMATURE GRANULOCYTES (test code = 1036) 0.1 % NUCLEATED RBCS (test code = 1065) 0.0 /100 WBC'S See_Comment [Automated messa ge] The system which generated this result transmitted reference range: 0.0. The reference range was not used to interpret this result as normal/abnormal. PLATELET COUNT (test code = 1015) 205 K/UL 130-400 ABSOLUTE NEUTROPHILS (test code = 1066) 4.05 K/UL 1.50-7.50 ABSOLUTE LYMPHOCYTES (test code = 1067) 3.02 K/UL 1.00-4.00 ABSOLUTE MONOCYTES (test code = 1068) 0.72 K/UL 0.20-1.00 ABSOLUTE EOSINOPHILS (test code = 1040) 0.23 K/UL 0.00-0.50 ABSOLUTE BASOPHILS (test code = 1069) 0.05 K/UL 0.00-0.20 ABS IMMATURE GRANULOCYTES (test code = 1020) 0.01 K/UL 0.00-0.10 ABS NUCLEATED RBCS (test code = 23310) 0.00 K/UL 0.00-0.11 TSH, THIRD [id number] 05:22:03* Test Item Value Reference Range Interpretation Comme nts TSH, THIRD GENERATION (test code = 2821) 1.410 UIU/ML 0.400-4.100 COMPREHENSIVE METABOLIC [id number] 04:20:58* Test Item Value Reference Range Interpretation Comme nts GLUCOSE (test code = 7) 89 MG/DL 70-99 BUN (test code = 2207) 12 MG/DL 6-20 CREATININE (test code = 2213) 0.91 MG/DL 0.80-1.40 eGFR (2020 CKD-EPI) (test code = 50163) 121 ML/MIN/1.73 >60 CALC BUN/CREAT (test code = 2235) 13 RATIO 6-28 SODIUM (test code = 223) 142 MEQ/L 133-146 POTASSIUM (test code = 2228) 4.1 MEQ/L 3.5-5.4 CHLORIDE (test code = 2215) 102 MEQ/L 95-107 CARBON DIOXIDE (test code = 2206) 29 MEQ/L 19-31 CALCIUM (test code = 220) 9.9 MG/DL 8.5-10.5 PROTEIN, TOTAL (test code = 2228) 7.1 G/DL 6.1-8.3 ALBUMIN (test code = 2200) 4.7 G/DL 3.5-5.2 CALC GLOBULIN (test code = 2240) 2.4 G/DL 1.9-3.7 CALC A/G RATIO (test code = 2233) 2.0 RATIO 1.0-2.6 BILIRUBIN, TOTAL (test code = 2206) 0.5 MG/DL <=1.2 ALKALINE PHOSPHATASE (test code = 2203) 70 U/L 40-121 AST (test code = 8) 33 U/L 9-50 ALT (test code = 2218) 16 U/L 5-50 LIPID [id number] 04:20:58* Test Item Value Reference Range Interpretation [...] SPECIMENS. FOR MOREINFORMATION, SEE CLIENT ANNOUNCEMENT AT [email or web address] RISK RATIO LDL/HDL (test code = 2238) 1.26 RATIO <3.55 UNLESS OTHERW ISE INDICATED, ALL TESTING PERFORMED AT [facility] [address] [place] [address] STRAW HAT BRUSHER: SATURNINO RUTHERFORD M.D. [place] NUMBER [id number] [facility] [place]. [id number] CBC W/AUTO [id number] 00:00:00* Test Item Value Reference Range Interpretation Comme nts WBC (test code = 1001) 8.1 K/UL RBC (test code = 1002) 5.78 M/UL HEMOGLOBIN (test code = 1003) 16.0 G/DL HEMATOCRIT (test code = 1004) 49.0 % MCV (test code = 1005) 84.8 fL MCH (test code = 1006) 27.7 PG MCHC (test code = 1007) 32.7 G/DL RDW (test code = 1038) 11.9 % NEUTROPHILS (test code = 1008) 50.2 % LYMPHOCYTES (test code = 1010) 37.4 % MONOCYTES (test code = 1011) 8.9 % EOSINOPHILS (test code = 1012) 2.8 % BASOPHILS (test code = 1013) 0.6 % IMMATURE GRANULOCYTES (test code = 1036) 0.1 % NUCLEATED RBCS (test code = 1065) 0.0 /100WBC'S PLATELET COUNT (test code = 1015) 205 K/UL ABSOLUTE NEUTROPHILS (test c ode = 1066) 4.05 K/UL ABSOLUTE LYMPHOCYTES (test c ode = 1067) 3.02 K/UL ABSOLUTE MONOCYTES (test cod e = 1068) 0.72 K/UL ABSOLUTE EOSINOPHILS (test c ode = 1040) 0.23 K/UL ABSOLUTE BASOPHILS (test cod e = 1069) 0.05 K/UL ABS IMMATURE GRANULOCYTES (t est code = 1020) 0.01 K/UL ABS NUCLEATED RBCS (test cod e = 61531) 0.00 K/UL Ok CummingsCOMPREHENSIVE METABOLIC [id number] 00:00:00* Test Item Value Reference Range Interpretation Comme nts GLUCOSE (test code = 2217) 89 MG/DL BUN (test code = 2208) 12 MG/DL CREATININE (test code = 2214) 0.91 MG/DL eGFR (2020 CKD-EPI) (test code = 81360) 121 ML/MIN/1.73 CALC BUN/CREAT (test code = 2235) 13 RATIO SODIUM (test code = 2231) 142 MEQ/L POTASSIUM (test code = 2228) 4.1 MEQ/L CHLORIDE (test code = 2215) 102 MEQ/L CARBON DIOXIDE (test code = 2206) 29 MEQ/L CALCIUM (test code = 2209) 9.9 MG/DL PROTEIN, TOTAL (test code = 2229) 7.1 G/DL ALBUMIN (test code = 2201) 4.7 G/DL CALC GLOBULIN (test code = 2240) 2.4 G/DL CALC A/G RATIO (test code = 2234) 2.0 RATIO BILIRUBIN, TOTAL (test code = 2207) 0.5 MG/DL ALKALINE PHOSPHATASE (test code = 2204) 70 U/L AST (test code = 2218) 33 U/L ALT (test code = 2219) 16 U/L Ok CummingsTSH, THIRD [id number] 00:00:00* Test Item Value Reference Range Interpretation Comme nts TSH, THIRD GENERATION (test code = 2821) 1.410 UIU/ML Ok CummingsLIPID [id number] 00:00:00* Test Item Value Reference Range Interpretation Comme nts CHOLESTEROL (test code = 2210) 168 MG/DL TRIGLYCERIDES (test code = 2232) 35 MG/DL HDL CHOLESTEROL (test code = 2220) 70 MG/DL CALC LDL CHOL (test code = 2237) 88 MG/DL RISK RATIO LDL/HDL (test cod e = 2238) 1.26 RATIO Ok CummingsTHYROID II PROFILE (T3U, T4, T7, TSH)2020-02-03 00:00:00* Test Item Value Reference Range Interpretation Comme nts T-UPTAKE (test code = 2817) 33.1 % THYROX. BIND. CAPAC. (test c ode = 44823) 1.0 T4 (THYROXINE) (test code = 2819) 7.0 UG/DL CORRECTED T4 (FTI) (test cod e = 2820) 7.0 UG/DL TSH, THIRD GENERATION (test code = 2821) 0.538 UIU/ML Ok CummingsCBC W/AUTO [id number] 00:00:00* Test Item Value Reference Range Interpretation Comme nts WBC (test code = 1001) 8.6 K/UL RBC (test code = 1002) 6.33 M/UL HEMOGLOBIN (test code = 1003) 17.0 G/DL HEMATOCRIT (test code = 1004) 51.1 % MCV (test code = 1005) 80.7 fL MCH (test code = 1006) 26.9 PG MCHC (test code = 1007) 33.3 G/DL RDW (test code = 1038) 12.8 % NEUTROPHILS (test code = 1008) 63.0 % LYMPHOCYTES (test code = 1010) 20.7 % MONOCYTES (test code = 1011) 8.5 % EOSINOPHILS (test code = 1012) 7.2 % BASOPHILS (test code = 1013) 0.6 % PLATELET COUNT (test code = 1015) 173 K/UL Ok CummingsCOMPREHENSIVE METABOLIC [id number] 00:00:00* Test Item Value Reference Range Interpretation Comme nts GLUCOSE (test code = 2217) 115 MG/DL BUN (test code = 2208) 7 MG/DL CREATININE (test code = 2214) 0.92 MG/DL eGFR AMER. (test cod e = 33703) 138 ML/MIN/1.73 eGFR NON- AMER. (test code = 14093) 119 ML/MIN/1.73 CALC BUN/CREAT (test code = 2235) 8 RATIO SODIUM (test code = 2231) 143 MEQ/L POTASSIUM (test code = 2228) 3.7 MEQ/L CHLORIDE (test code = 2215) 106 MEQ/L CARBON DIOXIDE (test code = 2206) 26 MEQ/L CALCIUM (test code = 2209) 9.7 MG/DL PROTEIN, TOTAL (test code = 2229) 6.5 G/DL ALBUMIN (test code = 2201) 4.3 G/DL CALC GLOBULIN (test code = 2240) 2.2 G/DL CALC A/G RATIO (test code = 2234) 2.0 RATIO BILIRUBIN, TOTAL (test code = 2207) 0.7 MG/DL ALKALINE PHOSPHATASE (test code = 2204) 69 U/L AST (test code = 2218) 27 U/L ALT (test code = 2219) 23 U/L Ok Diamond EmilianoCBC W/AUTO [id number] 00:00:00* Test Item Value Reference Range Interpretation Comme nts WBC (test code = 1001) 5.3 K/UL RBC (test code = 1002) 5.53 M/UL HEMOGLOBIN (test code = 1003) 15.0 G/DL HEMATOCRIT (test code = 1004) 44.5 % MCV (test code = 1005) 80.5 fL MCH (test code = 1006) 27.1 PG MCHC (test code = 1007) 33.7 G/DL RDW (test code = 1038) 12.4 % NEUTROPHILS (test code = 1008) 39.4 % LYMPHOCYTES (test code = 1010) 36.6 % MONOCYTES (test code = 1011) 10.4 % EOSINOPHILS (test code = 1012) 12.7 % BASOPHILS (test code = 1013) 0.9 % PLATELET COUNT (test code = 1015) 142 K/UL Ok Diamond EmilianoHEMOGLOBIN [id number] 00:00:00* Test Item Value Reference Range Interpretation Comme [facility] HEMOGLOBIN A1c (test code = 91995) 5.5 % Ok Diamond [id number] 00:00:00* Test Item Value Reference Range Interpretation Comme [facility] TSH, THIRD GENERATION (test code = 2821) 0.386 UIU/ML Ok Cummings
--- NOTE | 2024-01-24 16:40 | ER ---
Nurse's Notes [facility] Name: Alessandra Harp Jr Age: 23 yrs Sex: Male : 2000 Arrival Date: 01/24/2024 Time: 16:04 Bed Waiting Private MD: Diagnosis: ED Course: 01/23 16:08 Patient arrived in ED. mg5 16:09 Patient's name was called from ER lobby. No response. aa5 16:10 [facility]C [facility] dr5 16:10 Jarrod Ríos MD is Attending Physician. dr5 16:13 Patient's name was called from ER lobby. No response. aa5 16:39 Patient's name was called from ER lobby. No response. Unable to locate patient. Will aa5 disposition as left without being seen by a provider. Administered Medications: No medications were administered Outcome: 16:39 Eloped from waiting room, aa5 16:40 Patient left the ED. aa5 Signatures: Jeri Craven RN RN aa5 Vanessa Ryan mg5 Tye Olson FNP-C FNP-Cdr5
== END 2024-01-24 16:40 | disposition left against medical advice (07) ==
LOC: ER 16:04
DX: Z02.9 Encounter for administrative examinations, unspecified (principal)

== ENCOUNTER 2024-01-26 06:33 | Emergency (ER) | payer OTHER ==
--- OUTSIDE RECORDS SUMMARY | 2024-01-26 06:35 | XMS REPORT | Continuity of Care Document ---
Author Name Unknown Address [address] [facility] [place] [address] [facility] Address [address] [facility] [address] [place] [address] Care Team Providers Care Tin Stacker Name Role Phone Shirley RAY, [facility] Primary Care Physician [phone] Medications Ordered Medication Name Filled Medication Name [...] Emiliano hydroxyzine HCl 25 mg tablet 2023-0 3-07 00:00: 00 Yes mg Ok F Emiliano [...] BEDTIME 2022-02 00:00: 00 Yes Ok F Emiliaon TAKE 1 TAB PO Q 2022-02 00:00: [...] E 10MG 0 1-10 00:00: 00 Yes [id number] Ok Cummings TAKE 1 TAB PO Q [...] HYCLATE 100MG 2021-0 4-04 00:00: 00 Yes [id number] Ok Cummings ARIPIPRAZOL E 10MG 2021-0 3-10 00:00: 00 Yes [id number] Ok Cummings Dose Unknown 2021-0 3-09 00:00: [...] tablet 2019-0 3-09 00:00: 00 Yes 1mg kO Cummings Abilify 10 mg tablet 2019-0 2-24 [...] End Date/Time Encounter Type Admission Type Attending [facility] Care Department Encounter ID Source 2023-07-16 11:19:56 2023-07-16 11:19:56 Outpatient SFA SFA [id number] Ok Cummings 2023-07-06 15:59:40 2023-07-06 15:59:40 Outpatient SFA SFA [id number] Ok Cummings 2023-06-29 16:58:01 2023-06-29 16:58:01 Outpatient SFA SFA [id number] Ok Cummings 2023-06-29 00:00:00 2023-06-29 00:00:00 Outpatient Visit SFA [id number] Ok Cummings 2023-04-29 17:47:40 2023-04-29 17:47:40 Outpatient SFA SFA [id number] Ok Cummings 2023-04-23 16:00:05 2023-04-23 16:00:05 Outpatient SFA SFA [id number] Ok Cummings 2023-01-26 17:13:24 2023-01-26 17:13:24 Outpatient SFA SFA [id number] Ok Cummings 2023-01-21 08:08:10 2023-01-21 08:08:10 Outpatient [facility] [id number] Ok Cummings 2023-01-13 13:00:07 2023-01-13 13:00:07 Outpatient [place] [id number] Ok Cummings 2022-12-15 13:13:37 2022-12-15 13:13:37 Outpatient [facility] [id number] Ok Cummings 2022-12-09 13:43:30 2022-12-09 13:43:30 Outpatient [facility] [id number] Ok Diamond Emiliano 2022-11-11 08:42:17 2022-11-11 08:42:17 Outpatient [facility] [id number] Ok Diamond Emiliano 2022-09-15 13:48:11 2022-09-15 13:48:11 Outpatient [facility] [id number] Ok Cummings 2022-07-02 13:51:08 2022-07-02 13:51:08 Outpatient [facility] [id number] Ok Cummigns Results Test Description Test Time Test Comments Results Result Co mments Source GONORRHEA, NAAT, [id number] 20:10:55* Test Item Value Reference Range Interpretation Comme nts GONORRHEA, NAAT, URINE (test code = 24908) NEGATIVE NEGATIVE Testing is perfo rmed with Mary KENY 6800/8800 systems usingreal-time polymerase chain reaction (PCR) method. A negative result does not exclude low level infection, specimensampling error, or collection error. TSH, THIRD [id number] 05:01:56* Test Item Value Reference Range Interpretation Comme nts TSH, THIRD GENERATION (test code = 2821) 1.350 UIU/ML 0.400-4.100 CBC W/AUTO DIFF WITH [id number] 03:29:09* Test Item Value Reference Range Interpretation [...] = 1065) 0.0 /100 WBC'S See_Comment [Automated Rapid7a ge] The system which generated this result [...] 0.00-0.10 ABS NUCLEATED RBCS (test code = 57319) 0.00 K/UL 0.00-0.11 [id number] 03:12:13* Test Item Value Reference Range Interpretation Comme nts RPR RESULT (test code = 3501) NON-REACTIVE NON-REACTIVE RPR TITER (test code = 3500) NOT INDIC. TITER NOT INDIC. UNLESS OTHERWISE INDICATED, ALL TESTING PERFORMED AT [facility] [address] [place] [address] ARMATURE WINDER REPAIRER: SATURNINO RUTHERFORD M.D. CLIA NUMBER [id number] [facility] [place] [place]. [id number] HIV 1/2 4TH GEN, RFLX [id number] 03:11:12* Test Item Value Reference Range Interpretation Comme nts HIV 1/2 4TH GEN, RFLX CONF ( test code = 3514) NON-REACTIVE NON-REACTIVE LIPID [id number] 02:59:01* Test Item Value Reference Range Interpretation [...] SPECIMENS. FOR MOREINFORMATION, SEE CLIENT ANNOUNCEMENT AT [email or web address] /CalcLDL-C RISK RATIO LDL/HDL (test code = 2238) 1.04 RATIO <3.55 COMPREHENSIVE METABOLIC [id number] 02:59:01* Test Item Value Reference Range Interpretation Comme nts GLUCOSE (test code = 2217) 99 MG/DL 70-99 BUN (test code = 2208) 15 MG/DL 6-20 CREATININE (test code = 2214) 0.86 MG/DL 0.80-1.40 eGFR (2020 CKD-EPI) (test code = 80206) 124 ML/MIN/1.73 >60 CALC BUN/CREAT (test code [...] U/L 5-50 H CBC W/AUTO DIFF WITH [id number] 07:23:07* Test Item Value Reference Range Interpretation [...] 0.00-0.10 ABS NUCLEATED RBCS (test code = 99645) 0.00 K/UL 0.00-0.11 TSH, THIRD [id number] 05:22:03* Test Item Value Reference Range Interpretation Comme nts TSH, THIRD GENERATION (test code = 2821) 1.410 UIU/ML 0.400-4.100 COMPREHENSIVE METABOLIC [id number] 04:20:58* Test Item Value Reference Range Interpretation Comme nts GLUCOSE (test code = 7) 89 MG/DL 70-99 BUN (test code = 2207) 12 MG/DL 6-20 CREATININE (test code = 2213) 0.91 MG/DL 0.80-1.40 eGFR (2020 CKD-EPI) (test code = 27042) 121 ML/MIN/1.73 >60 CALC BUN/CREAT (test code [...] code = 2218) 16 U/L 5-50 LIPID [id number] 04:20:58* Test Item Value Reference Range Interpretation [...] SPECIMENS. FOR MOREINFORMATION, SEE CLIENT ANNOUNCEMENT AT [email or web address] /CalcLDL-C RISK RATIO LDL/HDL (test code = 2238) 1.26 RATIO <3.55 UNLESS OTHERW ISE INDICATED, ALL TESTING PERFORMED AT [facility] [address] [place] [address] ARMATURE WINDER REPAIRER: SATURNINO RUTHERFORD M.D. IA NUMBER [id number] [facility] [place]. [id number] CBC W/AUTO [id number] 00:00:00* Test Item Value Reference Range Interpretation [...] ABS NUCLEATED RBCS (test cod e = 66580) 0.00 K/UL Ok CummingsCOMPREHENSIVE METABOLIC [id number] 00:00:00* Test Item Value Reference Range Interpretation Comme nts GLUCOSE (test code = 2217) 89 MG/DL BUN (test code = 2208) 12 MG/DL CREATININE (test code = 2214) 0.91 MG/DL eGFR (2020 CKD-EPI) (test code = 03718) 121 ML/MIN/1.73 CALC BUN/CREAT (test code = [...] = 2219) 16 U/L Ok CummingsTSH, THIRD [id number] 00:00:00* Test Item Value Reference Range Interpretation Comme nts TSH, THIRD GENERATION (test code = 2821) 1.410 UIU/ML Ok CummingsLIPID [id number] 00:00:00* Test Item Value Reference Range Interpretation [...] THYROX. BIND. CAPAC. (test c ode = 82784) 1.0 T4 (THYROXINE) (test code = 2819) 7.0 UG/DL CORRECTED T4 (FTI) (test cod e = 2820) 7.0 UG/DL TSH, THIRD GENERATION (test code = 2821) 0.538 UIU/ML Ok CummingsCBC W/AUTO [id number] 00:00:00* Test Item Value Reference Range Interpretation [...] = 1015) 173 K/UL Ok CummingsCOMPREHENSIVE METABOLIC [id number] 00:00:00* Test Item Value Reference Range Interpretation Comme nts GLUCOSE (test code = 2217) 115 MG/DL BUN (test code = 2208) 7 MG/DL CREATININE (test code = 2214) 0.92 MG/DL eGFR AMER. (test cod e = 67952) 138 ML/MIN/1.73 eGFR NON- AMER. (test code = 15552) 119 ML/MIN/1.73 CALC BUN/CREAT (test code = [...] 2219) 23 U/L Ok Diamond EmilianoCBC W/AUTO [id number] 00:00:00* Test Item Value Reference Range Interpretation [...] = 1015) 142 K/UL Ok Diamond EmilianoHEMOGLOBIN [id number] 00:00:00* Test Item Value Reference Range Interpretation Comme [facility] HEMOGLOBIN A1c (test code = 52105) 5.5 % Ok Diamond [id number] 00:00:00* Test Item Value Reference Range Interpretation Comme [facility] TSH, THIRD GENERATION (test code = 2821) 0.386 UIU/ML Ok Cummings
[2024-01-26 09:44] LABS: SARS-CoV-2 Antigen CONTROL BLUE LINE VIS/BG OK; SARS-CoV-2 Antigen Rapid Res Negative (Negative)
--- NOTE | 2024-01-26 09:48 | ER ---
Nurse's Notes [facility] Name: Alessandra Harp Jr Age: 23 yrs Sex: Male : 2000 Arrival Date: 01/26/2024 Time: 06:33 Bed 18 Private MD: Diagnosis: Acute upper respiratory infection, unspecified Presentation: 01/25 06:50 Chief complaint: Patient states: cough, congestion, headache, body aches, eye pain X3 lg3 days. Coronavirus screen: Client denies travel out of the [place] in the last 14 days. Client presents with at least one sign or symptom that may indicate coronavirus-19. Standard/surgical mask placed on the client. Ebola Screen: No symptoms or risks identified at this time. Initial Sepsis Screen: Does the patient meet any 2 criteria? No. Patient's initial sepsis screen is negative. Does the patient have a suspected source of infection? No. Patient's initial sepsis screen is negative. Risk Assessment: Do you want to hurt yourself or someone else? Patient reports no desire to harm self or others. Onset of symptoms is unknown. 06:50 Method Of Arrival: Ambulatory lg3 06:50 Acuity: SIVA 4 lg3 Triage Assessment: 06:52 General: Appears in no apparent distress. comfortable, Behavior is calm, cooperative. lg3 Pain: Complains of pain in right eye and left eye. EENT: Reports nasal congestion nasal discharge pain in right eye and left eye. Neuro: No deficits noted. Alexander Agitation-Sedation Scale (RASS): 0 - Alert and Calm Level of Consciousness is awake, alert, obeys commands, Oriented to person, place, time, situation, Reports headache. Cardiovascular: No deficits noted. Denies chest pain, shortness of breath, Capillary refill < 3 seconds Clubbing of nail beds is absent JVD is absent Patient's skin is warm and dry. Respiratory: Reports cough that is Airway is patent Respiratory effort is even, unlabored, Respiratory pattern is regular, symmetrical, Breath sounds are clear bilaterally. GI: No deficits noted. No signs and/or symptoms were reported involving the gastrointestinal system. : No signs and/or symptoms were reported regarding the genitourinary system. Derm: No deficits noted. No signs and/or symptoms reported regarding the dermatologic system. Skin is intact, is healthy with good turgor, Skin is dry, Skin is normal, Skin temperature is warm. Musculoskeletal: No deficits noted. No signs and/or symptoms reported regarding the musculoskeletal system. Circulation, motion, and sensation intact. Range of motion: intact in all extremities. Historical: - Allergies: 06:52 NKDA; lg3 - Home Meds: 06:52 Hydroxyzine Oral [Active]; aripiprazole oral [Active]; Trazodone Oral [Active]; lg3 - PMHx: 06:52 ADD/ADHD; Asthma; Bipolar disorder; Anxiety; lg3 - PSHx: 06:52 None; lg3 - Immunization history:: Adult Immunizations up to date. - Infectious Disease History:: Denies. - Social history:: Smoking status: Reported history of juuling and/or vaping. Patient uses alcohol, occasionally. Patient/guardian denies using street drugs. Screenin:07 [facility] ED Fall Risk Assessment (Adult) History of falling in the last 3 months, ap3 including since admission No falls in past 3 months (0 pts) Confusion or Disorientation No (0 pts) Intoxicated or Sedated No (0 pts) Impaired Gait No (0 pts) Mobility Assist Device Used No (0 pt) Altered Elimination No (0 pt) Score/Fall Risk Level 0 - 2 = Low Risk Oriented to surroundings, Maintained a safe environment, Educated pt \T\ family on fall prevention, incl call for assistance when getting out of bed, Assessed \T\ reinforced patient's understanding of fall precautions, Hourly rounding (assess needs \T\ fall precautionary measures) done, Used ambulatory aids as needed (educated on \T\ assisted with), Used gait belt as appropriate. Abuse screen: Denies threats or abuse. Nutritional screening: No deficits noted. Tuberculosis screening: No symptoms or risk factors identified. Assessment: 07:06 General: Appears ill, Behavior is calm, cooperative, appropriate for age. Pain: ap3 Complains of pain in left eye and right eye and head. Neuro: Level of Consciousness is awake, alert, obeys commands, Oriented to person, place, time, situation, Appropriate for age. Cardiovascular: Patient's skin is warm and dry. Respiratory: Reports cough that is Airway is patent Respiratory effort is even, unlabored, Respiratory pattern is regular, symmetrical. EENT: Reports nasal congestion. 09:43 Reassessment: this nurse contacted lab to see if specimens were resulted. ap3 Vital Signs: 06:50 BP 147 / 96; Pulse 70; Resp 17 S; Temp 98.7(O); Pulse Ox 98% on R/A; Weight 115.21 kg lg3 (R); Height 5 ft. 11 in. (R); 07:18 BP 131 / 79; Pulse 86; Resp 17; Pulse Ox 99% on R/A; ap3 09:14 BP 127 / 79; Pulse 76; Resp 19; Pulse Ox 96% ; ap3 06:50 Body Mass Index 35.43 (115.21 kg, 180.34 cm) lg3 ED Course: 06:36 Patient arrived in ED. jj6 06:51 Triage completed. lg3 06:52 Arm band placed on right wrist. lg3 07:06 Chadd Padilla DO is Attending Physician. ms3 07:06 Noemi Mckeon, RN is Primary Nurse. ap3 07:07 Patient has correct armband on for positive identification. Bed in low position. Call ap3 light in reach. Adult w/ patient. Provided Education on: call light education. Pulse ox on. NIBP on. 07:32 SARS RAPID Sent. ap3 07:32 Flu Sent. ap3 09:47 Washington Ríos DO is Referral Physician. ms3 09:47 No provider procedures requiring assistance completed. Patient did not have IV access ap3 during this emergency room visit. Administered Medications: No medications were administered Medication: 09:47 VIS not applicable for this client. ap3 Outcome: 09:47 Discharge ordered by MD. ms3 10:01 Discharged to home ambulatory, ap3 10:01 Condition: good 10:01 Discharge instructions given to patient, Instructed on discharge instructions, follow up and referral plans. medication usage, Demonstrated understanding of instructions, follow-up care, medications, Prescriptions given X 2, 10:01 Patient left the ED. ap3 Signatures: Noemi Mckeon RN RN ap3 Radha Layne RN RN 3 Chadd Padilla DO DO ms3 Sola Barnett jj6
--- NOTE | 2024-01-26 09:48 | EDPHYS ---
Physician Documentation [facility] Name: Alessandra Harp Jr Age: 23 yrs Sex: Male : 2000 Arrival Date: 01/26/2024 Time: 06:33 Bed 18 Private MD: ED Physician Chadd Padilla HPI: 01/25 09:48 This 23 yrs old Black Male presents to ER via Ambulatory with complaints of Cough, ms3 Congestion, Redness of Eye, Headache. 09:48 Mr. Harp presents to the Emergency Department with complaints of congestion, runny ms3 nose, and cough. He reports losing his sense of taste and smell approximately four to five days ago, with taste beginning to return gradually. Mr. Harp initially attributed these symptoms to the flu and self-medicated with [id number] Mucinex and cough drops, which provided some relief. He reports no nausea, vomiting, fever, or chills.. Historical: - Allergies: 06:52 NKDA; lg3 - Home Meds: 06:52 Hydroxyzine Oral [Active]; aripiprazole oral [Active]; Trazodone Oral [Active]; lg3 - PMHx: 06:52 ADD/ADHD; Asthma; Bipolar disorder; Anxiety; lg3 - PSHx: 06:52 None; lg3 - Immunization history:: Adult Immunizations up to date. - Infectious Disease History:: Denies. - Social history:: Smoking status: Reported history of juuling and/or vaping. Patient uses alcohol, occasionally. Patient/guardian denies using street drugs. ROS: 09:48 Constitutional: Negative for fever, and chills. Cardiovascular: Negative for chest ms3 pain, and palpitations. 09:48 ENT: Positive for rhinorrhea, sinus congestion, 09:48 Respiratory: Positive for cough, Exam: 09:48 Constitutional: This is a well developed, well nourished patient who is awake, alert, ms3 and in no acute distress. Chest/axilla: Normal chest wall appearance and motion. Nontender with no deformity. Cardiovascular: Regular rate and rhythm with a normal S1 and S2. No gallops, murmurs, or rubs. Normal PMI, no JVD. No pulse deficits. Respiratory: Lungs have equal breath sounds bilaterally, clear to auscultation and percussion. No rales, rhonchi or wheezes noted. No increased work of breathing, no retractions or nasal flaring. Abdomen/GI: Soft, non-tender, with normal bowel sounds. No distension or tympany. No guarding or rebound. No evidence of tenderness throughout. Skin: Warm, dry with normal turgor. Normal color with no rashes, no lesions, and no evidence of cellulitis. 09:48 ENT: Mouth: PND present. Vital Signs: 06:50 BP 147 / 96; Pulse 70; Resp 17 S; Temp 98.7(O); Pulse Ox 98% on R/A; Weight 115.21 kg lg3 (R); Height 5 ft. 11 in. (R); 07:18 BP 131 / 79; Pulse 86; Resp 17; Pulse Ox 99% on R/A; ap3 09:14 BP 127 / 79; Pulse 76; Resp 19; Pulse Ox 96% ; ap3 06:50 Body Mass Index 35.43 (115.21 kg, 180.34 cm) lg3 MDM: 07:22 Medical Screening Exam initiated ms3 09:48 Differential Diagnosis: Influenza Upper Respiratory Infection Viral Syndrome Other ms3 COVID. Data reviewed: vital signs, nurses notes, lab test result(s), and as a result, I will discharge patient. Counseling: I had a detailed discussion with the patient and/or guardian regarding the historical points, exam findings, and any diagnostic results supporting the discharge/admit diagnosis, lab results, the need for outpatient follow up, to return to the emergency department if symptoms worsen or persist or if there are any questions or concerns that arise at home. Special discussion: I discussed with the patient/guardian in detail that at this point there is no indication for admission to the hospital. It is understood, however, that if the symptoms persist or worsen the patient needs to return immediately for re-evaluation. ED course: Discussed negative flu, COVID with patient. Patient to follow-up with Dr. Ríos in 2 to 3 days. Patient understands and agrees with plan. All questions were answered. Return precautions discussed include worsening symptoms, or any other concerns. On reevaluation patient is alert and oriented x 4, no apparent distress, nontoxic-appearing, speaking full sentences.. 01/25 07:22 Order name: Flu; Complete Time: 09:48 ms3 01/25 07:24 Order name: SARS RAPID; Complete Time: 09:48 ms3 Administered Medications: No medications were administered Disposition Summary: 01/26/24 09:47 Discharge Ordered Notes: Location: Home ms3 Condition: Stable ms3 Diagnosis - Acute upper respiratory infection, unspecified ms3 Followup: ms3 - With: Washington Ríos DO - When: 2 - 3 days - Reason: Recheck today's complaints Discharge Instructions: - Discharge Summary Sheet ms3 - Upper Respiratory Infection, Adult ms3 Forms: - Medication Reconciliation Form ms3 - Antibiotic Education ms3 - Prescription Opioid Use ms3 - Patient Portal Instructions ms3 - Leadership Thank You Letter ms3 Prescriptions: - Claritin 10 mg Oral Tablet - take 1 tablet ORAL route once daily As needed; 30 tablet; Refills: 0, Product ms3 Selection Permitted - benzonatate 200 mg Oral capsule - take 1 capsule ORAL route 3 times per day as needed; 20 capsule; Refills: 0, ms3 Product Selection Permitted Signatures: Dispatcher [employer] Radha Barron RN RN lg3 Chadd Padilla DO DO ms3
[2024-01-26 10:06] VITALS: TEMP 98.7
[2024-01-26 10:08] VITALS: BP 127/79; O2SAT 96
== END 2024-01-26 10:01 | disposition home or self-care (01) ==
LOC: ER 06:33
DX: J06.9 Acute upper respiratory infection, unspecified (principal); Z11.52 Encounter for screening for COVID-19
CPT/HCPCS: 36415; 87804; 87811; 99284